=== PATIENT | male | born 1940 ===

== ENCOUNTER 2020-04-08 06:29 | Outpatient (REF) | payer MEDICARE, MEDICAID, SELFPAY | END 2020-04-08 06:30 | disposition home or self-care (01) | LOC: HO.LAB 06:29 | PROVIDERS: PCP Internal Medicine Geriatric Medicine; Visit Provider Internal Medicine | DX: Z20.822 Contact with and (suspected) exposure to COVID-19 (principal) | CPT/HCPCS: 36415; C9803; U0003 ==

== ENCOUNTER 2020-12-04 14:06 | Outpatient (REF) | payer MEDICARE, MEDICAID, SELFPAY ==
--- NOTE | 2020-12-04 | PFT_ITS ---
FLOWS: FEV1 of 81% of predicted at 2.19 L. FVC 77% of predicted at 2.77 L. FEV1 to FVC ratio of 0.79. No bronchodilator response. LUNG VOLUMES: Total lung capacity 72% of predicted at 4.67 L. Residual volume 81% of predicted at 2.00 L. Slow vital capacity 66% of predicted at 2.66 L. Expiratory reserve volume 39% of predicted at 0.39 L. Diffusion capacity is moderately decreased, diffusion capacity adjust to being mildly decreased after correction for alveolar ventilation. IMPRESSION: Mild restrictive ventilatory defect with no bronchodilator response. Mildly decreased diffusion capacity, particularly of the restrictive ventilatory defect to suggest underlying pulmonary parenchymal disease. Clinical correlation is advised. MD DEVI Roman/MODL / [id number]
== END 2020-12-04 14:07 | disposition home or self-care (01) ==
LOC: HO.RESP 14:06
PROVIDERS: PCP Internal Medicine Geriatric Medicine; Visit Provider Internal Medicine Geriatric Medicine
DX: R05 Cough (principal)
CPT/HCPCS: 94060; 94727; 94729

== ENCOUNTER → 2021-02-26 09:36 | Outpatient (BNVA) | payer MEDICARE, MEDICAID, SELFPAY | PROVIDERS: PCP Internal Medicine Geriatric Medicine; Visit Provider Hospitalist | DX: K21.00 Gastro-esophageal reflux disease with esophagitis, without bleeding (principal); J98.4 Other disorders of lung; R05.3 Chronic cough | CPT/HCPCS: 99202 ==

== ENCOUNTER 2021-04-09 09:24 | Outpatient (REF) | payer MEDICARE, MEDICAID, SELFPAY ==
--- NOTE | ~2021-04-09 | FL_ITS ---
EXAMINATION: FL BARIUM SWALLOW CLINICAL INFORMATION: Gastroesophageal reflux disease COMPARISON: None TECHNIQUE: Barium swallow examination is performed using fluoroscopic evaluation in addition to multiple fluoroscopic spot views. The patient is imaged both upright and prone and using both thick and thin sulfate along with effervescent granules. Barium tablet was also started. Fluoroscopy time: 0.9 minutes DAP: 7 Gycm2 Images: 45 FINDINGS: The swallowing mechanism is normal. Esophageal motility is normal. No aspiration or penetration is seen. There is a small sliding-type hiatal hernia. There is gastroesophageal reflux. No mass or stricture is seen. FL/FL barium swallow IMPRESSION: Small sliding-type hiatal hernia and gastroesophageal reflux.
== END 2021-04-09 09:25 | disposition home or self-care (01) ==
LOC: HO.XRAY 09:24
PROVIDERS: PCP Internal Medicine Geriatric Medicine; Visit Provider Hospitalist
DX: K21.00 Gastro-esophageal reflux disease with esophagitis, without bleeding (principal)
CPT/HCPCS: 74220

== ENCOUNTER → 2021-04-28 09:12 | Outpatient (BNVA) | payer MEDICARE, MEDICAID, SELFPAY | PROVIDERS: PCP Internal Medicine Geriatric Medicine; Visit Provider Hospitalist | DX: K21.00 Gastro-esophageal reflux disease with esophagitis, without bleeding (principal); K44.9 Diaphragmatic hernia without obstruction or gangrene; J98.4 Other disorders of lung; R05.3 Chronic cough | CPT/HCPCS: 99212 ==

== ENCOUNTER 2021-05-12 10:14 | Emergency (ER) | payer MEDICARE, MEDICAID, SELFPAY ==
--- NOTE | ~2021-05-12 | XR_ITS ---
EXAMINATION: XR CHEST CLINICAL INFORMATION: Generalized weakness COMPARISON: Previous chest x-ray July 2018 TECHNIQUE: Frontal view of the chest was obtained. FINDINGS: The cardiac silhouette is enlarged. The hilar and mediastinal contours are unremarkable. The lungs are clear. There is no pleural effusion or pneumothorax. There are degenerative changes of the spine. XR/XR chest 1V IMPRESSION: Enlarged cardiac silhouette.
[2021-05-12 10:18] VITALS: BP 173/73; BP 177/73; PULSE 76; PULSE 79; RESP 18; TEMP 37.1; O2SAT 96; O2SAT 98; BMI 25.8
--- NOTE | 2021-05-12 10:25 | ECG_ITS ---
Test Reason : nausea Blood Pressure : / mmHG Vent. Rate : 070 BPM Atrial Rate : 070 BPM P-R Int : 232 ms QRS Dur : 094 ms QT Int : 410 ms P-R-T Axes : 023 004 070 degrees QTc Int : 442 ms Sinus rhythm with 1st degree A-V block Voltage criteria for left ventricular hypertrophy ( R in aVL , Sokolow-Trujillo , Ariel product ) Anterior infarct , age undetermined Abnormal ECG No previous ECGs available Referred By: Jose Zapata Electronically Signed By:DAGOBERTO ROLAND
[2021-05-12 10:26] VITALS: BP 172/65; PULSE 74
[2021-05-12 10:28] VITALS: BP 160/66; PULSE 71
--- NOTE | 2021-05-12 10:28 | ED.GENADULT ---
HPI - General Adult General Chief complaint: Nausea/Vomiting/Diarrhea Stated complaint: VOMITING AND DIARRHEA X'S 1 DAY FROM MD OFFICE Time Seen by Provider: 05/12/21 10:25 Source: patient, EMS and old records reviewed Mode of arrival: EMS Limitations: no limitations History of Present Illness HPI narrative: A 81-year-old male brought in by ambulance from the doctor office for further evaluation for generalized weakness, vomiting and diarrhea. This is a 81-year-old male end-stage renal disease on dialysis last dialysis was yesterday lasted for 4 hours, patient went to see his primary doctor today for generalized weakness, generalized joint pain, feeling nauseous but no vomiting, had 2 diarrhea since yesterday described as black stool (patient described his stool as always is black because the medicine that he takes. Patient had history of upper endoscopy require some procedure likely esophageal dilation periodically. Patient declined any sick contact, patient received 3 COVID vaccination, do not feel flu-like sickness. PCP sent him into the hospital for further evaluation for his orthostatic vital signs at the office. Related Data Home Medications Medication Instructions Recorded Confirmed acetaminophen 325 mg tablet 325 mg PO QID PRN 02/26/21 (Tylenol) albuterol sulfate 90 mcg/actuation 0 mcg INHALATION 02/26/21 aerosol inhaler aspirin 81 mg tablet,delayed 81 mg PO DAILY 02/26/21 release atorvastatin 20 mg tablet 20 mg PO DAILY 02/26/21 carvedilol 25 mg tablet 25 mg PO BID 02/26/21 insulin aspart U-100 100 unit/mL SUBCUT 02/26/21 (3 mL) subcutaneous pen (Novolog Flexpen U-100 Insulin aspart) ketotifen fumarate 0.025 % (0.035 0 drp OPHTHALMIC (EYE) 02/26/21 %) eye drops (Alaway) omega-3 fatty acids 1,000 mg 0 mg PO BEDTIME 02/26/21 capsule tamsulosin 0.4 mg capsule 0.4 mg PO DAILY 02/26/21 mirtazapine 15 mg tablet 15 mg PO BEDTIME 04/28/21 Previous Rx's Medication Instructions Recorded omeprazole 40 mg capsule,delayed 40 mg PO DAILY #30 cap 02/26/21 release benzonatate 200 mg capsule 200 mg PO BID PRN 30 Days #60 cap 04/28/21 fluticasone furoate 100 1 inh INHALATION DAILY 30 Days #60 04/28/21 mcg-vilanterol 25 mcg/dose ea inhalation powder (Breo Ellipta) Allergies Allergy/AdvReac Type Severity Reaction Status Date / Time No Known Allergies Allergy Verified 04/28/21 09:21 Review of Systems Review of Systems: All other systems are reviewed and are negative Constitutional: Reports as per HPI and Reports no additional constitutional complaints Eyes: Reports as per HPI and Reports no additional eye complaints Reports system reviewed and no additional complaints, except as documented Cardiovascular: Reports as per HPI and Reports no additional cardiovascular complaints Respiratory: Reports as per HPI and Reports no additional respiratory complaints Gastrointestinal: Reports as per HPI and Reports no additional gastrointestinal complaints Genitourinary: Reports no additional female genitourinary complaints Musculoskeletal: Reports no additional musculoskeletal complaints Skin/Breast: Reports system reviewed and no additional complaints, except as docu Psychiatric: Reports no additional psychiatric complaints Endocrine: Reports no additional endocrine complaints Hematologic/Lymphatic: Reports no additional hematologic/lymphatic complaints Allergic/Immunologic: Reports no additional allergic/immunologic complaints Reports system reviewed and no additional complaints, except as documented and Reports Abnormal speech present. [facility] Past Medical History Medical History Chronic cough Chronic restrictive lung disease Diabetes ESRD (end stage renal disease) GERD (gastroesophageal reflux disease) Hiatal hernia Social History Social History Patient Tobacco Use Status: Never used Tobacco Use of substances other than those prescribed or required for medical reasons: No Advance Directives: No Advance Directives Information Provided: No Physical Exam ED Vital Signs: Vital Signs - 24 hr 05/12/21 10:18 05/12/21 10:26 05/12/21 10:28 Temperature 98.8 F Pulse Rate 79 74 71 Respiratory Rate 18 Blood Pressure 173/73 H 172/65 H 160/66 H Pulse Oximetry 96 05/12/21 10:31 05/12/21 14:36 Temperature 98.7 F Pulse Rate 73 73 Respiratory Rate 14 Blood Pressure 140/63 H 168/86 H Pulse Oximetry 95 BMI result Body Mass Index 25.8 Vital signs have been reviewed as appeared to be correct. Blood pressure normal. Heart rate normal. Respiration rate normal. Temperature normal. Oxygen saturation normal. Mild orthostatic hypotensive Appearance: Alert. Oriented X3. No acute distress. Head: Normal external exam. Normocephalic. Atraumatic. No Hughes signs noted. No raccoon eyes noted Eyes: PERRLA. EOMI. Conjunctiva and sclera normal. Eyelids normal. ENT: TM's Normal. Pharynx normal. Uvula midline. Moist mucous membranes. No trismus noted. No drooling noted. No muffled voice noted. Neck: Normal inspection. Neck supple. FROM. No adenopathy. Thyroid Normal. No meningeal signs. No neck mass noted. CVS: Normal heart rate and rhythm. Heart sound normal. No murmurs noted. Pulses normal throughout. Respiratory: No respiratory distress. Painless inspiration. Breath sounds normal. No wheezes/rales/rhonchi noted. Chest nontender. No accessory muscle usage noted or decreased air movement noted. Abdomen: Soft and nontender. Bowel sounds normal in all 4 quadrants. No distention noted. No organomegaly noted. No visible injury noted. Back: No CVA tenderness. Full range of motion noted. Skin: Skin warm and dry. Normal skin color. Normal skin turgor. No rashes/lesions/lacerations noted. Extremities: Left AV fistula. Neuro: Oriented X 3. Cranial nerve exam: II-XII are grossly intact No motor deficit. No sensory deficit. Reflexes normal. Course Course Course Narrative: Assessment and plan. 81-year-old male came in from PCP office for evaluation of vomiting yesterday, patient has no abdominal pain, patient received renal dialysis yesterday for hours, found to be orthostatic at the PCP office, patient received gentle hydration of 500 cc of normal saline, otherwise no leukocytosis, chronic anemia, no urine sample is available patient is aneuric, had 2 elevated troponin with no delta changes, patient has no chest pain, no shortness of breath, no dyspnea, no increase swelling or edema. Patient is able to tolerate p.o. intake in the emergency department without nausea or vomiting. Medical Decision Making Medical Records Medical records reviewed: Yes I reviewed the patient's medical records. Lab Data Lab results reviewed: Yes I reviewed the patient's lab results. Result diagrams: 05/12/21 10:40 05/12/21 10:40 Labs: Lab Results 05/12/21 05/12/21 05/12/21 Range/Units 10:37 10:40 10:40 WBC 8.3 (4.8-10.8) X10*3/uL RBC 3.50 L (4.60-5.80) X10*6/uL Hgb 11.3 L (14.0-18.0) g/dl Hct 34.6 L (42.0-52.0) % MCV 98.9 H (80.0-98.0) fL MCH 32.3 (27.0-33.0) pg MCHC 32.7 (31.0-36.0) g/dl RDW 13.8 (11.0-16.0) % Plt Count 194 (160-400) X10*3/uL MPV 9.2 L (9.4-12.4) fL Immature Gran % (Auto) 0.4 (0.0-0.4) % Neut % (Auto) 87.6 H (45-73) % Lymph % (Auto) 4.7 L (20-40) % Chaves % (Auto) 6.3 (2-11) % Eos % (Auto) 0.6 (0-4) % Baso % (Auto) 0.4 (0-2) % Lymph # (Auto) 0.4 L (1.2-4.9) X10*3/uL Chaves # (Auto) 0.5 (0.1-1.2) X10*3/uL Eos # (Auto) 0.1 (0.0-0.4) X10*3/uL Baso # (Auto) 0.0 (0.0-0.2) X10*3/uL Abs Immat Gran (auto) 0.03 (0.00-0.03) X10*3/uL Absolute Neuts (auto) 7.3 (2.0-8.3) x10*3/uL Absolute Nucleated RBC 0.000 (0.0-0.012) X10*3/uL Nucleated RBC % (auto) 0.0 (0.0-0.2) /100WBC Sodium 137 (135-145) mmol/L Potassium 4.8 (3.3-5.1) mmol/L Chloride 97 (96-108) mmol/L Carbon Dioxide 29 (22-29) mmol/L Anion Gap 16 (12-20) BUN 36 H (9-16) mg/dL Creatinine 8.64 H* (0.5-1.4) mg/dL Estim Creat Clear Calc 6.4 Estimated GFR 6 Random Glucose 187 H (60-115) mg/dL Calcium 9.7 (8.4-10.2) mg/dL Total Bilirubin 1.1 H (0.0-1.0) mg/dL Direct Bilirubin 0.3 (0.0-0.5) mg/dL AST 12 (5-37) U/L ALT 7 (0-40) U/L Alkaline Phosphatase 94 (39-117) U/L Troponin I High Sens (<3.5-35.0) ng/L B-Natriuretic Peptide (<100) pg/mL Total Protein 6.8 (6.5-8.0) g/dL Albumin 4.1 (3.5-5.0) g/dL Lipase 37 (8-78) U/L Stool Occult Blood (NEGATIVE) COVID-19 (JOSLYN) Negative (Negative) COVID-19 Clin Com See Note 05/12/21 05/12/21 05/12/21 Range/Units 10:40 10:40 13:52 WBC (4.8-10.8) X10*3/uL RBC (4.60-5.80) X10*6/uL Hgb (14.0-18.0) g/dl Hct (42.0-52.0) % MCV (80.0-98.0) fL MCH (27.0-33.0) pg MCHC (31.0-36.0) g/dl RDW (11.0-16.0) % Plt Count (160-400) X10*3/uL MPV (9.4-12.4) fL Immature Gran % (Auto) (0.0-0.4) % Neut % (Auto) (45-73) % Lymph % (Auto) (20-40) % Chaves % (Auto) (2-11) % Eos % (Auto) (0-4) % Baso % (Auto) (0-2) % Lymph # (Auto) (1.2-4.9) X10*3/uL Chaves # (Auto) (0.1-1.2) X10*3/uL Eos # (Auto) (0.0-0.4) X10*3/uL Baso # (Auto) (0.0-0.2) X10*3/uL Abs Immat Gran (auto) (0.00-0.03) X10*3/uL Absolute Neuts (auto) (2.0-8.3) x10*3/uL Absolute Nucleated RBC (0.0-0.012) X10*3/uL Nucleated RBC % (auto) (0.0-0.2) /100WBC Sodium (135-145) mmol/L Potassium (3.3-5.1) mmol/L Chloride (96-108) mmol/L Carbon Dioxide (22-29) mmol/L Anion Gap (12-20) BUN (9-16) mg/dL Creatinine (0.5-1.4) mg/dL Estim Creat Clear Calc Estimated GFR Random Glucose (60-115) mg/dL Calcium (8.4-10.2) mg/dL Total Bilirubin (0.0-1.0) mg/dL Direct Bilirubin (0.0-0.5) mg/dL AST (5-37) U/L ALT (0-40) U/L Alkaline Phosphatase (39-117) U/L Troponin I High Sens 47.2 H 48.3 H (<3.5-35.0) ng/L B-Natriuretic Peptide 3291 H (<100) pg/mL Total Protein (6.5-8.0) g/dL Albumin (3.5-5.0) g/dL Lipase (8-78) U/L Stool Occult Blood NEGATIVE (NEGATIVE) COVID-19 (JOSLYN) (Negative) COVID-19 Clin Com Imaging Data Chest x-ray: Attestation: I personally reviewed and interpreted this imaging study as follows: Radiologist's impression: Enlarged cardiac silhouette. ECG Data Attestation: I personally reviewed and interpreted this ECG as follows: Interpretation: Sinus rhythm with first-degree AV block, left axis deviation, LVH. Discharge Plan Discharge Clinical Impression: Dehydration, Chronic kidney failure, Vomiting Patient Disposition: Home, Self-Care Instructions: Dehydration (ED) Prescriptions: No Action mirtazapine 15 mg tablet 15 mg PO BEDTIME 0RF benzonatate 200 mg capsule 200 mg PO BID PRN (Reason: cough) 30 Days Qty: 60 0RF Breo Ellipta 100-25 mcg/dose blister with device 1 inh inhalation DAILY 30 Days Qty: 60 11RF insulin aspart U-100 [Novolog Flexpen U-100 Insulin] 100 unit/mL (3 mL) insulin pen subcut 0RF tamsulosin 0.4 mg capsule 0.4 mg PO DAILY 0RF aspirin 81 mg tablet,delayed release (DR/EC) 81 mg PO DAILY 0RF atorvastatin 20 mg tablet 20 mg PO DAILY 0RF carvedilol 25 mg tablet 25 mg PO BID 0RF ketotifen fumarate [Alaway] 0.025 % (0.035 %) drops 0 drp ophthalmic (eye) 0RF albuterol sulfate 90 mcg/actuation HFA aerosol inhaler 0 mcg inhalation 0RF omega-3 fatty acids 1,000 mg capsule 0 mg PO BEDTIME 0RF acetaminophen [Tylenol] 325 mg tablet 325 mg PO QID PRN0RF omeprazole 40 mg capsule,delayed release(DR/EC) 40 mg PO DAILY Qty: 30 6RF Referrals: Name,MD Abdiel [Primary Care Provider] - 2 days
[2021-05-12 10:31] VITALS: BP 140/63; PULSE 73
[2021-05-12] MEDS: 0.9 % Sodium Chloride 1,000 ML 500 ML IV (10:44)
[2021-05-12 10:47] LABS: MANUAL DIFF FLAG NO
[2021-05-12 10:48] LABS: Basophils Percent Auto 0.4 % (0-2); Eosinophils Absolute Auto 0.1 X10*3/uL (0.0-0.4); Eosinophils Percent Auto 0.6 % (0-4); Hematocrit 34.6 % (42.0-52.0); Hemoglobin 11.3 g/dl (14.0-18.0); Imm Gran Abs Auto 0.03 X10*3/uL (0.00-0.03); Imm Gran Pct Auto 0.4 % (0.0-0.4); Lymphocytes Absolute Auto 0.4 X10*3/uL (1.2-4.9); Lymphocytes Percent Auto 4.7 % (20-40); Mean Corpuscular HGB Conc 32.7 g/dl (31.0-36.0); Mean Corpuscular Hemoglobin 32.3 pg (27.0-33.0); Mean Corpuscular Volume 98.9 fL (80.0-98.0); Mean Platelet Volume 9.2 fL (9.4-12.4); Monocytes Absolute Auto 0.5 X10*3/uL (0.1-1.2); Monocytes Percent Auto 6.3 % (2-11); Neutrophils Absolute Auto 7.3 x10*3/uL (2.0-8.3); Neutrophils Percent Auto 87.6 % (45-73); Platelet Count 194 X10*3/uL (160-400); Red Cell Distribution Width 13.8 % (11.0-16.0); White Blood Count 8.3 X10*3/uL (4.8-10.8)
[2021-05-12 10:49] LABS: OBS Int Ctl Valid YES; OBS1 NEGATIVE (NEGATIVE)
[2021-05-12 11:12] LABS: Alanine Aminotransferase 7 U/L (0-40); Albumin Level 4.1 g/dL (3.5-5.0); Alkaline Phosphatase 94 U/L (39-117); Anion Gap 16 (12-20); Aspartate Amino Transferase 12 U/L (5-37); Bilirubin Direct 0.3 mg/dL (0.0-0.5); Bilirubin Total 1.1 mg/dL (0.0-1.0); Blood Urea Nitrogen 36 mg/dL (9-16); Calcium 9.7 mg/dL (8.4-10.2); Carbon Dioxide 29 mmol/L (22-29); Chloride 97 mmol/L (96-108); Creatinine Clr Calc Pharmacy 6.4; Estimated Glomerular Filt Rate 6; Glucose Random 187 mg/dL (60-115); Lipase 37 U/L (8-78); Potassium 4.8 mmol/L (3.3-5.1); Sodium 137 mmol/L (135-145); Total Protein 6.8 g/dL (6.5-8.0)
[2021-05-12 11:14] LABS: COVID-19 Test Negative (Negative)
[2021-05-12 11:15] LABS: B Type Natriuretic Peptide 3291 pg/mL (<100); Troponin-I High Sensitivity 47.2 ng/L (<3.5-35.0)
[2021-05-12 14:17] LABS: Troponin-I High Sensitivity 48.3 ng/L (<3.5-35.0)
[2021-05-12 14:36] VITALS: BP 168/86; PULSE 73; RESP 14; TEMP 37.1; O2SAT 95
== END 2021-05-12 15:48 | disposition home or self-care (01) ==
PROVIDERS: Emergency Provider Emergency Medicine; PCP Internal Medicine Geriatric Medicine
DX: E86.0 Dehydration (principal); R11.2 Nausea with vomiting, unspecified; E11.22 Type 2 diabetes mellitus with diabetic chronic kidney disease; I12.0 Hypertensive chronic kidney disease with stage 5 chronic kidney disease or end stage renal disease; N18.6 End stage renal disease; Z99.2 Dependence on renal dialysis; R53.1 Weakness; Z20.822 Contact with and (suspected) exposure to COVID-19; Z79.82 Long term (current) use of aspirin; Z79.02 Long term (current) use of antithrombotics/antiplatelets; Z79.4 Long term (current) use of insulin
CPT/HCPCS: 36415; 71045; 80048; 80076; 82272; 83690; 83880; 84484; 85025; 87635; 93005; 96360; 96361; 99284; 99285

== ENCOUNTER → 2021-11-19 10:31 | Outpatient (BNVA) | payer MEDICARE, MEDICAID, SELFPAY | PROVIDERS: PCP Internal Medicine Geriatric Medicine; Visit Provider Hospitalist | DX: R05.3 Chronic cough (principal); K21.00 Gastro-esophageal reflux disease with esophagitis, without bleeding; J98.4 Other disorders of lung; K44.9 Diaphragmatic hernia without obstruction or gangrene; Z79.899 Other long term (current) drug therapy | CPT/HCPCS: 99212 ==

== ENCOUNTER → 2022-06-24 12:40 | Outpatient (BNVA) | payer MEDICARE, MEDICAID, SELFPAY | PROVIDERS: PCP Internal Medicine Geriatric Medicine; Visit Provider Hospitalist | DX: R05.3 Chronic cough (principal); K21.00 Gastro-esophageal reflux disease with esophagitis, without bleeding; J98.4 Other disorders of lung; K44.9 Diaphragmatic hernia without obstruction or gangrene; Z79.899 Other long term (current) drug therapy | CPT/HCPCS: 99212 ==

== ENCOUNTER 2023-03-17 14:04 | Outpatient (AMB) | payer MEDICARE, MEDICAID, SELFPAY ==
--- NOTE | 2023-03-17 14:15 | A.OFFVIS_ITS ---
Intake Vital Signs 03/17/23 14:17 Height 5 ft 7 in Weight 170 lb BMI 26.6 Pulse 73 Pulse Source Pulse Oximeter Pulse Oximetry (%) 97 Oxygen Delivery Method Room Air Intake Visit Reasons: COPD [employer] Tech Required: No Allergies No Known Allergies Allergy (Verified 03/17/23 14:18) HPI HPI Comments History of Present Illness0 Details The patient is a 83-year-old gentleman with a known history of diabetes and end-stage renal disease on dialysis for the last few years who apparently has been complaining of worsening cough usually at nighttime. The cough is moderately is moderate severity. Usually is nonproductive although sometimes it can be productive. Usually worse at nighttime when he is lying flat. Patient does have some reflux symptoms. On further questioning while he lived in [place] the patient did undergo endoscopies and he did require some type of procedure likely in as esophageal dilation. The patient was told that he may need this every few years. However, he forgot about it. He has been using home remedies for his cough with partial resolution of the symptoms. We talked about the importance of her reflux diet. The patient will look to see about raising the head of the bed to minimize potential pharyngeal laryngeal penetration of reflux. The patient had been taking a PPI in the past but subsequently stopped. He also complains of shortness of breath. We did go for brief walking oximetry in the patient did extremely well although his legs got tired. From an oxygen standpoint his pulse ox stayed in the high 90s and his heart rate actually stated in the low 90s which is excellent. The only reason we stop this because his legs were getting tired. The patient does have a short-acting beta agonist that he uses as needed. He did undergo pulmonary function studies prior to this visit and we did personally reviewed. The patient does have a mild restrictive ventilatory defect of unclear etiology. He also has a moderate diffusion impairment. He also had a chest x-ray at [facility] which we personally reviewed demonstrating some slight haziness over the right mid lung area. This brings up the concern of the possibility of underlying reflux related or micro aspirations into the lungs. Will treat the patient medically and also plan to do a barium swallow. However, if he continues with a cough and shortness of breath will plan to do a CT scan in view of the abnormal pulmonary function studies and also the abnormal chest x-ray. 04/28/2021 the patient is here for pulmona ry follow-up visit. Continues with cough. The Tessalon Perles have been helpful. He also has been using the PPI once a day also with some partial relief. The cough is [id number] severity. We did review his barium swallow demonstrating a small hiatal hernia. Therefore, we talked strictly about the reflux diet, having small meals and also sleeping elevated. In addition to that the patient does describe that he does cough after he eats or while he is eating. He may have a component of dysphagia. Therefore, we talked about different techniques such as chin tuck, alternating liquids and solids and also making sure that he has more meals. Therefore, will continue with reflux diet and continue with the benzo night's. If the patient's symptoms persist then additional imaging studies will be warranted. 11/19/2021 the patient is here for pulmonary follow-up visit. He continues to do well. He is tolerating the Breo. He feels that the therapy has been effective. He also continues with PPI in the reflux diet. We did review his chest x-ray that he had back in April of this year which demonstrated increased cardiac size. Patient is aware of this. In the meantime he continues with dialysis without any issues. Will continue with current respiratory regimen. 03/17/23 the patient is here for a pulmo nary follow-up visit. The patient overall is doing well. He cough is much better. The cough is nonproductive in nature. We did talk about his reflux disease and making sure that he is needs elevated because of his hiatal hernia. The patient also has been using his inhalers. He also has responded well to the benzonatate although the not covered by insurance. I did give him a prescription that he can still with his good Rx card. Has no longer required his rescue inhaler or maintenance inhalers. Otherwise patient is doing well. He continues with his renal replacement therapy. No additoinal testing needed. [facility] Medical History Chronic cough Chronic restrictive lung disease Diabetes ESRD (end stage renal disease) GERD (gastroesophageal reflux disease) Hiatal hernia Social History Patient Tobacco Use Status: Never used Tobacco Review of Systems Const Denies night sweats ENT Denies change in voice, Reports dysphagia, Denies lip swelling, Denies mouth pain, Reports nasal congestion, Reports nasal discharge and Denies tongue swelling Card Denies chest pain and Denies dyspnea on exertion Resp Reports cough and Denies dyspnea on exertion GI Denies abdominal pain and Reports dysphagia Musc Denies no additional complaints Neuro Denies Neuro-related abnormal movements Psych Denies no additional complaints Daniel/Lymph Denies easy bleeding and Denies lymphadenopathy Aller/Immun Denies lip swelling and Denies tongue swelling Physical Exam Vital Signs: Last Vital Signs Pulse 73 03/17/23 14:17 Pulse Ox 97 03/17/23 14:17 Oxygen Delivery Method Room Air 03/17/23 14:17 BMI result Body Mass Index 26.6 Const General: alert Neck Neck: Yes normal visual inspection, Yes full ROM and Yes no lymphadenopathy Chest Chest palpation & inspection: normal inspection of the chest Resp Auscultation: no rhonchi and diminished lung sounds Cardio Rate: regular rate Rhythm: regular rhythm Heart sounds: S1 normal heart sound present and S2 normal heart sound present GI Palpation (GI): Soft to palpation and nontender Auscultation: normal bowel sounds Skin General skin exam: rashes and/or lesions noted Assessment & Plan Assessment & Plan (1) Chronic cough: Code(s): R05.3 - Chronic cough (2) GERD (gastroesophageal reflux disease): Code(s): K21.9 - Gastro-esophageal reflux disease without esophagitis Qualifiers: Esophagitis bleeding: without hemorrhage Esophagitis presence: with esophagitis Qualified Code(s): K21.00 - Gastro-esophageal reflux disease with esophagitis, without bleeding (3) Chronic restrictive lung disease: Code(s): J98.4 - Other disorders of lung (4) Hiatal hernia: Code(s): K44.9 - Diaphragmatic hernia without obstruction or gangrene Plan continue reflux diet Small meals and sleep with the head of bed elevated continue PPI continue Tessalon pearls as needed for cough stopped Breo daily follow-up as needed Coding Level of Care Code Est Pt Level 4 (59444) Diagnoses Chronic cough R05.3 Gastroesophageal reflux disease with esophagitis without hemorrhage K21.00 Esophagitis bleeding: without hemorrhage Esophagitis presence: with esophagitis Chronic restrictive lung disease J98.4 Hiatal hernia K44.9 Time Spent (min) 15
[2023-03-17 14:17] VITALS: PULSE 73; O2SAT 97; BMI 26.6
== END 2023-03-17 14:39 | disposition home or self-care (01) ==
PROVIDERS: PCP Internal Medicine Geriatric Medicine; Visit Provider Hospitalist
DX: R05.3 Chronic cough (principal); K21.00 Gastro-esophageal reflux disease with esophagitis, without bleeding; J98.4 Other disorders of lung; K44.9 Diaphragmatic hernia without obstruction or gangrene
CPT/HCPCS: 99214

== ENCOUNTER → 2023-03-17 14:04 | Outpatient (BNVA) | payer MEDICARE, MEDICAID, SELFPAY | PROVIDERS: PCP Internal Medicine Geriatric Medicine; Visit Provider Hospitalist | DX: R05.3 Chronic cough (principal); J98.4 Other disorders of lung; K21.00 Gastro-esophageal reflux disease with esophagitis, without bleeding; K44.9 Diaphragmatic hernia without obstruction or gangrene | CPT/HCPCS: 99212 ==

== ENCOUNTER 2023-05-22 09:25 | Outpatient (AMB) | payer MEDICARE, MEDICAID, SELFPAY ==
--- NOTE | 2023-05-22 10:19 | A.OFFVIS_ITS ---
Intake Vital Signs 05/22/23 10:20 Height 5 ft 7 in Weight 160 lb BMI 25.1 Pulse 65 Pulse Source Pulse Oximeter Pulse Oximetry (%) 98 Oxygen Delivery Method Room Air Intake Visit Reasons: shortness of breath, wheezing Department Supervisor Required: No Allergies No Known Allergies Allergy (Verified 05/22/23 10:21) HPI HPI Comments History of Present Illness Details The patient is a 83-year-old gentleman with a known history of diabetes and end-stage renal disease on dialysis for the last few years who apparently has been complaining of worsening cough usually at nighttime. The cough is moderately is moderate severity. Usually is nonproductive although sometimes it can be productive. Usually worse at nighttime when he is lying flat. Patient does have some reflux symptoms. On further questioning while he lived in [place] the patient did undergo endoscopies and he did require some type of procedure likely in as esophageal dilation. The patient was told that he may need this every few years. However, he forgot about it. He has been using home remedies for his cough with partial resolution of the symptoms. We talked about the importance of her reflux diet. The patient will look to see about raising the head of the bed to minimize potential pharyngeal laryngeal penetration of reflux. The patient had been taking a PPI in the past but subsequently stopped. He also complains of shortness of breath. We did go for brief walking oximetry in the patient did extremely well although his legs got tired. From an oxygen standpoint his pulse ox stayed in the high 90s and his heart rate actually stated in the low 90s which is excellent. The only reason we stop this because his legs were getting tired. The patient does have a short-acting beta agonist that he uses as needed. He did undergo pulmonary function studies prior to this visit and we did personally reviewed. The patient does have a mild restrictive ventilatory defect of unclear etiology. He also has a moderate diffusion impairment. He also had a chest x-[facility] at [facility] which we perso kathryn reviewed demonstrating some slight haziness over the right mid lung area. This brings up the concern of the possibility of underlying reflux related or micro aspirations into the lungs. Will treat the patient medically and also plan to do a barium swallow. However, if he continues with a cough and shortness of breath will plan to do a CT scan in view of the abnormal pulmonary function studies and also the abnormal chest x-ray. 04/28/2021 the patient is here for pulmona ry follow-up visit. Continues with cough. The Tessalon Perles have been helpful. He also has been using the PPI once a day also with some partial relief. The cough is kyxm-dv-mabirhes severity. We did review his barium swallow demonstrating a small hiatal hernia. Therefore, we talked strictly about the reflux diet, having small meals and also sleeping elevated. In addition to that the patient does describe that he does cough after he eats or while he is eating. He may have a component of dysphagia. Therefore, we talked about different techniques such as chin tuck, alternating liquids and solids and also making sure that he has more meals. Therefore, will continue with reflux diet and continue with the benzo night's. If the patient's symptoms persist then additional imaging studies will be warranted. 11/19/2021 the patient is here for pulmonary follow-up visit. He continues to do well. He is tolerating the Breo. He feels that the therapy has been effective. He also continues with PPI in the reflux diet. We did review his chest x-ray that he had back in April of this year which demonstrated increased cardiac size. Patient is aware of this. In the meantime he continues with dialysis without any issues. Will continue with current respiratory regimen. 03/17/23 the patient is here for a pulmo nary follow-up visit. The patient overall is doing well. He cough is much better. The cough is nonproductive in nature. We did talk about his reflux disease and making sure that he is needs elevated because of his hiatal hernia. The patient also has been using his inhalers. He also has responded well to the benzonatate although the not covered by insurance. I did give him a prescription that he can still with his good Rx card. Has no longer required his rescue inhaler or maintenance inhalers. Otherwise patient is doing well. He continues with his renal replacement therapy. No additoinal testing needed. 05/22/2023 the patient is here for a pulmonary follow-up visit. The patient had called several days ago with worsening respiratory symptoms chest tightness and wheezing. he had been off the Breo. He does have seasonal allergies. May be transitioning over to the spring weather. The patient did restart the Breo. Has responded well to the prednisone and had been taking a course of azithromycin. Symptoms are better although he still complains of a cough. Denies any significant chest congestion at this time. He continues with dialysis as tolerated. He has been complaining of increasing dyspnea symptoms. Moderate to severe. He does use a cane. While in the office we did go for brief walking oximetry. The patient did not desaturate any point but was visibly dyspneic with a dyspnea score of 7/10. Also to note the patient had a heart rate of 60s to 70s while ambulating. could be related to his underlying beta blockers. In view of his ongoing dyspnea symptoms though, I do believe that a cardiology evaluation will be helpful. Will also request an echocardiogram. The patient should have an x-ray as well specially with his ongoing symptoms. The patient did not qualify for oxygen with activity. Will request an overnight oximetry to address any nocturnal hypoxia. [facility] Medical History (Updated 05/22/23 @ 10:38 by Trent Osorio MD) Dyspnea Asthma-COPD overlap syndrome Hiatal hernia Diabetes ESRD (end stage renal disease) Chronic restrictive lung disease GERD (gastroesophageal reflux disease) Chronic cough Social History Patient Tobacco Use Status: Never used Tobacco Review of Systems Const Denies night sweats ENT Denies change in voice, Reports dysphagia, Denies lip swelling, Denies mouth pain, Reports nasal congestion, Reports nasal discharge and Denies tongue swelling Card Denies chest pain, Reports dyspnea and Reports dyspnea on exertion Resp Reports cough, Reports dyspnea, Reports dyspnea on exertion and Reports wheezing GI Denies abdominal pain and Reports dysphagia Musc Denies no additional complaints Neuro Denies Neuro-related abnormal movements Psych Denies no additional complaints Daniel/Lymph Denies easy bleeding and Denies lymphadenopathy Aller/Immun Denies lip swelling, Denies tongue swelling and Reports wheezing Physical Exam Vital Signs: Last Vital Signs Pulse 65 05/22/23 10:20 Pulse Ox 98 05/22/23 10:20 Oxygen Delivery Method Room Air 05/22/23 10:20 BMI result Body Mass Index 25.1 Const General: alert Neck Neck: Yes normal visual inspection, Yes full ROM and Yes no lymphadenopathy Chest Chest palpation & inspection: normal inspection of the chest Resp Auscultation: no rhonchi and diminished lung sounds Cardio Rate: regular rate Rhythm: regular rhythm Heart sounds: S1 normal heart sound present and S2 normal heart sound present GI Palpation (GI): Soft to palpation and nontender Auscultation: normal bowel sounds Skin General skin exam: rashes and/or lesions noted Assessment & Plan Assessment & Plan (1) Chronic cough: Code(s): R05.3 - Chronic cough (2) GERD (gastroesophageal reflux disease): Code(s): K21.9 - Gastro-esophageal reflux disease without esophagitis Qualifiers: Esophagitis bleeding: without hemorrhage Esophagitis presence: with esophagitis Qualified Code(s): K21.00 - Gastro-esophageal reflux disease with esophagitis, without bleeding (3) Chronic restrictive lung disease: Code(s): J98.4 - Other disorders of lung (4) Hiatal hernia: Code(s): K44.9 - Diaphragmatic hernia without obstruction or gangrene (5) Asthma-COPD overlap syndrome: Code(s): J44.89 - Other specified chronic obstructive pulmonary disease (6) Dyspnea: Code(s): R06.00 - Dyspnea, unspecified Plan continue reflux diet Small meals and sleep with the head of bed elevated continue PPI continue Tessalon pearls as needed for cough restart Breo daily SADIE as needed CXR ECHO Cardiology evaluation follow-up 3-4 months Orders: Orders XR chest 2V Today J98.4 - Other disorders of lung Overnight Pulse Oximetry Today J44.89 - Other specified chronic obstructive pulmonary disease CA echo transthoracic complete Today I27.20 - Pulmonary hypertension, unspecified, R06.00 - Dyspnea, unspecified Referrals 2 Cardiology Referral R06.00 - Dyspnea, unspecified Coding Level of Care Code Est Pt Level 4 (82792) Diagnoses Chronic cough R05.3 Gastroesophageal reflux disease with esophagitis without hemorrhage K21.00 Esophagitis bleeding: without hemorrhage Esophagitis presence: with esophagitis Chronic restrictive lung disease J98.4 Hiatal hernia K44.9 Asthma-COPD overlap syndrome J44.89 Dyspnea R06.00 Time Spent (min) 18
[2023-05-22 10:20] VITALS: PULSE 65; O2SAT 98; BMI 25.1
== END 2023-05-22 10:45 | disposition home or self-care (01) ==
PROVIDERS: PCP Internal Medicine Geriatric Medicine; Visit Provider Hospitalist
DX: R05.3 Chronic cough (principal); K21.00 Gastro-esophageal reflux disease with esophagitis, without bleeding; J98.4 Other disorders of lung; K44.9 Diaphragmatic hernia without obstruction or gangrene; J44.89 Other specified chronic obstructive pulmonary disease; R06.00 Dyspnea, unspecified
CPT/HCPCS: 99214

== ENCOUNTER → 2023-05-22 09:25 | Outpatient (BNVA) | payer MEDICARE, MEDICAID, SELFPAY | PROVIDERS: PCP Internal Medicine Geriatric Medicine; Visit Provider Hospitalist | DX: R05.3 Chronic cough (principal); J98.4 Other disorders of lung; J44.89 Other specified chronic obstructive pulmonary disease; R06.00 Dyspnea, unspecified; K21.00 Gastro-esophageal reflux disease with esophagitis, without bleeding; K44.9 Diaphragmatic hernia without obstruction or gangrene | CPT/HCPCS: 99212 ==

== ENCOUNTER → 2023-06-23 08:01 | Outpatient (REF) | payer MEDICARE, MEDICAID, SELFPAY ==
--- NOTE | 2023-06-23 08:05 | CA_ITS ---
Transthoracic Echocardiogram Patient (Last, First, Middle): David Chavez, Gender: Male Date of : 1940 Age: 83 Procedure Date: 06/23/2023 Procedure Type: Transthoracic Echocardiogram Location: OP Height: 170.18 cm Weight: 77.11 kg BSA: 1.89 m2 Heart Rate: bpm BP: 124 / 80 mmHg Blanket Weaver: Referring MD: Trent Osorio MD Lan Administrator: Erickson Muir MD Symptoms: I27.20 - Pulmonary hypertension, unspecified Study Quality: Good ECG Rhythm: Sinus Conclusions: - 1. Severely reduced LV ejection fraction of 25-30% with moderate left ventricular hypertrophy with elevated filling pressures 2. Moderately dilated left atrium 3. Early mild aortic stenosis 4. Mitral calcification with mild mitral regurgitation 5. Normal RV systolic pressure 6. Mildly dilated ascending aorta at 3.9 cm 7. No pericardial effusion Findings Left Ventricle Normal left ventricular cavity size. There is moderately increased left ventricular wall thickness. The left ventricular systolic function is severely decreased. The visually estimated ejection fraction is between 25 30%. Spectral Doppler is indicative of an impaired relaxation filling pattern. Elevated filling pressures. E/E prime ratio is >15, consistent with elevated filling pressures. Right Ventricle Moderately increased right ventricular cavity size. There is normal right ventricular systolic function. Atria The left atrium is moderately dilated. There is no evidence of interatrial shunt. The right atrium is mildly dilated. Aortic Valve There is mild calcification of the aortic valve. There is mild thickening of the aortic valve. The peak aortic gradient is 14 mmHg.The mean gradient is 7 mmHg. There is trace (trivial) aortic valve regurgitation. Mitral Valve There is mild anterior and moderate posterior mitral leaflet thickening. There is mild mitral annular calcification. There is mild mitral valve regurgitation. There is no mitral valve stenosis. Pulmonic Valve The pulmonic valve is likely normal. There is trace to mild pulmonic valve regurgitation. Tricuspid Valve Normal tricuspid valve structure. There is mild tricuspid valve regurgitation. The right ventricular systolic pressure is normal. The right ventricular systolic pressure is 22 mmHg. Normal right atrial pressure. There is no evidence of pulmonary hypertension. Great Vessels The pulmonary artery was not well visualized. There is mild dilatation of the ascending aorta measuring 3.90 cm. Venous The inferior vena cava is normal in size and collapses greater than 50% with inspiration. Pericardium/Pleural There is no evidence of pericardial effusion. Prior Study Comparison No prior study available for comparison. Measurements 2D Linear Measurements IVSd: 1.44 0.6-0.9/0.6-1.0 cm LVIDd: 5.58 3.9-5.3/4.2-5.9 cm LVIDd Index: 2.95 2.4-3.2/2.2-3.1 cm/m2 LVIDs: 4.03 2.0-3.6 cm LVPWd: 1.41 0.7-1.1 cm Ao Root: 3.70 2.1-3.5 cm LA Diam: 5.50 2.7-3.8/3.0-4.0 cm LAIDs Index: 2.91 1.5-2.3 cm/m2 LV Mass: 442.35 67-162/88-224 g LV Mass Index: 234.05 43-95/49-115 g/m2 LVOT Diam: 2.50 3.0+(-)1.3 cm 2D Systolic Function EF 4C: 40.40 >55% EF 2C: 24.80 >55% EF BiP: 29.70 >55% Mitral Valve MV Pk E: 0.80 MV PK A: 0.97 MV Decel Time: 210.00 E/A: 0.80 E'Lateral: 3.70 E'Medial: 3.15 E/E' Med: 25.40 E/E' Lat: 21.60 PHT: 62.00 MVA PHT: 3.55 Decel [place]: 3.82 Aortic Valve AoV Pk Manuel: 1.86 AoV Mn Manuel: 1.17 AoV VTI: 0.45 AoV Pk Grad: 14.00 Aov Mn Grad: 7.00 ZHANG Cont.VTI: 2.21 LVOT LVOT Pk Manuel: 0.89 LVOT Mn Manuel: 0.54 LVOT VTI: 0.20 LVOT Pk Grad: 3.00 LVOT Mn Grad: 1.00 LVOT Diam: 2.50 LVOT Area: 4.91 Diastolic Function MV Pk E: 0.80 MV Pk A: 0.97 E/A: 0.80 E'Medial: 3.15 E/E' Med: 25.40 E' Laterial: 3.70 E/E' Lat: 21.60 Right Ventricle TAPSE (mm): 27.00 TVS' Manuel: 12.00 Tricuspid Valve TR Pk Manuel: 2.16 TR Pk Grad: 19.00 RA Press: 3.00 RVSP: 22.00 Great Vessels Aorta Ao Root-2D: 3.70 2.0-3.7 cm Ao Asc: 3.90 2.1-3.4 cm Pulmonary Valve PV Pk Manuel: 1.15 Peak PV Grad: 5.00 Updated in Other Vendor System with Status of Final Erickson Muir MD electronically signed on 06/24/2023 11:10:37 AM with status of Final
== END ==
LOC: HO.CARD 08:01
PROVIDERS: PCP Internal Medicine Geriatric Medicine; Visit Provider Hospitalist
DX: I27.20 Pulmonary hypertension, unspecified (principal); R06.00 Dyspnea, unspecified
CPT/HCPCS: 93306

== ENCOUNTER → 2023-06-23 08:05 | Outpatient (BNV) | payer MEDICARE, MEDICAID, SELFPAY | PROVIDERS: PCP Internal Medicine Geriatric Medicine; Visit Provider Internal Medicine Cardiovascular Disease | DX: I35.0 Nonrheumatic aortic (valve) stenosis (principal); I34.0 Nonrheumatic mitral (valve) insufficiency; I34.81 Nonrheumatic mitral (valve) annulus calcification | CPT/HCPCS: 93306 ==

== ENCOUNTER 2023-07-26 11:06 | Outpatient (AMB) | payer MEDICARE, MEDICAID, SELFPAY ==
--- NOTE | 2023-07-26 11:08 | MHC.OFFVIS ---
Vital Signs 07/26/23 11:09 Height 5 ft 7 in Weight 163 lb 2.273 oz BMI 25.5 BP 130/68 Blood Pressure Location Rt brachial Position Sitting Pulse 62 Intake Visit Reasons: NPV/Devon/Dyspnea Intake Note: New patient dx dyspnea c/o sob E Marketing Specialist: E Marketing Specialist Present Accompanied by: Daughter Allergies No Known Allergies Allergy (Verified 05/22/23 10:21) Medication List - Last Reconciled 07/26/23 by Erickson Muir MD acetaminophen (Tylenol) 325 mg PO QID PRN albuterol sulfate 90 mcg/actuation 0 mcg inhalation aspirin 81 mg PO DAILY atorvastatin 20 mg PO DAILY calcitriol 1.5 mcg PO BID carvedilol 25 mg PO BID ferric citrate (Auryxia) 3 tabs PO TID fluticasone furoate-vilanterol 100-25 mcg/dose (Breo Ellipta) 1 ea inhalation DAILY ketotifen fumarate 0.025%(0.035%) ([place]) 0 drps ophthalmic (eye) mirtazapine 15 mg PO BEDTIME omeprazole 40 mg PO DAILY HPI Comments Details: Thank you for referring David in cardiology consultation today for worsening shortness of breath. Patient is 83-year-old pleasant male, presents with his daughter. Patient with prior history of diabetes, now end-stage renal disease on hemodialysis related to diabetic nephropathy as per him. Since then he has currently not taking any diabetic medications. Longstanding hypertension, hyperlipidemia he has never had any prior cardiac diagnosis. He has never had any coronary artery disease or congestive heart failure. He does carry diagnose of asthma/COPD overlap syndrome. He has been having progressively exertional shortness of breath over the last several months as per the daughter. He also gets short of breath when he is sleeping at nighttime and has to open the window. As per the daughter he does like a fan to get better air at nighttime. He has sometimes been given oxygen also during dialysis sessions because he has been short of breath. He has not had any significant chest discomfort. Does complain of exertional shortness of breath per as per the daughter he is minimize of his symptoms. He has not noticed any leg swelling. He does not monitor his blood pressure at home is not aware of blood pressure echocardiogram during dialysis sessions. He has been taking all his medications regularly. Denies any lightheadedness, syncope. Recent echocardiogram was done because of his symptoms which showed severe LV systolic dysfunction with LVEF of 25-30% with moderate LVH with moderately dilated left atrium and early mild aortic stenosis with mildly dilated ascending aorta. [facility] Medical History Cardiomyopathy Dyspnea Asthma-COPD overlap syndrome Hiatal hernia Diabetes ESRD (end stage renal disease) Chronic restrictive lung disease GERD (gastroesophageal reflux disease) Chronic cough Social History Patient Tobacco Use Status: Never used Tobacco Review of Systems Const Denies chills, Denies daytime sleepiness, Denies fatigue, Denies fever(s), Denies frequent falls, Denies poor appetite, Denies snoring, Denies stops breathing during sleep, Denies weakness, Denies weight gain and Denies weight loss Eyes Denies loss of vision ENT Denies dizziness and Denies hearing loss Card Denies chest pain, Denies claudication, Denies leg edema, Denies lightheadedness, Denies palpitations, Denies dyspnea, Denies dyspnea on exertion and Denies orthopnea Resp Denies cough, Denies excessive phlegm production, Denies dyspnea, Denies dyspnea on exertion, Denies snoring and Denies wheezing GI Denies abdominal pain, Denies hematochezia, Denies change in bowel habits, Denies nausea and Denies vomiting Denies dysuria and Denies urinary frequency Musc Denies arthralgias, Denies muscle weakness, Denies numbness and Denies other (frequent falls) Skin/Breast Denies nail changes and Denies rash Neuro Denies Abnormal speech present, Denies dizziness, Denies frequent falls, Denies loss of vision, Denies memory loss, Denies numbness and Denies weakness Psych Denies depression and Denies memory loss Endo Denies fatigue and Denies palpitations Daniel/Lymph Reports easy bruising and Reports other (anemia) Aller/Immun Denies wheezing Physical Exam Vital Signs: Last Vital Signs Pulse 62 07/26/23 11:09 BP 130/68 07/26/23 11:09 BMI result Body Mass Index 25.5 Const General: cooperative, comfortable, no acute distress, alert and awake Nutritional Appearance: average body habitus Orientation/consciousness: patient oriented x3 Limitations: no limitations HEENT Head: Yes normocephalic and Yes atraumatic Neck Neck: Yes trachea midline, Yes supple and Yes no JVD Resp Effort & Inspection: normal respiratory effort Auscultation: clear to auscultation bilaterally Cardio Jugular venous distension: no JVD Palpation: abnormal PMI displaced PMI Rate: regular rate Rhythm: regular rhythm Heart sounds: S1 normal heart sound present, S2 normal heart sound present, no click, no gallops and Murmur heart sound present systolic early, decrescendo and crescendo GI Auscultation: normal bowel sounds Skin General skin exam: no rashes or lesions noted Neuro General: patient oriented x3 and no focal motor deficits Speech: No Abnormal speech present Extrem General: Yes no clubbing, cyanosis or edema Psych Appearance: grossly normal Office Procedures EKG Details: EKG shows normal sinus rhythm with first-degree AV block with LVH with repolarization abnormality [id number], Complete Assessment & Plan Assessment & Plan (1) Cardiomyopathy: Code(s): I42.9 - Cardiomyopathy, unspecified Category: Medical Plan: Patient with severe cardiomyopathy with severe LV systolic dysfunction with symptoms suggestive of congestive heart failure although clinically does appear to be significantly fluid overloaded at this point in time. Possibility of underlying significant ischemic coronary artery disease given longstanding diabetes as well as end-stage renal disease is high. This was discussed with him. I think he will benefit from invasive cardiac catheterization to evaluate for coronary anatomy as well as evaluate for hemodynamics. This will be scheduled in very near future. Further treatment based on the findings. Possible outcomes were discussed. Discussed with him about risks, benefits, alternatives to the procedure. He understands and agrees. Will schedule him on his dialysis day followed by dialysis in the hospital post cardiac catheterization. Will discuss this with his crocheter. Also given his symptoms of heart failure and symptoms suggestive of orthopnea/PND I would suggest to proceed with more fluid removal by at least half a kg to aid in improvement in his symptoms. He is currently on carvedilol therapy which will be continued for neurohormonal modulation. I have advised him to monitor blood pressure more closely at home on non dialysis days and then follow-up pressures that are measured in the dialysis center and maintain a log. Will further target therapy with afterload reduction with hydralazine and Isordil combination based on his blood pressure readings. Will follow up in the clinic after cardiac catheterization. Thank you for allowing me to partake in his care Orders: Orders Cardiac Cath RAYMOND Diagnostic 1 Week I42.9 - Cardiomyopathy, unspecified Complete Blood Count no Diff Today I42.9 - Cardiomyopathy, unspecified Basic Metabolic Panel Today I42.9 - Cardiomyopathy, unspecified B Type Natriuretic Peptide Today R06.00 - Dyspnea, unspecified Prothrombin Time INR Today I42.9 - Cardiomyopathy, unspecified Coding Level of Care Code New Pt Level 4 (90548) Diagnoses Cardiomyopathy I42.9 CPT Codes EKG - CPT: 18338-[id number], Complete ([id number])
[2023-07-26 11:09] VITALS: BP 130/68; PULSE 62; BMI 25.5
== END 2023-07-26 11:39 | disposition home or self-care (01) ==
PROVIDERS: PCP Internal Medicine Geriatric Medicine; Visit Provider Internal Medicine Cardiovascular Disease
DX: I42.9 Cardiomyopathy, unspecified (principal); I44.0 Atrioventricular block, first degree
CPT/HCPCS: 93010; 99214

== ENCOUNTER → 2023-07-26 11:06 | Outpatient (BNVA) | payer MEDICARE, MEDICAID, SELFPAY | PROVIDERS: PCP Internal Medicine Geriatric Medicine; Visit Provider Internal Medicine Cardiovascular Disease | DX: I42.9 Cardiomyopathy, unspecified (principal) | CPT/HCPCS: 93005; 99212 ==

== ENCOUNTER → 2023-08-10 23:59 | Outpatient (BNV) | payer MEDICARE, MEDICAID, SELFPAY | PROVIDERS: PCP Internal Medicine Geriatric Medicine; Visit Provider Internal Medicine Cardiovascular Disease | DX: I50.20 Unspecified systolic (congestive) heart failure (principal); I42.9 Cardiomyopathy, unspecified | CPT/HCPCS: 93460; 99152 ==

== ENCOUNTER 2023-08-28 13:36 | Outpatient (AMB) | payer MEDICARE, MEDICAID, SELFPAY ==
--- NOTE | 2023-08-28 14:01 | MHC.OFFVIS ---
Vital Signs 08/28/23 14:02 Height 5 ft 7 in Weight 164 lb 14.492 oz BMI 25.8 BP 124/72 Blood Pressure Location Rt brachial Position Sitting Pulse 71 Pulse Source Pulse Oximeter Intake Visit Reasons: Follow up post cardiac cath Auto Job Estimator Required: No Oil Recovery Operator: Oil Recovery Operator Present Allergies No Known Allergies Allergy (Verified 08/28/23 14:05) Medication List - Last Reconciled 08/28/[address] [employer] REPA[employer]ER-C acetaminophen (Tylenol) 325 mg PO QID PRN albuterol sulfate 90 mcg/actuation 0 mcg inhalation aspirin 81 mg PO DAILY atorvastatin 20 mg PO DAILY calcitriol 1.5 mcg PO BID carvedilol 25 mg PO BID ferric citrate (Auryxia) 3 tabs PO TID fluticasone furoate-vilanterol 100-25 mcg/dose (Breo Ellipta) 1 ea inhalation DAILY ketotifen fumarate 0.025%(0.035%) ([place]away) 0 drps ophthalmic (eye) mirtazapine 15 mg PO BEDTIME omeprazole 40 mg PO DAILY HPI HPI Follow up post cardiac cath: Details: David is an 83-year-old male with past medical history of hypertension, hyperlipidemia, diabetes, end-stage renal disease, on dialysis, asthma/COPD overlap syndrome who was evaluated for shortness of breath. An echocardiogram confirmed significant cardiomyopathy and he was referred for cardiac catheterization which showed 2 vessel CAD. He was referred to Cardiac surgery and is awaiting a appointment. Today he reports that he continues to have shortness of breath with activity. His breathing is comfortable at rest. He denies PND, orthopnea or edema. No chest discomfort at rest or with activity. No heart palpitations, lightheadedness, presyncope, syncope, falls. Taking all meds as directed. Says he met with the surgeon when he was in the hospital for the catheterization procedure. He has not heard anything from their office yet. His and friend are present. Friend assists with Thai interpretation at their request. Permit signed. [facility] Medical History Cardiomyopathy Dyspnea Asthma-COPD overlap syndrome Hiatal hernia Diabetes ESRD (end stage renal disease) Chronic restrictive lung disease GERD (gastroesophageal reflux disease) Chronic cough Social History Patient Tobacco Use Status: Never used Tobacco Review of Systems Const All systems reviewed & are unremarkable except as noted in HPI and below ENT Denies dizziness Card Denies chest pain, Denies chest pain at rest, Denies chest pain with activity, Denies rapid heart rate, Denies pedal edema, Denies edema, Denies leg edema, Denies lightheadedness, Denies palpitations, Reports dyspnea, Reports dyspnea on exertion and Denies orthopnea Resp Denies cough, Reports dyspnea and Reports dyspnea on exertion GI Denies hematochezia and Denies change in stool character Musc Denies abnormal gait, Denies limited range of motion, Denies muscle cramps, Denies muscle weakness, Denies numbness, Denies radiating pain into limb, Denies stiffness and Denies tingling Neuro Denies abnormal gait, Denies dizziness, Denies numbness and Denies tingling Endo Denies palpitations Physical Exam Vital Signs: Last Vital Signs Pulse 71 08/28/23 14:02 BP 124/72 08/28/23 14:02 BMI result Body Mass Index 25.8 Const General: cooperative, healthy appearing, comfortable and no acute distress Orientation/consciousness: patient oriented x3 Neck Neck: Yes normal visual inspection and Yes no JVD Resp Effort & Inspection: normal respiratory effort Auscultation: clear to auscultation bilaterally, no rales, no rhonchi and no wheezes Cardio Jugular venous distension: no JVD Rate: regular rate Rhythm: regular rhythm Heart sounds: S1 normal heart sound present, S2 normal heart sound present, no murmurs and no rubs Neuro General: patient oriented x3 Extrem Other: right radial cath site well healed, easily palpable radial pulse, right hand assessment normal General: Yes normal to inspection Psych Appearance: grossly normal Mental Status: mental status grossly normal Speech and movement: Normal speech and movement present Assessment & Plan Assessment & Plan (1) Cardiomyopathy: Code(s): I42.9 - Cardiomyopathy, unspecified Category: Medical Plan: Cardiac evaluation for symptom of shortness of breath with activity. He underwent an echocardiogram on 06/23/2023 showing EF 25-30%, moderate LVH, moderately dilated left atrium, early mild , mildly dilated ascending aorta. He has cardiac risk factors of hypertension, hyperlipidemia, diabetes, end-stage renal disease. He then underwent cardiac catheterization on 08/10/2023 showing significant two-vessel CAD. He was referred to Cardiac surgery and states that he did speak with Dr. Ma at [facility] following cardiac catheterization. He has not had an office visit yet and he is still waiting to hear from the office regarding testing. He continues to have the symptom of shortness of breath with activity. He denies any chest discomfort. He does not appear in heart failure on examination. Will have him continue on current med management including aspirin, atorvastatin with ideal LDL goal less than 70, carvedilol. He has not on Beni or Arb due to his end-stage renal disease. Blood pressure today 124/72. At this time will hold off on the addition of hydralazine and Isordil. He hopes to pursue cardiac surgery in the near future. I will reach out to the cardiac surgeon office to ensure that his referral has gone through. Signs and symptoms of angina and heart failure reviewed. Emergency care if needed for symptoms. Cardiology office visit 3 months, sooner if needed. Anticipate that this will be post cardiac surgery. (2) CAD (coronary artery disease): Code(s): I25.10 - Atherosclerotic heart disease of [place] coronary artery without angina pectoris Category: Medical Plan: As above (3) S/P cardiac cath: Comment: Cardiac catheterization 08/10/2023 showing left main normal, lad mid 70% stenosis, 1st diagonal 90% stenosis, left circumflex minimal irregularities, RCA mid 70% stenosis Code(s): Z98.890 - Other specified postprocedural states Category: Surgical Plan: Right radial catheterization site well healed (4) Dyspnea: Code(s): R06.00 - Dyspnea, unspecified Category: Medical Plan: As above (5) Asthma-COPD overlap syndrome: Code(s): J44.89 - Other specified chronic obstructive pulmonary disease Category: Medical Plan: As above Plan Time spent on chart review, documentation, interview and assessment Coding Level of Care Code Est Pt Level 4 (01100) Diagnoses Cardiomyopathy I42.9 CAD (coronary artery disease) I25.10 S/P cardiac cath Z98.890 Dyspnea R06.00 Asthma-COPD overlap syndrome J44.89 Time Spent (min) 36
[2023-08-28 14:02] VITALS: BP 124/72; PULSE 71; BMI 25.8
== END 2023-08-28 14:35 | disposition home or self-care (01) ==
PROVIDERS: PCP Internal Medicine Geriatric Medicine; Visit Provider Nurse Practitioner Family
DX: I42.9 Cardiomyopathy, unspecified (principal); I25.10 Atherosclerotic heart disease of native coronary artery without angina pectoris; Z98.890 Other specified postprocedural states; R06.00 Dyspnea, unspecified; J44.89 Other specified chronic obstructive pulmonary disease
CPT/HCPCS: 99214

== ENCOUNTER → 2023-08-28 13:36 | Outpatient (BNVA) | payer MEDICARE, MEDICAID, SELFPAY | PROVIDERS: PCP Internal Medicine Geriatric Medicine; Visit Provider Nurse Practitioner Family | DX: I42.9 Cardiomyopathy, unspecified (principal); I25.10 Atherosclerotic heart disease of native coronary artery without angina pectoris; R06.00 Dyspnea, unspecified; J44.89 Other specified chronic obstructive pulmonary disease; Z98.890 Other specified postprocedural states | CPT/HCPCS: 99212 ==

== ENCOUNTER 2023-09-06 13:03 | Outpatient (REF) | payer MEDICARE, MEDICAID, SELFPAY ==
--- NOTE | ~2023-09-06 | US_ITS ---
EXAMINATION: US EXTRACRANIAL CAROTID DUPLEX, BILATERAL CLINICAL INFORMATION: Preoperative coronary artery disease COMPARISON: None available. TECHNIQUE: Real-time ultrasound and Doppler techniques (integrating B-mode 2-D vascular images, Doppler spectral analysis and color-flow Doppler imaging) were utilized to interrogate the extracranial carotid arteries, the vertebral arteries and proximal subclavian arteries bilaterally. The degree of stenosis is determined by criteria similar to NASCET. FINDINGS: Right Side: 1. There is mild atherosclerotic plaque seen in the bifurcation/proximal ICA region. 2. The common carotid artery PSV proximally is 77 cm/s and distally 68 cm/s. 3. The proximal internal carotid artery velocities are 86 cm/s systolic and 14 cm/s diastolic. 4. The proximal external carotid artery PSV is 152 cm/s. 5. The vertebral artery shows antegrade flow. 6. The subclavian artery waveforms are normal. Left Side: 1. There is mild atherosclerotic plaque seen in the bifurcation/proximal ICA region. 2. The common carotid artery PSV proximally is 79 cm/s and distally 90 cm/s. 3. The proximal internal carotid artery velocities are 72 cm/s systolic and 13 cm/s diastolic. 4. The proximal external carotid artery PSV is 123 cm/s. 5. The vertebral artery shows antegrade flow. 6. The subclavian artery waveforms are normal. US/US carotid duplex BI IMPRESSION: 1. RIGHT: Minimal, non-hemodynamically significant stenosis of the proximal right internal carotid artery corresponding to a 0-49% stenosis by velocity criteria. 2. LEFT: Minimal, non-hemodynamically significant stenosis of the proximal left internal carotid artery corresponding to a 0-49% stenosis by velocity criteria.
== END 2023-09-06 13:04 | disposition home or self-care (01) ==
LOC: HO.US 13:03
PROVIDERS: PCP Internal Medicine Geriatric Medicine; Visit Provider Thoracic Surgery (Cardiothoracic Vascular Surgery)
DX: Z01.810 Encounter for preprocedural cardiovascular examination (principal)
CPT/HCPCS: 93880

== ENCOUNTER → 2023-11-24 08:10 | Outpatient (REF) | payer MEDICARE, MEDICAID, SELFPAY ==
--- NOTE | 2023-11-24 08:13 | CA_ITS ---
Transthoracic Echocardiogram Patient (Last, First, Middle): David Chavez, Gender: Male Date of : 1940 Age: 83 Procedure Date: 11/24/2023 Procedure Type: Transthoracic Echocardiogram Location: OP Height: 170.18 cm Weight: 68.04 kg BSA: 1.79 m2 Heart Rate: bpm BP: 122 / 80 mmHg Resource Specialist: Referring MD: Erickson Muir MD Symptoms: Z98.890 - Other specified postprocedural states S/P CABG X4 Study Quality: Adequate ECG Rhythm: Sinus Conclusions: - The left ventricular systolic function is moderately decreased. The calculated ejection fraction is 40% by biplane method. - The basal inferior segment is akinetic. - There is moderate calcification of the aortic valve. Findings Left Ventricle Normal left ventricular cavity size. There is mildly increased left ventricular wall thickness. The left ventricular systolic function is moderately decreased. The calculated ejection fraction is 40% by biplane method. There is moderate global hypokinesis. Evidence suggests grade I (mild) diastolic dysfunction. Wall Motion Rest Echo Findings The basal inferior segment is akinetic. Right Ventricle Mildly increased right ventricular cavity size. There is moderately decreased right ventricular systolic function. Atria The left atrium is moderately dilated. The right atrium is mildly dilated. Aortic Valve There is moderate calcification of the aortic valve. There is no aortic valve stenosis. There is trace (trivial) aortic valve regurgitation. Mitral Valve There is mild mitral annular calcification. There is mild mitral valve regurgitation. There is no mitral valve stenosis. Pulmonic Valve The pulmonic valve is likely normal. Tricuspid Valve Normal tricuspid valve structure. There is trace tricuspid valve regurgitation. There is no evidence of pulmonary hypertension. Great Vessels The asc aorta is normal in size. Venous The inferior vena cava is normal in size and collapses greater than 50% with inspiration. Pericardium/Pleural There is no evidence of pericardial effusion. Prior Study Comparison Changes noted compared to prior study dated: 06/23/2023. Improved LVEF. Basal inferior wall previously appears akinetic. Measurements 2D Linear Measurements IVSd: 1.10 0.6-0.9/0.6-1.0 cm LVIDd: 5.11 3.9-5.3/4.2-5.9 cm LVIDd Index: 2.85 2.4-3.2/2.2-3.1 cm/m2 LVIDs: 3.84 2.0-3.6 cm LVPWd: 1.06 0.7-1.1 cm Ao Root: 3.20 2.1-3.5 cm LA Diam: 4.30 2.7-3.8/3.0-4.0 cm LAIDs Index: 2.40 1.5-2.3 cm/m2 LV Mass: 260.84 67-162/88-224 g LV Mass Index: 145.72 43-95/49-115 g/m2 LVOT Diam: 2.10 3.0+(-)1.3 cm 2D Systolic Function EF 4C: 40.50 >55% EF 2C: 42.70 >55% EF BiP: 39.50 >55% Mitral Valve MV VTI: 0.28 MV Pk Manuel: 1.08 MV Mn Manuel: 0.59 MV Pk Grad: 5.00 MV Mn Grad: 2.00 MV Pk E: 0.64 MV PK A: 0.90 MV Decel Time: 160.00 E/A: 0.70 E'Lateral: 5.87 E'Medial: 4.90 E/E' Med: 13.10 E/E' Lat: 11.00 PHT: 47.00 MVA PHT: 4.68 MVA Continuity: 2.06 Decel [place]: 4.01 Aortic Valve AoV Pk Manuel: 1.71 AoV Mn Manuel: 1.09 AoV VTI: 0.40 AoV Pk Grad: 12.00 Aov Mn Grad: 6.00 ZHANG Cont.VTI: 1.46 LVOT LVOT Pk Manuel: 0.77 LVOT Mn Manuel: 0.49 LVOT VTI: 0.17 LVOT Pk Grad: 2.00 LVOT Mn Grad: 1.00 LVOT Diam: 2.10 LVOT Area: 3.46 Diastolic Function MV Pk E: 0.64 MV Pk A: 0.90 E/A: 0.70 E'Medial: 4.90 E/E' Med: 13.10 E' Laterial: 5.87 E/E' Lat: 11.00 Right Ventricle TAPSE (mm): 10.00 TVS' Manuel: 5.00 Tricuspid Valve TR Pk Manuel: 1.90 TR Pk Grad: 14.00 RA Press: 3.00 RVSP: 17.00 Great Vessels Aorta Ao Root-2D: 3.20 2.0-3.7 cm Ao Asc: 3.30 2.1-3.4 cm Pulmonary Valve PV Pk Manuel: 0.95 Peak PV Grad: 4.00 Updated in Other Vendor System with Status of Final Luis Balderas MD electronically signed on 11/25/2023 3:06:58 PM with status of Final
== END ==
LOC: HO.CARD 08:10
PROVIDERS: PCP Internal Medicine Geriatric Medicine; Visit Provider Internal Medicine Cardiovascular Disease
DX: I42.9 Cardiomyopathy, unspecified (principal); I25.10 Atherosclerotic heart disease of native coronary artery without angina pectoris; R06.00 Dyspnea, unspecified; Z98.890 Other specified postprocedural states
CPT/HCPCS: 93306

== ENCOUNTER → 2023-11-24 08:13 | Outpatient (BNV) | payer MEDICARE, MEDICAID, SELFPAY | PROVIDERS: PCP Internal Medicine Geriatric Medicine; Visit Provider Internal Medicine | DX: I34.0 Nonrheumatic mitral (valve) insufficiency (principal); I34.81 Nonrheumatic mitral (valve) annulus calcification; I35.8 Other nonrheumatic aortic valve disorders; I51.89 Other ill-defined heart diseases | CPT/HCPCS: 93306 ==

== ENCOUNTER 2023-11-27 12:00 | Outpatient (AMB) | payer MEDICARE, MEDICAID, SELFPAY ==
--- NOTE | 2023-11-27 12:36 | A.OFFVIS_ITS ---
Vital Signs 11/27/23 12:37 Height 5 ft 7 in Weight 156 lb 8.451 oz BMI 24.5 BP 140/70 H Blood Pressure Location Lt brachial Position Sitting Pulse 63 Intake Visit Reasons: 3 mth f/up Intake Note: 3 month follow-up feeling good Behavioral Health Therapist Required: No Non Profit Job Titles: Non Profit Job Titles Present Accompanied by: Spouse Allergies No Known Allergies Allergy (Verified 08/28/23 14:05) Medication List - Last Reconciled 11/27/23 by Erickson Muir MD acetaminophen (Tylenol) 325 mg PO QID PRN albuterol sulfate 90 mcg/actuation 0 mcg inhalation aspirin 81 mg PO DAILY atorvastatin 20 mg PO DAILY calcitriol 1.5 mcg PO BID carvedilol 25 mg PO BID fluticasone furoate-vilanterol 100-25 mcg/dose (Breo Ellipta) 1 ea inhalation DAILY ketotifen fumarate 0.025%(0.035%) ([place]away) 0 drps ophthalmic (eye) mirtazapine 15 mg PO BEDTIME omeprazole 40 mg PO DAILY HPI Comments Details: David comes for follow-up. He underwent three-vessel coronary artery bypass grafting in September. Currently participate in phase 2 cardiac rehabilitation. He said he has been doing extremely well. His symptoms of exertional shortness of breath has significantly improved. Clinically has no signs of heart failure. Most recent echocardiogram shows improvement in LV ejection fraction to 40%. He said he feels more energy. However while doing cardiac rehab with involving his arms he gets fatigue and tiredness in his left arm where his AV fistula is. Denies any orthopnea, PND, leg edema. Blood pressure is slightly elevated on today's exam. Does not recall blood pressure during dialysis session. No recent lipid panel. No palpitations, lightheadedness, syncope. [facility] Medical History Cardiomyopathy Dyspnea Asthma-COPD overlap syndrome Hiatal hernia Diabetes ESRD (end stage renal disease) Chronic restrictive lung disease GERD (gastroesophageal reflux disease) Chronic cough Social History Patient Tobacco Use Status: Never used Tobacco Review of Systems Const Denies chills, Denies fatigue, Denies fever(s), Denies frequent falls, Denies weakness, Denies weight gain and Denies weight loss ENT Denies dizziness Card Denies chest pain, Denies leg edema, Denies lightheadedness, Denies palpitations, Denies dyspnea, Denies dyspnea on exertion, Denies orthopnea and Denies other (loss of consciousness) Resp Denies cough, Denies dyspnea and Denies dyspnea on exertion GI Denies hematochezia and Denies change in stool character Musc Denies abnormal gait, Denies muscle weakness, Denies numbness, Denies radiating pain into limb and Denies tingling Neuro Denies abnormal gait, Denies dizziness, Denies frequent falls, Denies numbness, Denies tingling and Denies weakness Endo Denies fatigue and Denies palpitations Physical Exam Vital Signs: Last Vital Signs Pulse 63 11/27/23 12:37 BP 140/70 H 11/27/23 12:37 BMI result Body Mass Index 24.5 Const General: cooperative, healthy appearing, comfortable and no acute distress Orientation/consciousness: patient oriented x3 Neck Neck: Yes normal visual inspection and Yes no JVD Resp Effort & Inspection: normal respiratory effort Auscultation: clear to auscultation bilaterally, no rales, no rhonchi and no wheezes Cardio Jugular venous distension: no JVD Rate: regular rate Rhythm: regular rhythm Heart sounds: S1 normal heart sound present, S2 normal heart sound present, Murmur heart sound present continuous (Probably related to AV fistula) at the right sternal border and systolic early and no rubs Neuro General: patient oriented x3 Extrem Other: right radial cath site well healed, easily palpable radial pulse, right hand assessment normal General: Yes normal to inspection Psych Appearance: grossly normal Mental Status: mental status grossly normal Speech and movement: Normal speech and movement present Assessment & Plan Assessment & Plan (1) CAD (coronary artery disease): Code(s): I25.10 - Atherosclerotic heart disease of [place] coronary artery without angina pectoris Category: Medical Plan: CAD with three-vessel coronary artery bypass grafting with significantly improved symptoms since then with most of his symptoms out sounding probably related to coronary disease with symptoms of exertional shortness of breath is anginal equivalent. Clinically doing well. Advised to complete phase 2 cardiac rehabilitation. Continue aspirin for life. Continue statin therapy. Target goal LDL less than 70 mg/dL. Advised lipid panel in near future. (2) Cardiomyopathy: Code(s): I42.9 - Cardiomyopathy, unspecified Category: Medical Plan: Ischemic cardiomyopathy without any overt signs of congestive heart failure. Status post surgical revascularization with improvement in his LV ejection fraction since then. Good prognosis with this was discussed. Continue current neurohormonal modulation with carvedilol. Will add valsartan 20 mg b.i.d. to his regimen. Advised to monitor blood pressure at home and at dialysis sensitive. Advise repeat BNP in 1 weeks time. Will follow up in the clinic in 6 months time, sooner p.r.n.. Thank you for allowing me to partake in his care Orders: Orders Lipid Panel Today I25.10 - Atherosclerotic heart disease of [place] coronary artery without angina pectoris CA Echo Limited 6 Months I42.9 - Cardiomyopathy, unspecified Basic Metabolic Panel Today I25.10 - Atherosclerotic heart disease of [place] coronary artery without angina pectoris Medications: New valsartan 20 mg (1/2 x 40 mg) PO BID 60 tabs 2RF I25.10 - Atherosclerotic heart disease of [place] coronary artery without angina pectoris Coding Level of Care Code Est Pt Level 4 (08209) Diagnoses CAD (coronary artery disease) I25.10 Cardiomyopathy I42.9
[2023-11-27 12:37] VITALS: BP 140/70; PULSE 63; BMI 24.5
== END 2023-11-27 12:55 | disposition home or self-care (01) ==
PROVIDERS: PCP Internal Medicine Geriatric Medicine; Visit Provider Internal Medicine Cardiovascular Disease
DX: I25.10 Atherosclerotic heart disease of native coronary artery without angina pectoris (principal); I42.9 Cardiomyopathy, unspecified
CPT/HCPCS: 99214

== ENCOUNTER → 2023-11-27 12:00 | Outpatient (BNVA) | payer MEDICARE, MEDICAID, SELFPAY | PROVIDERS: PCP Internal Medicine Geriatric Medicine; Visit Provider Internal Medicine Cardiovascular Disease | DX: I25.10 Atherosclerotic heart disease of native coronary artery without angina pectoris (principal); I42.9 Cardiomyopathy, unspecified | CPT/HCPCS: 99212 ==

== ENCOUNTER → 2024-05-22 08:56 | Outpatient (REF) | payer MEDICARE, MEDICAID, SELFPAY ==
--- NOTE | 2024-05-22 08:59 | CA_ITS ---
Transthoracic Echocardiogram Patient (Last, First, Middle): David Chavez, Gender: Male Date of : 1940 Age: 84 Procedure Date: 05/22/2024 Procedure Type: Transthoracic Echocardiogram Location: OP Height: 167.64 cm Weight: 65.77 kg BSA: 1.74 m2 Heart Rate: bpm BP: 180 / 90 mmHg Amortization Schedule Clerk: TO Referring MD: Erickson Muir MD Cullet Washer: Erickson Muir MD Symptoms: I42.9 - Cardiomyopathy, unspecified Study Quality: Adequate w contrast ECG Rhythm: Sinus Conclusions: - [id number] reduction LV ejection fraction at 40-45% with elevated filling pressures Findings Procedure Information Contrast agent, definity, is being given per protocol without apparent complications. Left Ventricle Normal left ventricular cavity size. There is normal left ventricular wall thickness. The left ventricular systolic function is mild to moderately decreased. The visually estimated ejection fraction is between 40-45%. Spectral Doppler is indicative of an impaired relaxation filling pattern. Elevated filling pressures. E/E prime ratio is >15, consistent with elevated filling pressures. Wall Motion Rest Echo Findings The mid inferior segment is hypokinetic. The basal inferior segment is akinetic. Prior Study Comparison No significant change compared to prior study dated: 11/24/2023. Measurements 2D Linear Measurements IVSd: 1.08 0.6-0.9/0.6-1.0 cm LVIDd: 5.55 3.9-5.3/4.2-5.9 cm LVIDd Index: 3.19 2.4-3.2/2.2-3.1 cm/m2 LVIDs: 4.66 2.0-3.6 cm LVPWd: 0.97 0.7-1.1 cm LA Diam: 4.50 2.7-3.8/3.0-4.0 cm LAIDs Index: 2.59 1.5-2.3 cm/m2 LV Mass: 278.92 67-162/88-224 g LV Mass Index: 160.30 43-95/49-115 g/m2 LVOT Diam: 2.20 3.0+(-)1.3 cm 2D Systolic Function EF 4C: 37.00 >55% EF 2C: 48.20 >55% EF BiP: 41.00 >55% Mitral Valve MV Pk E: 0.96 MV PK A: 1.04 MV Decel Time: 135.00 E/A: 0.90 E'Lateral: 6.42 E'Medial: 2.50 E/E' Med: 38.60 E/E' Lat: 15.00 PHT: 39.00 MVA PHT: 5.64 Decel [place]: 7.16 LVOT LVOT Pk Manuel: 0.88 LVOT Mn Manuel: 0.60 LVOT VTI: 0.17 LVOT Pk Grad: 3.00 LVOT Mn Grad: 2.00 LVOT Diam: 2.20 LVOT Area: 3.80 Diastolic Function MV Pk E: 0.96 MV Pk A: 1.04 E/A: 0.90 E'Medial: 2.50 E/E' Med: 38.60 E' Laterial: 6.42 E/E' Lat: 15.00 Tricuspid Valve RA Press: 3.00 Updated in Other Vendor System with Status of Final Erickson Muir MD electronically signed on 05/23/2024 4:25:36 PM with status of Final
--- OUTSIDE RECORDS SUMMARY | 2024-05-22 09:45 | XMS_ITS | Clinical Summary ---
Author Organization [employer] Address [address] [place] [address] [address] [place] [address] Care Team Providers Care Power Marketer Name Role Phone Name, Abdiel COX Primary Care Provider [phone] Allergies No known active allergies Medications Breo Ellipta 100-25 MCG/ACT aerosol powder INHALE 1 PUFF BY MOUTH DAILY 3 Active albuterol 108 (90 Base) MCG/ACT inhaler Inhale 2 puffs. 9 Active Auryxia 1 GM 210 MG(Fe) tablet TAKE 3 TABLETS BY MOUTH THREE TIMES A DAY WITH MEALS. SWALLOW WHOLE, DO NOT CHEW OR CRUSH MEDICATION 3 Active calcitriol (Rocaltrol) 0.5 MCG capsule Take 3 capsules by mouth every 12 (twelve) hours. 0 Active glucose blood (FREESTYLE LITE) test strip USE TO TEST BLOOD SUGAR ONCE A DAY 100 each 11 3 Active acetaminophen (Tylenol) 325 MG tablet Take 3 tablets by mouth every 6 (six) hours if needed. Active lidocaine (Xylocaine) 5 % ointment Apply topically if needed for mild pain or moderate pain. 50 g 11 4 06/23/19 25 Active tamsulosin (Flomax) 0.4 MG 24 hr capsuleIndicatio ns:Benign prostatic hyperplasia, unspecified whether lower urinary tract symptoms present TAKE 1 CAPSULE BY MOUTH EVERY DAY 1/2 HOUR FOLLOWING THE SAME MEAL EACH DAY 90 capsule 1 4 Active atorvastatin (Lipitor) 40 MG tablet Take 1 tablet by mouth Once per day. 4 Active pantoprazole (ProtoNix) 40 MG EC tablet Take 40 mg by mouth Once per day. 4 Active Docusate Sodium (COLACE PO) Take 2 capsules by mouth Once per day. 4 Active carvedilol (Coreg) 6.25 MG tablet Take 1 tablet by mouth with breakfast and with evening meal. 4 Active sennosides (Senokot) 8.6 MG tablet Take 17.2 mg by mouth Once per day. 4 Active Wound Cleansers (Vashe Cleansing) solution Apply topically Use as directed. Active Continuous Glucose Case Therapist (FreeStyle Franklyn 2 Stillmore) deviceIndication s:Type 2 diabetes mellitus with chronic kidney disease on chronic dialysis, with long-term current use of insulin (CMS/HCC) Scan sensor every 8 hours 1 each 4 Active Continuous Glucose Sensor (FreeStyle Franklyn 2 Sensor) miscIndications: Type 2 diabetes mellitus with chronic kidney disease on chronic dialysis, with long-term current use of insulin (CMS/HCC) Apply 1 sensor every 14 days 2 each 3 4 Active glucose blood (FreeStyle Precision Elia Test) test stripIndications :Type 2 diabetes mellitus with chronic kidney disease on chronic dialysis, with long-term current use of insulin (CMS/HCC) Use to test blood sugar 3 times daily 100 each 12 4 11/01/19 25 Active FREESTYLE LITE test stripIndications :Type 2 diabetes mellitus with chronic kidney disease on chronic dialysis, with long-term current use of insulin (CMS/HCC) Use to test blood sugar 3 times daily 100 each 12 4 11/01/19 25 Active Lancets miscIndications: Type 2 diabetes mellitus with chronic kidney disease on chronic dialysis, with long-term current use of insulin (CMS/HCC) Use to test blood sugar 3 times daily 100 each 4 Active Alcohol Swabs 70 % padsIndications: Type 2 diabetes mellitus with chronic kidney disease on chronic dialysis, with long-term current use of insulin (CMS/HCC) Use to test blood sugar 3 times daily 100 each 4 Active Blood Glucose Monitoring Suppl (FreeStyle Isle Lite) w/Device kitIndications:T ype 2 diabetes mellitus with chronic kidney disease on chronic dialysis, with long-term current use of insulin ([facility]) Use to test blood sugar 3 times daily 1 kit 4 Active Glucagon 1 MG/0.2ML solutionIndicati ons:Type 2 diabetes mellitus with chronic kidney disease on chronic dialysis, with long-term current use of insulin (CMS/[facility]) Inject 1 mg under the skin if needed (hypoglycemia). 1 mL 1 4 Active sevelamer carbonate (Renvela) 800 MG tablet 4 Active pen needle 32G x 4 mm miscIndications: Type 2 diabetes mellitus with chronic kidney disease on chronic dialysis, with long-term current use of insulin ([facility]) Use with insulin TID as needed 100 each 12 4 Active Insulin Aspart 100 UNIT/ML solution Inject 10 Units as directed with breakfast, with lunch, and with evening meal. For meals Call if < 100 or >370; 2 units under skin for sugar (BG) 120 - 169; 4 units if BG 170 - 219; 6 units if BG 220 - 269; 8 units if BG 270 - 319; 10 units if BG 320 - 369 10 mL 4 Active valsartan (Diovan) 40 MG tablet TAKE 1/2 TABLET ORALLY 2 TIMES A DAY 4 Active diphenhydrAMINE (BENADryl) 25 MG tablet Take 1 tablet (25 mg) by mouth if needed at bedtime for itching. 30 tablet 2 4 Active aspirin (Aspirin Low Dose) 81 MG EC tablet Take 1 tablet (81 mg) by mouth Once per day. 90 tablet 1 4 Active Active Problems Problem Noted Date Diagnosed Date Ischemic cardiomyopathy 01/10/2024 History of coronary artery bypass graft x 3 10/18 Assessment & Plan (11/01/2023 7:50 PM EDT): -appears to be recovering well. Weakness and decreased appetite most likely r/t chronic disease and recent surgery. Advised continued movement and physical activity as tolerated. 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 may also explain weakness. 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 05/13/2015 Malignant melanoma of skin of lower extremity Overview (11/14/2022): left bottom foot Stage 3 chronic kidney disease 05/13/2015 Benign essential hypertension 04/13/2015 Type 2 diabetes mellitus 04/13/2015 Assessment & Plan (11/01/2023 8:02 PM EDT): -POC glucose 159 mg/dL; POC HgbA1c 6.3% which may be falsely low given low hemoglobin -restart insulin lispro with sliding scale used during hospitalization and rehab -glucose meter order for monitoring while waiting for CGM -signs of hypoglycemia and management reviewed with both patient and -glucagon injection sent to pharmacy -order placed for CGM initiation -follow-up PCP 01/09 as scheduled Hypercholesterolemia 04/13/2015 Osteoarthritis of knee 04/13/2015 Encounters Date Type Department Care Team Description 05/22/2024 Refill [facility] [address] [place] [address] Name, MD Abdiel 05/21/2024 Telephone [facility] [address] [place] [address] Name, MD Abdiel Med Refill 03/21/2024 Telephone [facility] [address] [place], [place] [phone] Oracio Pacheco [place] Jan recalls from Last 3 Months Immunizations Name Administration Dates Next Due Influenza Quadrivalent Adjuvanted 12/14/2020 Influenza injectable quadriv alent IIV4 with preservative 01/01/2018 Influenza injectable quadriv alent preservative free 12/12/2018 Influenza, High Dose Seasona l, Preservative Free 12/21/2021,12/14/2017,11/30/2016,12/03 Influenza, IIV3, injectable 12/21/2021,0 12/14/2020,12/12/2018,01/01,12/14/2017,11/30/2016,12/04/2015 Pfizer Covid-19 Vaccine 12+ 01/10/2024 Pneumococcal Conjugate PCV 13 09/30/2016 Pneumococcal Polysaccharide PPSV23 11/15/2017 Tdap 02/02/2016 Zoster, Recombinant 12/14/2020 Social History Tobacco Use Types Packs/Day Years Used Date Smoking Tobacco: Never Tobacco Cessation:Counseling Given: Not Answered Alcohol Use Standard Drinks/Week Comments Never 0 (1 standard drink = 0.6 oz pur e alcohol) Depression Answer Date Recorded Patient Health Questionnaire-9 Score 0 07/06/2022 Housing Stability Answer Date Recorded What is your housing situation today? I have gilberto arizmendi 01/02/[address] you li ve. Do you have problems with any of the following? None of the above 01/02/2023 Food Insecurity Answer Date Recorded Within the past 12 months, y ou worried that your food would run out before you got money to buy more: Never True 01/02/2023 Within the past 12 months,th e food you bought just didn't last and you didn't have enough money to get more: Never True Transportation Answer Date Recorded In the past 12 months, has l ack of transportation kept you from medical appts, meetings, work or from getting things needed for daily living? No 01/02/2023 Utilities Answer Date Recorded In the past 12 months, has t he electric, gas, oil or water company threatened to shut off services in your home? No 01/02/2023 Depression Answer Date Recorded Patient Health Questionnaire-2 Score 0 07/06/2022 Sex and Gender Information Value Date Recorded Sex Assigned at Male 01/17/2022 10:29 AM EDT Legal Sex Male 10:29 AM EDT Gender Identity Choose not to disclose 10:29 AM EDT Sexual Orientation Choose not to disclose 2021 10:29 AM EDT Last Filed Vital Signs Vital Sign Reading Time Taken Comments Blood Pressure 152/89 01/10/2024 2:29 PM EDT Pulse 70 01/10/2024 2:20 PM EDT Temperature 37 ??C (98.6 ??F) 11/01/2023 9:03 AM EDT Respiratory Rate 14 01/10/2024 2:20 PM EDT Oxygen Saturation 98% 01/10/2024 2:20 PM EDT Inhaled Oxygen Concentration - - Weight 69.4 kg (153 lb) 01/10/2024 2:20 PM EDT Height 170.2 cm (5' 7 ) 01/10/2024 2:20 PM EDT Body Mass Index 23.96 01/10/2024 2:20 PM EDT Plan of Treatment Upcoming Encounters Date Type Department Care Team (Late st Contact Info) Description 05/28/2024 10:45 AM EDT Office Visit [facility] [address] [place] [id number] Name, MD Abdiel [address] [place] [phone] 07/12/2024 3:15 PM EDT Office Visit [facility] [address] [place] [address] Saulo Cerna MD [address] [place], [place] [phone] 07/24/2024 11:00 AM EDT Office Visit [facility] [address] [place], [place] [phone] Jaden, Andra, OD [address] [place], [place] [phone] Health Maintenance Due Date Last Done Comments Derm Melanoma Skin Check 1942 Alcohol/Substance Use Screening 1954 RSV Patients and Patients Aged 60 years or older (1 - 1-dose 75+ series) 2017 Zoster Vaccines (2 of 2) 02/08/2021 12/14/2020 Lipid Panel 03/03/2022 03/03/2021, 06/17/2020 Depression Screening 07/07/2023 07/06/2022, 07/07/19 23 SDOH Screening 07/30/2023 07/29/2022 Influenza Vaccine (#1) 2023 , 12/21/2021, 12/14/2020, Additional history exists Diabetes: Hemoglobin A1C 05/03/2024 024, 06/23/2023, 02/20/2023, Additional history exists Diabetes: Foot Exam 06/22/2024 06/23/2023, 06/23/2023, 06/23/2023, Additional history exists Eye Exam 12/19/2024 12/19/2022, 04/2022, 12/19/2022, Additional history exists Tobacco Screening 01/09/2025 01/10/2024 DTaP/Tdap/Td Vaccines (2 - Td or Tdap) 02/01/2026 02/02/2016 Pneumococcal Vaccine: 50+ Years Completed 11/15/2017, 09/30/2016 COVID-19 Vaccine Completed 01/10/2024, 09/2021, 09/04/2021, Additional history exists HIB Vaccines Aged Out No longer eligi ble based on patient's age to complete this topic HPV Vaccines Aged Out No longer eligi ble based on patient's age to complete this topic Hepatitis A Vaccines Aged Out No long er eligible based on patient's age to complete this topic Hepatitis B Vaccines Aged Out No long er eligible based on patient's age to complete this topic IPV Vaccines Aged Out No longer eligi ble based on patient's age to complete this topic Meningococcal Vaccine Aged Out No charan sosa eligible based on patient's age to complete this topic RSV under 20 months Aged Out No longe r eligible based on patient's age to complete this topic Rotavirus Vaccines Aged Out No longer eligible based on patient's age to complete this topic Procedures Procedure Name Priority Date/Time Associated Diagnosis Comments POCT GLYCATED HEMOGLOBIN, TOTAL Routine 11/01/2023 9:05 AM EDT Type 2 diabetes mellitus with chronic kidney disease on chronic dialysis, with long-term current use of insulin ([facility]) LIPID PANEL, STANDARD Routine 03/03/2021 8:39 AM EST from Last 3 Months or Most Recently Relevant to Health Maintenance Results * (ABNORMAL) POCT HGB A1C (11/01/2023 9:05 AM EDT) Hemoglobin A1C 6.3(A) 4.0 - 6.0 % QC Media Lot # [id number] Lot# Expiration Date [id number] Blood 11/01/2023 9:05 AM EDT Valery Mann BULK FILLER POINT OF CARE TEST ENTER/EDIT O RDERABLES Final Result * (ABNORMAL) LIPID PANEL, STANDARD (03/03/2021 8:39 AM EST) Chol/HDLC Ratio 5.6(H) <5.0 (calc) [facility] Cholesterol, Total 168 <200 mg/dL [facility] HDL Cholesterol 30(L) > OR = 40 mg/dL [facility] LDL Cholesterol 97 mg/dL (calc) [facility] Comment: Reference range: <100 ?? Desirable range <100 mg/dL for primary prevention; ?? <70 mg/dL for patients with CHD or diabetic patients ?? with > or = 2 CHD risk factors. ?? LDL-C is now calculated using the Jose-Corcoran ?? calculation, which is a validated novel method providing ?? better accuracy than the Friedewald equation in the ?? estimation of LDL-C. ?? Jose TREVINO et al. JAZMIN. 2013;310(19): 4089-8222 ?? (http://education.DiViNetworks/faq/KGY227) Non-HDL Cholesterol 138(H) <130 mg/dL (calc) [facility] Comment: For patients with diabetes plus 1 major ASCVD risk ?? factor, treating to a non-HDL-C goal of <100 mg/dL ?? (LDL-C of <70 mg/dL) is considered a therapeutic ?? option. Triglycerides 311(H) <150 mg/dL [facility] Comment: ?? If a non-fasting specimen was collected, consider repeat triglyceride testing on a fasting specimen if clinically indicated. ?? Martina et al. J. of Clin. Lipidol. 2015;9:129-169. ?? 03/03/2021 8:39 AM EST us Abdielnishi August MD LAB BLOOD ORDERABLES Final Resul t [facility] [address] from Last 3 Months or Most Recently Relevant to Health Maintenance Insurance [address] [place] [address] STANDARD MEDICARE Care Teams Power Marketer Relationship Specialty Start Date End Date Name, MD Abdiel [address] [place] [id number] PCP - General Family Medicine 03/20/18
--- OUTSIDE RECORDS SUMMARY | 2024-05-22 09:45 | XMS_ITS | Encounter Summary ---
Author Organization [facility], Address [address] [place] [address] Phone Care Team Providers Care Scanning Coordinator Name Role Phone Name, Abdiel COX Primary Care Provider [phone] Reason for Visit * Reason Comments Med Refill Encounter Details Date Type Department Care Team (Late Contact Info) Description 07/23/2020 Refill [facility] [address] [place] [phone] Vinay Santiago MD [address] [place] [address] [place] [phone] Social History Tobacco Use Types Packs/Day Years Used Date Smoking Tobacco: Never Alcohol Use Standard Drinks/Week Comments No 0 (1 standard drink = 0.6 oz pure alcohol) Alcoholic Drinks/day: Occasional social drink Sex and Gender Information Value Date Recorded Sex Assigned at Not on file Legal Sex Male 4:34 PM EST Gender Identity Not on file Sexual Orientation Not on file COVID-19 Exposure Response Date Recorded In the last month, have you been in contact with someone who was confirmed or suspected to have Coronavirus / COVID-19? No / Unsure 07/24/2020 9:31 AM EDT documented as of this encounter Plan of Treatment Upcoming Encounters Date Type Department Care Team (Late Contact Info) Description 08/09/2024 10:00 AM EDT Procedure visit [facility], - [facility] [address] [place] [address] [place] [phone] documented as of this encounter Visit Diagnoses Not on filedocumented in this encounter Care Teams Scanning Coordinator Relationship Specialty Start Date End Date Name, MD Abdiel [address] [place] [id number] PCP - General 01/22/19 documented as of this encounter
--- OUTSIDE RECORDS SUMMARY | 2024-05-22 09:45 | XMS_ITS | Encounter Summary ---
Author Organization [facility], Address [address] [place] [address] Phone Care Team Providers Care Business Analytics Specialist Name Role Phone Name, Abdiel COX Primary Care Provider [phone] Encounter Details Date Type Department Care Team (Late st Contact Info) Description 05/14/2024 Treatment [facility], [address] [place] [phone] Andrew Rodriguez MD [address] [place] [address] [place] [address] Social History Tobacco Use Types Packs/Day Years Used Date Smoking Tobacco: Never Smokeless Tobacco: Never Alcohol Use Standard Drinks/Week Comments Not Currently 0 (1 standard drink = 0.6 oz pure alcohol) Alcoholic Drinks/day: Occasional social drink Sex and Gender Information Value Date Recorded Sex Assigned at Not on file Legal Sex Male 4:34 PM EST Gender Identity Not on file Sexual Orientation Not on file documented as of this encounter Miscellaneous Notes * Dialysis Note - Andrew Rodriguez MD - 05/14/2024 12:00 AM EST Patient: David De La Rosa : 1940 [facility], [place]: [facility] Note Type: Dialysis Rounds-Basic Service Date: 05/14/2024 This patient was personally seen for a basic visit as part of routine monthly dialysis care for end stage renal disease. Attending Pasteurizing Supervisor: ANDREW RODRIGUEZ Dialysis Location: [facility] DIALYSIS Schedule: Shift: 2 HOME MEDICATIONS Current [facility] Outpatient Medications acetaminophen 325 mg capsule Take 2 capsule by mouth every six hours. [PRN] aspirin 81 mg tablet,delayed release (DR/EC) Take 1 tablet by mouth once a day. [.] atorvastatin 40 mg tablet Take 1 tablet by mouth once a day as directed. Breo Ellipta 100-25 mcg/dose blister with device Inhale 1 puff as directed once a day. carvedilol 6.25 mg tablet Take 1 tablet by mouth twice a day. docusate sodium 100 mg capsule Take 2 capsule by mouth once a day. Ferric Citrate 210 mg tablet Take 3 Tablet By Mouth Every 24 hours With Meals. [Take 2 tab with meals and 1 tab with a snack] Ferric Citrate 210 mg tablet Take 3 Tablet By Mouth Three times a day With Meals. insulin lispro 100 unit/mL solution [sliding scale] lactulose 10 gram/15 mL (15 mL) solution Take 20 gram by mouth as directed. lidocaine-transparent dressing 5 %- 6 cm X 7 cm kit Apply 1 kit to skin once a day. mirtazapine 15 mg tablet Take 1 tablet by mouth at bedtime. omeprazole magnesium 20 mg capsule,delayed release(DR/EC) Take 2 capsule by mouth once a day. polyethylene glycol 3350 17 gram/dose powder Take once a day. [take 1 packet 17 gms] senna 8.6 mg tablet Take 2 tablet by mouth once a day. tamsulosin 0.4 mg capsule Take 1 capsule by mouth once a day. topical emollients Apply twice a day. valsartan 40 mg tablet Take 1/2 tablet by mouth twice a day. Current [facility] Allergies Allergen: No Known Allergies Allergen: No Known Allergies Allergen: No Known Drug Allergies Allergen: No Known Drug Allergies Allergen: No Known Food Allergies Allergen: No Known Food Allergies DIALYSIS PRESCRIPTION Treatment Data Treatment Date: 05/14/2024 started at: 10:27 AM Dialysate / Machine Temp (prescribed): 36.0*C Dialysate / Machine Temp (actual): 35.9*C BFR (prescribed): 450 BFR (average delivered): 450 DFR (prescribed): Manual 500 DFR (average delivered): 500 Prescribed Time: 04:00 Actual Time: 04:04 EDW (kg): 67.2 Dialyzer: 160NRe Optiflux Dialysate: 2.0 K, 2.5 Ca, 1.0 Mg, 100 Dextrose (G2251) Sodium: 138 Bicarb: 33 Pre Dialysis Vitals Pre BP Sit: 191/86 Pre Wt (kg): 70.6 EDW Deviation (kg): 3.4 Temp: 97.7*F Post Dialysis Vitals Post BP Sit: 181/87 Post Wt (kg): 67.9 TREATMENT MEDICATIONS ORDERS Heparin Sodium (Porcine) 1,000 Units/mL Systemic 3000 units IVP Every Treatment 03/14/2024 - 03/13/2025 Mircera 30 mcg IVP Every 2 weeks During Dialysis 05/07/2024 - 05/06/2025 BP AND FLUID ASSESSMENT Post BP Sit 181/87 - 05/14/2024 151/69 - 05/11/2024 143/74 - 05/09/2024 Post Wt (kg) 67.9 - 05/14/2024 67.2 - 05/11/2024 67.5 - 05/09/2024 EDW (kg) 67.2 - 05/14/2024 68.5 - 05/11/2024 68.5 - 05/09/2024 Deviation (kg) 0.7 - 05/14/2024 -1.3 - 05/11/2024 -1.0 - 05/09/2024 ADEQUACY ASSESSMENT Missed Treatments 0 - Last 30 days 0 - Last 60 days spKt/V (Daugirdas II) 1.83 (04/25/24) 1.83 (03/21/24) 2.01 (02/22/24) eKdrt/V 1.62 (04/25/24) 1.61 (03/21/24) 1.79 (02/22/24) % Urea Reduction 78 (04/25/24) 78 (03/21/24) 81 (02/22/24) BUN 68 (04/25/24) 58 (03/21/24) 53 (02/22/24) BUN Post Dialysis 15 (04/25/24) 13 (03/21/24) 10 (02/22/24) Creatinine 8.17 (05/09/24) 10.99 (04/04/24) 10.07 (03/07/24) Bicarbonate (CO2) 25 (05/09/24) 23 (04/04/24) 25 (03/07/24) Sodium 137 (05/09/24) 138 (04/04/24) 137 (03/07/24) ACCESS ASSESSMENT AVFistula Unknown Left Upper Arm Active (In Use) - 03/06/2019 Placed - 01/21/2019 Access Flow 1360 (04/23/24) 1798 (04/06/24) > 2000 (03/26/24) ANEMIA ASSESSMENT Hemoglobin 10.4 (05/09/24) 10.4 (05/02/24) 10.9 (04/25/24) Iron Saturation (TSat) 41 (05/09/24) 45 (04/04/24) 22 (03/07/24) Ferritin 1,178 (05/09/24) 885 (04/04/24) 909 (03/07/24) Iron 73 (05/09/24) 90 (04/04/24) 40 (03/07/24) TIBC 180 (05/09/24) 201 (04/04/24) 183 (03/07/24) Reticulocyte Hemoglobin 33.7 (04/04/24) 32.8 (01/04/24) 31.4 (10/14/23) MCV 97 (05/09/24) 103 (04/04/24) 96 (03/07/24) BMM ASSESSMENT Calcium 9.0 05/09/24 8.7 04/04/24 9.1 03/07/24 Corrected Calcium 9.1 05/09/24 8.5 04/04/24 9.1 03/07/24 Phosphorus 4.2 05/09/24 4.4 04/04/24 5.6 03/11/24 Calcium Phosphorus Product 38 05/09/24 38 04/04/24 67 03/07/24 PTH 885 05/09/24 1,174 04/04/24 794 03/07/24 Vitamin D, 25-OH, Total 22.3 04/16/24 Alkaline Phosphatase 82 04/04/24 74 01/04/24 60 10/14/23 NUTRITION ASSESSMENT Albumin 3.9 05/09/24 4.2 04/04/24 4.0 03/07/24 Potassium 4.8 05/09/24 4.9 04/04/24 4.7 03/07/24 eNPCR 1.22 04/25/24 1.05 03/21/24 1.03 02/22/24 Hemoglobin A1C 6.1 04/04/24 6.3 01/04/24 6.9 10/14/23 ADDITIONAL LABS WBC 5.10 (05/09/24) 5.93 (04/04/24) 6.39 (03/07/24) Hepatitis B Surface Ab 105 (04/04/24) 182 (10/14/23) ADDITIONAL COMMENT COMMENTS: COMMENTS: Monthly Comprehensive Note Patient is stable Medications reviewed Physical Exam Vital signs: reviewed Lungs: clear Edema: none Impression 1. Adequacy: KT/V was assessed and the dialysis prescription was adjusted as needed. 2. Access: Dialysis access function is acceptable. 3. Hypertension: Hypertension seems to improve when patient is at EDW. Continue to encourage fluid restriction. Will consider adjusting BP regimen if continues to be hypertensive. 4. Anemia: Labs reviewed and adjustments to regimen made according to anemia management protocol. 5. Mineral Bone Disease: Labs reviewed. Diet and medication adjustment as per protocol. 6. Nutrition: Labs reviewed. Dietary adjustments made in conjunction with treatment counselor. Signed by: ANDREW RODRIGUEZ MD on 05/14/2024 at 03:01:45 PM Transcribed by: ANDREW RODRIGUEZ MD on 05/14/2024 at 03:01:45 PM documented in this encounter Plan of Treatment Upcoming Encounters Date Type Department Care Team (Late st Contact Info) Description 08/09/2024 10:00 AM EDT Procedure visit [facility] [address] [place] [phone] documented as of this encounter Visit Diagnoses Not on filedocumented in this encounter Care Teams Business Analytics Specialist Relationship Specialty Start Date End Date Name, MD Abdiel [address] [place] [address] PCP - General 01/22/19 documented as of this encounter
--- OUTSIDE RECORDS SUMMARY | 2024-05-22 09:45 | XMS_ITS | Encounter Summary ---
Author Organization [facility], Address [address] [place] [address] Phone Care Team Providers Care Manager Pool Name Role Phone Name, Abdiel COX Primary Care Provider [phone] Reason for Visit * Reason Onset Date Comments post op call 05/13/2024 Encounter Details Date Type Department Care Team (Late st Contact Info) Description 05/13/2024 Telephone [facility], - Vascular Access Center [address] [place] [phone] Ellie Virgen [address] [place] [phone] post op call Social History Tobacco Use Types Packs/Day Years [...] as of this encounter Miscellaneous Notes * Telephone Encounter - Ellie Virgen - 05/13/2024 8:49 AM EST POST PROCEDURE TELEPHONE INTERVIEW RESULTS OF CALL: []Spoke with patient. []Spoke with family member. []Spoke with outside facility: []Spoke with dialysis unit: []No answer. [x]Left message to call back w questions/concerns []Answering machine cannot accept message at this time. []Busy x2 PATIENT STATUS: []No problems or questions. []Bleeding. []Swelling. []Hand numbness/weakness/pain. []Nausea/vomiting. []Fever/chills. []Other procedure related problems: []POST OP INSTRUCTIONS REVIEWED WITH STATED UNDERSTANDING. [x]POST OP INSTRUCTIONS REVIEWED ON ANSWERING MACHINE. []ACTION PLAN IF NEEDED: documented in this encounter Plan of Treatment Upcoming Encounters Date Type Department Care Team (Late st Contact Info) Description 08/09/2024 10:00 AM EDT Procedure visit [facility] [address] [place] [address] documented as of this encounter Visit Diagnoses Not on filedocumented in this encounter Care Teams Manager Pool Relationship Specialty Start Date End Date Name, MD Abdiel [address] [place] [address] PCP - General 01/22/19 documented as of this encounter
--- OUTSIDE RECORDS SUMMARY | 2024-05-22 09:45 | XMS_ITS | Encounter Summary ---
Author Organization [employer] Address [address] [facility] 7 [place] [address] Care Team Providers Care Cloth Winder Machine Operator Name Role Phone Name, Abdiel COX Primary Care Provider [phone] Reason for Visit * Reason Onset Date Comments Appointment Request 05/17/2023 Encounter Details Date Type Department Care Team ([facility] st Contact Info) Description 05/17/2023 Telephone [facility] MEDICINE [address] [place], [place] [phone] Name, MD Abdiel [address] [place], [place] [phone] Appointment Request Social History Tobacco Use Types Packs/Day Years Used Date Smoking Tobacco: Never Alcohol Use Standard Drinks/Week Comments Never 0 [...] not to disclose 2021 10:29 AM EDT documented as of this encounter Miscellaneous Notes * Telephone Encounter - Fortunato Velásquez - 05/17/2023 1:33 PM EST Tc from pt son requesting to r/s follow up appt on 05/24/26 due to pt having dialysis that day. Pt can be on book on only Monday, Monday, and Fridays . documented in this encounter Plan of Treatment Upcoming Encounters Date Type Department Care Team (Late st Contact Info) Description 05/28/2024 10:45 AM EDT Office Visit [facility] MEDICINE [address] [place] [address] Name, MD Abdiel [address] [place] [address] 07/12/2024 3:15 PM EDT Office Visit [facility] MEDICINE [address] [place] [address] Saulo Cerna MD [address] [place] [address] 07/24/2024 11:00 AM EDT Office Visit [facility] OPTOMETRY [address] [place] [address] Andra Stanley, OD [address] [place] [address] documented as of this encounter Visit Diagnoses Not on filedocumented in this encounter Additional Health Concerns Assessment Noted Time PHQ-9 Depression Total Score: 0 07/07/19 23 9:53 AM EDT documented as of this encounter Care Teams Cloth Winder Machine Operator Relationship Specialty Start Date End Date Name, MD Abdiel [address] [place] [address] PCP - General Family Medicine 03/20/18 documented as of this encounter
--- OUTSIDE RECORDS SUMMARY | 2024-05-22 09:45 | XMS_ITS | Encounter Summary ---
Author Organization [employer] Address [address] [facility] 7t [place] [address] Care Team Providers Care Product Safety Professional Name Role Phone Name, Abdiel COX Primary Care Provider [phone] Reason for Visit * Reason Comments Med Refill Encounter Details Date Type Department Care Team ([facility] st Contact Info) Description 05/22/2024 Refill [facility] MEDICINE [address] [place], [place] [phone] Name, MD Abdiel [address] [place] [address] Social History Tobacco Use Types Packs/Day Years [...] Description 05/28/2024 10:45 AM EDT Office Visit [facility] MEDICINE [address] [place] [address] Abdiel August MD [address] [place] [address] 07/12/2024 3:15 PM EDT Office Visit [facility] MEDICINE [address] [place] [address] Saulo Cerna MD [address] [place] [address] 07/24/2024 11:00 AM EDT Office Visit [facility] OPTOMETRY [address] [place] [address] Jaden, Andra, OD [address] [place] [address] documented as of this encounter Visit Diagnoses Not on filedocumented in this encounter Additional Health Concerns Assessment Noted Time PHQ-9 Depression Total Score: 0 07/07/19 23 9:53 AM EDT documented as of this encounter Care Teams Product Safety Professional Relationship Specialty Start Date End Date Abdiel August MD [address] [place] [address] PCP - General Family Medicine 03/20/18 documented as of this encounter
--- OUTSIDE RECORDS SUMMARY | 2024-05-22 09:45 | XMS_ITS | Encounter Summary ---
Author Organization [employer] Address [address] [facility] 7t [place] [address] Care Team Providers Care Feather Curling Machine Operator Name Role Phone Name, Abdiel COX Primary Care Provider [phone] Encounter Details Date Type Department Care Team (Late st Contact Info) Description 06/27/2022 Orders Only [facility] CH[facility] MED & PEDS [address] [place] [address] Lawanda Blanca LPN Social History Tobacco Use Types Packs/Day Years Used Date Smoking Tobacco: Never Sex and Gender Information Value Date Recorded [...] Description 05/28/2024 10:45 AM EDT Office Visit [facility] MEDICINE [address] [place] [address] Name, MD Abdiel [address] [place] [address] 07/12/2024 3:15 PM EDT Office Visit [address] [address] Saulo Cerna MD [address] [place] [address] 07/24/2024 11:00 AM EDT Office Visit [facility] OPTOMETRY [address] [place] [address] Andra Stanley, OD [address] [place] [address] documented as of this encounter Visit Diagnoses Not on filedocumented in this encounter Care Teams Feather Curling Machine Operator Relationship Specialty Start Date End Date Name, MD Abdiel [address] [place] [address] PCP - General Family Medicine 03/20/18 documented as of this encounter
--- OUTSIDE RECORDS SUMMARY | 2024-05-22 09:45 | XMS_ITS | Encounter Summary ---
Author Organization [employer] Address [address] [facility] 7t [place] [address] Care Team Providers Care Feature Writer Name Role Phone Name, Abdiel COX Primary Care Provider [phone] Reason for Visit * Reason Onset Date Comments Call Back Request 11/03/2023 Encounter Details Date Type Department Care Team ([facility] st Contact Info) Description 11/03/2023 Telephone [facility] MEDICINE [address] [place], [place] [phone] Name, MD Abdiel [address] [place], [place] [phone] Call Back Request Social History Tobacco Use Types Packs/Day [...] encounter Miscellaneous Notes * Telephone Encounter - Bobby Almonte RN - 11/03/2023 1:07 PM EDT Son is looking for alternative for Fiasp flex touch. Please review and advise. * Telephone Encounter - Martin Mantilla - 11/03/2023 12:30 PM EDT Tc from patients son calling to request the status of the insulin aspart, with niacinamide, (Fiasp FlexTouch) 100 UNIT/ML injection personal lines underwriter did talk with pharmacy and the medication is in back order and won't be ready until Monday documented in this encounter Plan of Treatment Upcoming Encounters Date Type Department Care Team (Late st Contact Info) Description 05/28/2024 10:45 AM EDT Office Visit [facility] MEDICINE [address] [place] [address] Name, MD Abdiel [address] [place] [address] 07/12/2024 3:15 PM EDT Office Visit [facility] MEDICINE [address] [place] [address] Saulo Cerna MD [address] [place] [address] 07/24/2024 11:00 AM EDT Office Visit [facility] OPTOMETRY [address] [place] [address] Andra Stanley, STACY [address] [place] [address] documented as of this encounter Visit Diagnoses Not on filedocumented in this encounter Additional Health Concerns Assessment Noted Time PHQ-9 Depression Total Score: 0 07/07/19 23 9:53 AM EDT documented as of this encounter Care Teams Feature Writer Relationship Specialty Start Date End Date Name, MD Abdiel [address] [place] [address] PCP - General Family Medicine 03/20/18 documented as of this encounter
--- OUTSIDE RECORDS SUMMARY | 2024-05-22 09:45 | XMS_ITS | Encounter Summary ---
Author Organization [employer] Address [address] [facility] 7t [place] [address] Care Team Providers Care Excelsior Cutter Name Role Phone Name, Abdiel COX Primary Care Provider [phone] Reason for Visit * Reason Onset Date Comments Med Refill 05/21/2024 Encounter Details Date Type Department Care Team ([facility] st Contact Info) Description 05/21/2024 Telephone [facility] MEDICINE [address] [place], [place] [phone] Name, MD Abdiel [address] [place], [place] [phone] Med Refill Social History Tobacco Use Types Packs/Day Years [...] encounter Miscellaneous Notes * Telephone Encounter - Lawanda Blanca LPN - 05/21/2024 10:00 AM EST Medication was discontinued. * Telephone Encounter - Shelley Gamino - 05/21/2024 9:56 AM EST TC from pt requesting medication refill. Medications needing refill : traZODone (Desyrel) 50 MG tablet To be sent to: [facility]/pharmacy #[id number] [place] [address] [facility] [employer] documented in this encounter Plan of Treatment Upcoming Encounters Date Type Department Care Team (Late st Contact Info) Description 05/28/2024 10:45 AM EDT Office Visit [facility] MEDICINE [address] [place] [address] Name, MD Abdiel [address] [place] [address] 07/12/2024 3:15 PM EDT Office Visit [facility] MEDICINE [address] [place] [address] Saulo Cerna MD [address] [place] [address] 07/24/2024 11:00 AM EDT Office Visit [facility] OPTOMETRY [address] [place] [address] Andra Stanley, OD [address] [place] [address] documented as of this encounter Visit Diagnoses Not on filedocumented in this encounter Additional Health Concerns Assessment Noted Time PHQ-9 Depression Total Score: 0 07/07/19 9:53 AM EDT documented as of this encounter Care Teams Excelsior Cutter Relationship Specialty Start Date End Date Name, MD Abdiel [address] [place] [address] PCP - General Family Medicine 03/20/18 documented as of this encounter
--- OUTSIDE RECORDS SUMMARY | 2024-05-22 09:45 | XMS_ITS | Encounter Summary ---
Author Organization [facility], Address [address] [place] [address] Phone Care Team Providers Care Setter Out Name Role Phone Name, Abdiel COX Primary Care Provider Encounter Details Date Type Department Care Team (Late st Contact Info) Description 04/30/2024 Treatment [facility], [address] [place] [address] Andrew Rodriguez MD [address] [place] [address] [place] [address] Social History Tobacco Use Types Packs/Day Years [...] Dialysis Note - Andrew Rodriguez MD - 04/30/2024 12:00 AM EST Patient: David De La Rosa : 1940 [facility]: [facility] Note Type: Dialysis Rounds-Comp Service Date: 04/30/2024 This patient was personally seen for a complete visit as part of routine monthly dialysis care for end stage renal disease. Attending Dairy Processing Equipment Operator: ANDREW RODRIGUEZ Dialysis Location: [facility] DIALYS[facility] Schedule: Shift: 2 HOME MEDICATIONS Current [facility] Outpatient Medications acetaminophen 325 mg capsule Take [...] tablet by mouth twice a day. Current [facility] Allergies Allergen: No Known Allergies Allergen: No Known Allergies Allergen: No Known Drug Allergies Allergen: No Known Drug Allergies Allergen: No Known Food Allergies Allergen: No Known Food Allergies DIALYSIS PRESCRIPTION Treatment Data Treatment Date: 04/30/2024 started at: 9:56 AM Dialysate / Machine Temp (prescribed): 36.0*C Dialysate / Machine Temp (actual): 36.0*C BFR (prescribed): 450 BFR (average delivered): 450 DFR (prescribed): Manual 500 DFR (average delivered): 500 Prescribed Time: 04:00 Actual Time: 04:02 EDW (kg): 69.0 Dialyzer: 160NRe Optiflux Dialysate: 2.0 K, 2.5 Ca, 1.0 Mg, 100 Dextrose (G2251) Sodium: 138 Bicarb: 33 Pre Dialysis Vitals Pre BP Sit: 149/72 Pre Wt (kg): 71.6 EDW Deviation (kg): 2.6 Temp: 98.0*F Post Dialysis Vitals Post BP Sit: 157/71 Post Wt (kg): 69.4 TREATMENT MEDICATIONS ORDERS Heparin Sodium (Porcine) 1,000 Units/mL Systemic 3000 units IVP Every Treatment 03/14/2024 - 03/13/2025 Vitamin D (Calcitriol) Oral 0.50 mcg ORAL Every Treatment 04/11/2024 - 04/10/2025 BP AND FLUID ASSESSMENT Post BP Sit 157/71 - 04/30/2024 162/71 - 04/27/2024 177/70 - 04/25/2024 Post Wt (kg) 69.4 - 04/30/2024 68.9 - 04/27/2024 68.7 - 04/25/2024 EDW (kg) 69.0 - 04/30/2024 68.5 - 04/27/2024 68.5 - 04/25/2024 Deviation (kg) 0.4 - 04/30/2024 0.4 - 04/27/2024 0.2 - 04/25/2024 ADEQUACY ASSESSMENT Missed Treatments 0 - Last 30 days 0 - Last 60 days spKt/V (Daugirdas II) 1.83 (03/21/24) 2.01 (02/22/24) 1.90 (01/25/24) eKdrt/V 1.61 (03/21/24) 1.79 (02/22/24) 1.68 (01/25/24) % Urea Reduction 78 (04/25/24) 78 (03/21/24) 81 (02/22/24) BUN 68 (04/25/24) 58 (03/21/24) 53 (02/22/24) BUN Post Dialysis 15 (04/25/24) 13 (03/21/24) 10 (02/22/24) Creatinine 10.99 (04/04/24) 10.07 (03/07/24) 10.01 (02/08/24) Bicarbonate (CO2) 23 (04/04/24) 25 (03/07/24) 25 (02/08/24) Sodium 138 (04/04/24) 137 (03/07/24) 139 (02/08/24) ACCESS ASSESSMENT AVFistula Unknown Left Upper Arm Active (In Use) - 03/06/2019 Placed - 01/21/2019 Access Flow 1360 (04/23/24) 1798 (04/06/24) > 2000 (03/26/24) ANEMIA ASSESSMENT Hemoglobin 10.9 (04/25/24) 11.4 (04/18/24) 11.4 (04/11/24) Iron Saturation (TSat) 45 (04/04/24) 22 (03/07/24) 60 (02/08/24) Ferritin 885 (04/04/24) 909 (03/07/24) 1,067 (02/08/24) Iron 90 (04/04/24) 40 (03/07/24) 115 (02/08/24) TIBC 201 (04/04/24) 183 (03/07/24) 191 (02/08/24) Reticulocyte Hemoglobin 33.7 (04/04/24) 32.8 (01/04/24) 31.4 (10/14/23) MCV 103 (04/04/24) 96 (03/07/24) 95 (02/08/24) BMM ASSESSMENT Calcium 8.7 04/04/24 9.1 03/07/24 9.4 02/27/24 Corrected Calcium 8.5 04/04/24 9.1 03/07/24 10.0 02/08/24 Phosphorus 4.4 04/04/24 5.6 03/11/24 7.4 03/07/24 Calcium Phosphorus Product 38 04/04/24 67 03/07/24 42 02/08/24 PTH 1,174 04/04/24 794 03/07/24 894 02/08/24 Vitamin D, 25-OH, Total 22.3 04/16/24 Alkaline Phosphatase 82 04/04/24 74 01/04/24 60 10/14/23 NUTRITION ASSESSMENT Albumin 4.2 04/04/24 4.0 03/07/24 4.1 02/08/24 Potassium 4.9 04/04/24 4.7 03/07/24 5.4 02/08/24 eNPCR 1.05 03/21/24 1.03 02/22/24 1.25 01/25/24 Hemoglobin A1C 6.1 04/04/24 6.3 01/04/24 6.9 10/14/23 ADDITIONAL LABS WBC 5.93 (04/04/24) 6.39 (03/07/24) 6.07 (02/08/24) Hepatitis B Surface Ab 105 (04/04/24) 182 [...] reviewed. Dietary adjustments made in conjunction with catcher plug. Signed by: ANDREW RODRIGUEZ MD on 05/01/2024 at 11:17:36 AM Transcribed by: ANDREW RODRIGUEZ MD on 05/01/2024 at 11:17:36 AM documented in this encounter Plan of Treatment Upcoming Encounters Date Type Department Care Team (Late st Contact Info) Description 08/09/2024 10:00 AM EDT Procedure visit [facility] [address] [place] [phone] documented as of this encounter Visit Diagnoses Not on filedocumented in this encounter Care Teams Setter Out Relationship Specialty Start Date End Date Name, MD Abdiel [address] [place] [address] PCP - General 01/22/19 documented as of this encounter
--- OUTSIDE RECORDS SUMMARY | 2024-05-22 09:45 | XMS_ITS | Encounter Summary ---
Author Organization [facility], Address [address] [place] [address] Phone Care Team Providers Care Juice Scaleman Name Role Phone Name, Abdiel COX Primary Care Provider [phone] Encounter Details Date Type Department Care Team (Late Contact Info) Description 05/16/2024 Orders Only [facility] [address] [place] [phone] Kolton Ignacio MD [address] [facility] [place] [phone] Social History Tobacco Use Types Packs/Day Years [...] on file documented as of this encounter Plan of Treatment Upcoming Encounters Date Type Department Care Team (Late st Contact Info) Description 08/09/2024 10:00 AM EDT Procedure visit [facility], - [facility] Access Center [address] [place] [address] [place] [phone] documented as of this encounter Procedures Procedure Name Priority Date/Time Associated Diagnosis Comments HEMATOLOGY Routine 05/16/2024 documented in this encounter Results * (ABNORMAL) HEMATOLOGY (05/16/2024) Hemoglobin 10.0(L) 14.0 - 18.0 g/dL [facility] Hemoglobin x 3 30(L) 42.0 - 54.0 % [facility] 05/16/2024 05/18/2024 11: 48 AM EST Narrative CAIT - 05/18/2024 Unless otherwise specified, test(s) performed at: [facility], [address] [place] [address] JUICE SCALEMAN: Ben Conklin M.D. For any questions, please call customer service at FREQUENCY:OTHER Resulting Agency Comment Specimen source: Blood us Kolton Ignacio MD LAB BLOOD ORDERABLES Final Re sult [facility] See order comments or contact performing lab Unknown, [place] documented in this encounter Visit Diagnoses Not on filedocumented in this encounter Care Teams Juice Scaleman Relationship Specialty Start Date End Date Name, MD Abdiel [address] [place] [address] PCP - General 01/22/19 documented as of this encounter
--- OUTSIDE RECORDS SUMMARY | 2024-05-22 09:45 | XMS_ITS | Encounter Summary ---
Author Organization [employer] Address [address] [facility] 7t [place] [address] Care Team Providers Care Gauge Inspector Name Role Phone Name, Abdiel COX Primary Care Provider [phone] Encounter Details Date Type Department Care Team (Late st Contact Info) Description 05/23/2022 Orders Only [facility] MED & PEDS [address] [place], [place] [phone] Lawanda Blanca LPN Social History Tobacco Use Types Packs/Day Years Used Date Smoking Tobacco: Never Sex and Gender Information Value Date Recorded Sex Assigned at Male 01/17/2022 10:29 AM EDT Legal Sex Male 10:29 AM EDT Gender Identity Choose not to disclose 10:29 AM EDT Sexual Orientation Choose not to disclose 2021 10:29 AM EDT COVID-19 Exposure Response Date Recorded In the last 10 days, have yo u been in contact with someone who was confirmed or suspected to have Coronavirus/COVID-19? No / Unsure 05/02/2022 9:40 AM EST documented as of this encounter Plan of Treatment Upcoming Encounters Date Type Department Care Team (Late st Contact Info) Description 05/28/2024 10:45 AM EDT Office Visit [facility] MEDICINE [address] [place] [phone] Name, MD Abdiel [address] [place] [address] 07/12/2024 3:15 PM EDT Office Visit [address] [address] Saulo Cerna MD [address] [place], [place] [phone] 07/24/2024 11:00 AM EDT Office Visit [facility] OPTOMETRY [address] [place], [place] [phone] Andra Stanley, STACY [address] [place], [place] [phone] documented as of this encounter Visit Diagnoses Not on filedocumented in this encounter Care Teams Gauge Inspector Relationship Specialty Start Date End Date Name, MD Abdiel [address] [place], [place] [phone] PCP - General Family Medicine 03/20/18 documented as of this encounter
--- OUTSIDE RECORDS SUMMARY | 2024-05-22 09:45 | XMS_ITS | Encounter Summary ---
Author Organization [facility], Address [address] [place] [address] Phone Care Team Providers Care Software Trainer Name Role Phone Name, Abdiel COX Primary Care Provider [phone] Encounter Details Date Type Department Care Team (Late st Contact Info) Description 05/21/2024 Treatment [facility], [address] [place] [address] Andrew Rodriguez MD [address] [place] [address] [place] [phone] End stage renal disease; Dependence on renal dialysis Social History Tobacco Use Types Packs/Day Years [...] Dialysis Note - Andrew Rodriguez MD - 05/21/2024 12:00 AM EST Patient: David De La Rosa : 1940 Note Type: Dialysis Rounds-Comp Service Date: 05/21/2024 This patient was personally seen for a complete visit as part of routine monthly dialysis care for end stage renal disease. Attending Cash Processing Specialist: ANDREW RODRIGUEZ MD Dialysis Location: [facility] Schedule: Shift: 2 HOME MEDICATIONS Current [facility] Outpatient Medications acetaminophen 325 mg capsule Take 2 capsule by mouth every six hours. [PRN.] aspirin 81 mg tablet,delayed release (DR/EC) Take [...] tablet by mouth twice a day. Current [facility] Allergies Allergen: No Known Allergies Allergen: No Known Allergies Allergen: No Known Drug Allergies Allergen: No Known Drug Allergies Allergen: No Known Food Allergies Allergen: No Known Food Allergies DIALYSIS PRESCRIPTION Treatment Data Treatment Date: 05/21/2024 started at: 10:18 AM Dialysate / Machine Temp (prescribed): 36.0*C Dialysate / Machine Temp (actual): 35.8*C BFR (prescribed): 450 BFR (average delivered): 430 DFR (prescribed): Manual 500 DFR (average delivered): 500 Prescribed Time: 04:00 Actual Time: 03:57 EDW (kg): 67.5 Dialyzer: 160NRe Optiflux Dialysate: 2.0 K, 2.5 Ca, 1.0 Mg, 100 Dextrose (G2251) Sodium: 138 Bicarb: 33 Pre Dialysis Vitals Pre BP Sit: 162/70 Pre Wt (kg): 70.4 EDW Deviation (kg): 2.9 Temp: 97.0*F Post Dialysis Vitals Post BP Sit: 151/70 Post Wt (kg): 67.6 TREATMENT MEDICATIONS ORDERS Heparin Sodium (Porcine) 1,000 Units/mL Systemic 3000 units IVP Every Treatment 03/14/2024 - 03/13/2025 Iron Sucrose (Venofer) 50 mg IVP 1X Week 05/16/2024 - 05/15/2025 Vitamin D (Calcitriol) Oral 0.75 mcg ORAL Every Treatment 05/14/2024 - 05/13/2025 BP AND FLUID ASSESSMENT Post BP Sit 151/70 - 05/21/2024 135/63 - 05/18/2024 160/74 - 05/16/2024 Post Wt (kg) 67.6 - 05/21/2024 66.9 - 05/18/2024 67.7 - 05/16/2024 EDW (kg) 67.5 - 05/21/2024 67.2 - 05/18/2024 67.2 - 05/16/2024 Deviation (kg) 0.1 - 05/21/2024 -0.3 - 05/18/2024 0.5 - 05/16/2024 ADEQUACY ASSESSMENT Missed Treatments 0 - Last [...] - 03/06/2019 Placed - 01/21/2019 Access Flow > 2000 (05/21/24) 1360 (04/23/24) 1798 (04/06/24) ANEMIA ASSESSMENT Hemoglobin 10.0 (05/16/24) 10.4 (05/09/24) 10.4 (05/02/24) Iron Saturation (TSat) 41 (05/09/24) 45 (04/04/24) [...] reviewed. Dietary adjustments made in conjunction with semiconductor wafer inspector. 3/4: stable, no issues reported same HD Rx Signed by: ANDREW RODRIGUEZ MD on 05/21/2024 at 05:38:31 PM documented in this encounter Plan of Treatment Upcoming Encounters Date Type Department Care Team (Late st Contact Info) Description 08/09/2024 10:00 AM EDT Procedure visit [facility] - [facility] Center [address] [place] [address] documented as of this encounter Visit Diagnoses Diagnosis End stage renal disease Dependence on renal dialysis documented in this encounter Care Teams Software Trainer Relationship Specialty Start Date End Date Name, MD Abdiel [address] [place] [phone] PCP - General 01/22/19 documented as of this encounter
--- OUTSIDE RECORDS SUMMARY | 2024-05-22 09:45 | XMS_ITS | Encounter Summary ---
Author Organization [facility], Address [address] [place] [address] Phone Care Team Providers Care Cut Off Sawyer Name Role Phone Name, Abdiel COX Primary Care Provider [phone] Encounter Details Date Type Department Care Team (Late Contact Info) Description 04/25/2024 Orders Only [facility] [address] [place] [phone] Kolton Ignacio MD [address] [facility] [place] [phone] Social History Tobacco Use Types Packs/Day Years [...] visit [facility], - Vascular Access Center [address] [facility] [place] [phone] documented as of this encounter Procedures Procedure Name Priority Date/Time Associated Diagnosis Comments HD KINETICS Routine 04/25/2024 POST CHEMISTRY Routine 04/25/2024 HEMATOLOGY Routine 04/25/2024 CHEMISTRY Routine 04/25/2024 CIVICO LAB RESULTS Routine 04/25/2024 documented in this encounter Results * [facility] Lab Results (04/25/2024) eKt/V ([place]) 1.60 [facility] nPCR_HD 1.39 [facility] eKdrt/V 1.62 [facility] eKt/V Gotch 1.62 [facility] spKt/V Gotch 1.87 [facility] ge Center eNPCR 1.22 [facility] PCR 75.54 [facility] WSTDKT/V 2.6 [facility] spKt/V (Daugirdas II) 1.83 [facility] 04/25/2024 04/25/2024 [facility] Ordering Provider LAB BLOOD ORDERABLES Final Result [facility] Contact Performing lab Unknown, [place] * HD KINETICS (04/25/2024) Pathologist [facility] % Urea Reduction 78 65 - 80 % [facility] 04/25/2024 04/30/2024 10: 29 AM EST Narrative Resulting Agency Comment Specimen source: Plasma Kolton Ignacio MD LAB BLOOD ORDERABLES Final Re sult [facility] [employer] See order comments or contact performing lab Unknown, [place] * POST CHEMISTRY (04/25/2024) Pathologist [facility] BUN Post Dialysis 15 6 - 19 mg/dL [facility] 04/25/2024 04/30/2024 10: 29 AM EST Narrative [facility] - 04/30/2024 Unless otherwise specified, test(s) performed at: [facility], [address] [place] [address] CLOTH CLASSER: Ben Conklin M.D. For any questions, please call customer service at FREQUENCY:OTHER Resulting Agency Comment Specimen source: Plasma Kolton Ignacio MD LAB BLOOD ORDERABLES Final Re sult Performing Organization Address [facility] de Phone Number [facility] See order comments or contact performing lab Unknown, [place] * (ABNORMAL) [facility] (04/25/2024) BUN 68(H) 6 - 19 mg/dL [facility] 04/25/2024 04/27/2024 11: 28 AM EST Narrative [facility] - 04/27/2024 Unless otherwise specified, test(s) performed at: [facility], [address] [place] [address] CLOTH CLASSER: Ben Conklin M.D. For any questions, please call customer service at FREQUENCY:OTHER Resulting Agency Comment Specimen source: Serum Kolton Ignacio MD LAB BLOOD ORDERABLES Final Re sult Performing Organization Address [facility] de Phone Number [facility] See order comments or contact performing lab Unknown, [place] * (ABNORMAL) HEMATOLOGY (04/25/2024) Hemoglobin 10.9(L) 14.0 - 18.0 g/dL [facility] Hemoglobin x 3 32.7(L) 42.0 - 54.0 % [facility] 04/25/2024 04/27/2024 11: 29 AM EST Narrative [facility] - 04/27/2024 Unless otherwise specified, test(s) performed at: [facility], [address] [place] [address] CLOTH CLASSER: Ben Conklin M.D. For any questions, please call customer service at FREQUENCY:OTHER Resulting Agency Comment Specimen source: Blood Kolton Ignacio MD LAB BLOOD ORDERABLES Final Re sult Performing Organization Address [facility] de Phone Number [facility] See order comments or contact performing lab Unknown, [place] documented in this encounter Visit Diagnoses Not on filedocumented in this encounter Care Teams Cut Off Sawyer Relationship Specialty Start Date End Date Name, MD Abdiel [address] [place] [address] PCP - General 01/22/19 documented as of this encounter
--- OUTSIDE RECORDS SUMMARY | 2024-05-22 09:45 | XMS_ITS | Encounter Summary ---
Author Organization [employer] Address [address] [facility] 7t [place] [address] Care Team Providers Care Medical Delivery Driver Name Role Phone Name, Abdiel COX Primary Care Provider [phone] Encounter Details Date Type Department Care Team (Late st Contact Info) Description 08/03/2023 Telephone [facility] MEDICINE [address] [place], [place] [phone] Name, MD Abdiel [address] [place], [place] [phone] Social History Tobacco Use Types Packs/Day Years [...] Description 05/28/2024 10:45 AM EDT Office Visit [facility] MEDICINE [address] [place] [address] NameAbdiel MD [address] [place] [address] 07/12/2024 3:15 PM EDT Office Visit [facility] MEDICINE [address] [place] [address] Saulo Cerna MD [address] [place] [address] 07/24/2024 11:00 AM EDT Office Visit [facility] OPTOMETRY [address] [place] [address] Jaden, Andra, OD [address] [place] [address] documented as of this encounter Visit Diagnoses Not on filedocumented in this encounter Additional Health Concerns Assessment Noted Time PHQ-9 Depression Total Score: 0 07/07/19 23 9:53 AM EDT documented as of this encounter Care Teams Medical Delivery Driver Relationship Specialty Start Date End Date Abdiel August MD [address] [place] [address] PCP - General Family Medicine 03/20/18 documented as of this encounter
--- OUTSIDE RECORDS SUMMARY | 2024-05-22 09:45 | XMS_ITS | Clinical Summary ---
Author Organization [facility], Address [address] [place] [address] Phone Care Team Providers Care Sand Carrier Name Role Phone Name, Abdiel COX Primary Care Provider [phone] Allergies No known active allergies Medications albuterol HFA (PROVENTIL HFA;VENTOLIN HFA) 108 (90 Base) MCG/ACT inhaler Inhale 2 puffs if needed 9 Active aspirin (ST JACEK) 81 MG EC tablet Take 1 tablet by mouth 1 (one) time each day Active carvedilol (COREG) 12.5 MG tablet Take 6.25 mg by mouth in the morning and 6.25 mg in the evening. Take with meals. Active Alaway 0.025 % ophthalmic solution if needed 1 Active hydrOXYzine (Vistaril) 25 MG capsule Take 1 capsule (25 mg total) by mouth 3 (three) times a day if needed for itching 30 capsule 3 3 Active acetaminophen (TYLENOL) 325 MG tablet Take 650 mg by mouth every 6 (six) hours if needed for mild pain Active atorvastatin (LIPITOR) 40 MG tablet 4 Active Auryxia 1 GM 210 MG(Fe) tablet TAKE 2 TABLETS BY MOUTH THREE TIMES A DAY WITH MEALS. SWALLOW WHOLE, DO NOT CHEW OR CRUSH MEDICATION 4 Active Gvoke Kit 1 MG/0.2ML solution INJECT 1 MG UNDER THE SKIN IF NEEDED (HYPOGLYCEMIA). 4 Active omeprazole (PriLOSEC) [address] capsule Take by mouth 1 (one) time each day 4 Active valsartan (DIOVAN) 40 MG tablet TAKE 1/2 TABLET ORALLY 2 TIMES A DAY 4 Active Fluticasone Furoate-Vilante rol (Breo Ellipta) 50-25 MCG/ACT aerosol powder Inhale Active docusate sodium (COLACE) 100 MG capsule Take 100 mg by mouth in the morning and 100 mg in the evening. Active insulin lispro protamine-insul in lispro (HumaLOG 50-50) (50-50) 100 UNIT/ML inj pen Inject under the skin 2 (two) times a day before meals Active lactulose (CEPHULAC) 10 g packet Take 10 g by mouth in the morning and 10 g in the evening and 10 g before bedtime. Active lidocaine (LIDODERM) 5 % patch Apply 1 patch topically 1 (one) time each day Remove & discard patch within 12 hours or as directed by MD. Active mirtazapine (REMERON) 15 MG tablet Take 15 mg by mouth every night Active sennosides-docu sate sodium (SENOKOT-S) 8.6-50 MG tablet Take 1 tablet by mouth 1 (one) time each day Active tamsulosin (FLOMAX) 0.4 MG 24 hr capsule Take 0.4 mg by mouth 1 (one) time each day Active polyethylene glycol (GLYCOLAX) 17 g packet Take 17 g by mouth 1 (one) time each day Active Active Problems Problem Noted Date Diagnosed Date Bilateral cataracts 12/29/2023 History of coronary artery bypass grafting 10/31 Overview (12/29/2023): Last Assessment & Plan: -appears to be recovering well. Weakness and decreased appetite most likely r/t chronic disease and recent surgery. Advised continued movement and physical activity as tolerated. 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 07/06/2022 Peripheral vascular disease 07/06/2022 Melanoma carcinomatosis 01/05/2022 Back pain 01/05/2022 Anemia in chronic kidney disease 07/24/2020 Chronic kidney disease stage 3 07/24/2020 Dependence on renal dialysis 07/24/2020 End stage renal disease 07/24/2020 Gout 07/24/2020 Hypercholesterolemia 07/24/2020 Hyperparathyroidism 07/24/2020 Hypertensive heart and renal disease with (congestive) heart failure 07/24/2020 Hypertensive heart disease without congestive he art failure 07/24/2020 Proteinuria 07/24/2020 Renal disorder due to type 2 diabetes mellitus 0 07/24/2020 Serum creatinine above reference range Chronic pain 07/23/2018 Epistaxis 07/23/2018 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 Benign essential hypertension 04/13/2015 Osteoarthritis of knee 04/13/2015 Type 2 diabetes mellitus 04/13/2015 Encounters Date Type Department Care Team Description 05/21/2024 Treatment [facility], [address] [place] [address] Andrew Vincent MD End stage renal disease; Dependence on renal dialysis 05/16/2024 Orders Only [facility] [address] [place] [address] Kolton Ignacio MD 05/14/2024 Treatment [facility] [address] [place] [address] Andrew Vincent MD 05/13/2024 Telephone [facility] [address] [place] [address] [place] [address] Ellie Virgen post op call 05/10/2024 10:00 AM EST Procedure visit [facility] [address] [place] [address] [place] [address] Luisito Artis MD End stage renal disease (HCC) (Primary Dx); Stenosis of other vascular prosthetic devices, implants and grafts, initial encounter (HCC) 05/09/2024 Orders Only [facility] [address] [place] [address] Kolton Ignacio MD 05/07/2024 Treatment [facility] [address] [place] [address] Kadie Slater, CLINICAL INFORMATICS MANAGER-C 05/02/2024 Orders Only [facility] [address] [place] [address] Kolton Ignacio MD 04/30/2024 Treatment [facility] [address] [place] [address] Andrew Vincent MD 04/25/2024 Orders Only [facility] [address] [place] [address] Kolton Ignacio MD 04/23/2024 Treatment [facility] [address] [place] [address] Kadie Slater, CLINICAL INFORMATICS MANAGER-C 04/18/2024 Orders Only [facility] [address] [address] Kolton Ignacio MD 04/16/2024 Orders Only [facility] [address] [address] Kolton Ignacio MD 04/16/2024 Treatment [facility] [address] [place] [address] Kadie Slater, CLINICAL INFORMATICS MANAGER-C 04/11/2024 Orders Only [facility] [address] [address] Kolton Ignacio MD 04/04/2024 Orders Only [facility] [address] [address] Kolton Ignacio MD 04/04/2024 Treatment [facility] [address] [place] [address] Andrew Vincent MD 03/28/2024 Orders Only [facility] [address] [address] Kolton Ignacio MD 03/28/2024 Treatment [facility] [address] [place] [address] Sara Morin PA 03/21/2024 Orders Only [facility] [address] [address] Kolton Ignacio MD 03/21/2024 Treatment [facility] [address] [place] [address] Sara Morin PA 03/14/2024 Orders Only [facility] [address] [address] Kolton Ignacio MD 03/11/2024 Orders Only [facility] [address] [address] Kolton Ignacio MD 03/07/2024 Orders Only [facility] [address] [address] Kolton Ignacio MD 03/05/2024 Treatment [facility] [address] [place] [address] Sara Morin PA 02/29/2024 Orders Only [facility] [address] [address] Kolton Ignacio MD 02/27/2024 Orders Only [facility] [address] [address] Kolton Ignacio MD 02/27/2024 Treatment [facility] [address] [place] [address] Sara Morin PA 02/22/2024 Orders Only [facility] [address] [place] [address] Kolton Ignacio MD 02/22/2024 Treatment [facility], [address] [place] [phone] Andrew Vincent MD from Last 3 Months Family History Medical History Relation Comments Diabetes Sibling 1 Kidney disease Sibling 1 Kidney disease Sibling 2 Diabetes Sibling 3 Relation Status Comments Father Mother Sibling 1 Sibling 2 Sibling 3 Social History Tobacco Use Types Packs/Day Years Used Date Smoking Tobacco: Never Smokeless Tobacco: Never Tobacco Cessation:Counseling Given: Not Answered Alcohol Use Standard Drinks/Week Comments Not Currently 0 (1 standard drink = 0.6 oz pure alcohol) Alcoholic Drinks/day: Occasional social drink Sex and Gender Information Value Date Recorded Sex Assigned at Not on file Legal Sex Male 4:34 PM EST Gender Identity Not on file Sexual Orientation Not on file Last Filed Vital Signs Vital Sign Reading Time Taken Comments Blood Pressure 162/72 05/10/2024 9:27 AM EST Pulse 71 05/10/2024 9:27 AM EST Temperature 36.8 ??C (98.3 ??F) 05/10/2024 9:27 AM ES T Respiratory Rate 16 05/10/2024 9:27 AM EST Oxygen Saturation 95% 05/10/2024 9:27 AM EST Inhaled Oxygen Concentration - - Weight 68.9 kg (152 lb) 05/10/2024 9:27 AM EST Height 170.2 cm (5' 7 ) 05/10/2024 9:27 AM EST Body Mass Index 23.81 05/10/2024 9:27 AM EST Plan of Treatment Upcoming Encounters Date Type Department Care Team (Late st Contact Info) Description 08/09/2024 10:00 AM EDT Procedure visit [facility] [address] [place] [phone] Health Maintenance Due Date Last Done Comments Hepatitis B Vaccine (1 of 5 - Risk Dialysis 4-dose series) 1960 Diabetes: Pedal Pulse Checked 06/07/2019 Diabetes: Sensory Foot Exam 06/07/2019 Diabetes: Visual Foot Exam 06/07/2019 Influenza Vaccine (#1) 2023 , 12/14/2020, 12/12/2018, Additional history exists Diabetes: Ophthalmology Exam 05/17/2024 05/17/2023 Diabetes: Hemoglobin A1C 07/03/2024 025, 01/04/2024, 11/01/2023, Additional history exists Pneumococcal Vaccine: 65+ Years Completed 11/15/2017, 11/15/2017, 09/30/2016, Additional history exists Procedures Procedure Name Priority Date/Time Associated Diagnosis Comments HEMATOLOGY Routine 05/16/2024 IMMUNO CHEMISTRY Routine 05/09/2024 CHEMISTRY Routine 05/09/2024 HEMATOLOGY Routine 05/09/2024 CHEMISTRY Routine 05/09/2024 HEMATOLOGY Routine 05/02/2024 [facility] RES[facility] Routine 04/25/2024 HD KINETICS Routine 04/25/2024 POST CHEMISTRY Routine 04/25/2024 CHEMISTRY Routine 04/25/2024 HEMATOLOGY Routine 04/25/2024 HEMATOLOGY Routine 04/18/2024 SPECIAL CHEMISTRY Routine 04/16/2024 HEMATOLOGY Routine 04/11/2024 IMMUNO CHEMISTRY Routine 04/04/2024 CHEMISTRY Routine 04/04/2024 SPECIAL CHEMISTRY Routine 04/04/2024 HEMATOLOGY Routine 04/04/2024 CHEMISTRY Routine 04/04/2024 HEMATOLOGY Routine 03/28/2024 [facility] RESULTS Routine 03/21/2024 HD KINETICS Routine 03/21/2024 POST CHEMISTRY Routine 03/21/2024 CHEMISTRY Routine 03/21/2024 HEMATOLOGY Routine 03/21/2024 HEMATOLOGY Routine 03/14/2024 CHEMISTRY Routine 03/11/2024 IMMUNO CHEMISTRY Routine 03/07/2024 CHEMISTRY Routine 03/07/2024 HEMATOLOGY Routine 03/07/2024 CHEMISTRY Routine 03/07/2024 HEMATOLOGY Routine 02/29/2024 CHEMISTRY Routine 02/27/2024 [facility] RESULTS Routine 02/22/2024 HD KINETICS Routine 02/22/2024 POST CHEMISTRY Routine 02/22/2024 CHEMISTRY Routine 02/22/2024 HEMATOLOGY Routine 02/22/2024 from Last 3 Months Results * (ABNORMAL) HEMATOLOGY (05/16/2024) Only the most recent of13 resultswithin the time period is included. Hemoglobin 10.0(L) 14.0 - 18.0 g/dL [facility] Hemoglobin x 3 30(L) 42.0 - 54.0 % [facility] 05/16/2024 05/18/2024 11: 48 AM EST Narrative [facility] - 05/18/2024 Unless otherwise specified, test(s) performed at: [facility], [address] [place] [id number] RESIDENTIAL INSTRUCTOR: Ben Conklin M.D. For any questions, please call customer service at FREQUENCY:OTHER Resulting Agency Comment Specimen source: Blood Kolton Ignacio MD LAB BLOOD ORDERABLES Final Re sult [facility] See order comments or contact performing lab Unknown, [place] * IMMUNO CHEMISTRY (05/09/2024) Only the most recent of3 resultswithin the time period is included. Pathologist [facility] Hep B Surface Ag Negative Negative [facility] 05/09/2024 05/10/2024 9:0 1 AM EST Narrative Resulting Agency Comment Specimen source: Serum Kolton Ignacio MD LAB BLOOD ORDERABLES Final Re sult Performing Organization Address City/[facility]/ZIP Co de Phone Number [facility] See order comments or contact performing lab Unknown, [place] * (ABNORMAL) [facility] Chemistry (05/09/2024) Only the most recent of11 resultswithin the time period is included. Creatinine 8.17(H) 0.60 - 1.30 mg/dL [facility] Sodium 137 136 - 145 mEq/L [facility] Potassium 4.8 3.5 - 5.1 mEq/L [facility] Bicarbonate (CO2) 25 22 - 29 mEq/L [facility] Calcium 9.0 8.4 - 10.2 mg/dL [facility] Corrected Calcium 9.1 8.4 - 10.2 mg/dL [facility] Comment: Corrected Calcium is not equivalent to measured Ionized Calcium. Phosphorus 4.2 2.6 - 4.5 mg/dL [facility] Calcium Phosphorus Product 38 0 - 54 [facility] Calcium Phosporus Product, Cor 38 0 - 54 [facility] ALT (SGPT) 31 7 - 52 U/L [facility] Albumin 3.9 3.5 - 5.2 g/dL [facility] Glucose 201(H) 70 - 100 mg/dL [facility] Iron 73 45 - 160 mcg/dL [facility] UIBC 107(L) 155 - 355 mcg/dL [facility] TIBC 180(L) 185 - 515 mcg/dL [facility] Iron Saturation (TSat) 41 20 - 55 % [facility] Ferritin 1,178(H) 22 - 322 ng/mL [facility] 05/09/2024 05/10/2024 9:0 1 AM EST Narrative [facility] - 05/10/2024 Unless otherwise specified, test(s) performed at: [facility], [address] [place] [address] RESIDENTIAL INSTRUCTOR: Ben Conklin M.D. For any questions, please call customer service at FREQUENCY:MONTHLY Resulting Agency Comment Specimen source: Serum Kolton Ignacio MD LAB BLOOD ORDERABLES Edited R esult - Final Performing Organization Address [facility] de Phone Number [facility] See order comments or contact performing lab Unknown, [place] * HD KINETICS (04/25/2024) Only the most recent of3 resultswithin the time period is included. % Urea Reduction 78 65 - 80 % [facility] 04/25/2024 04/30/2024 10: 29 AM EST Narrative Resulting Agency Comment Specimen source: Plasma Kolton Ignacio MD LAB BLOOD ORDERABLES Final Re sult Performing Organization Address [facility] de Phone Number [facility] See order comments or contact performing lab Unknown, [place] * POST CHEMISTRY (04/25/2024) Only the most recent of3 resultswithin the time period is included. BUN Post Dialysis 15 6 - 19 mg/dL [facility] 04/25/2024 04/30/2024 10: 29 AM EST Narrative [facility] - 04/30/2024 Unless otherwise specified, test(s) performed at: [facility], [address] [place] [address] RESIDENTIAL INSTRUCTOR: Ben Conklin M.D. For any questions, please call customer service at FREQUENCY:OTHER Resulting Agency Comment Specimen source: Plasma Kolton Ignacio MD LAB BLOOD ORDERABLES Final Re sult [facility] See order comments or contact performing lab Unknown, [place] * [facility] Results (04/25/2024) Only the most recent of3 resultswithin the time period is included. [facility] eKt/V ([place]) 1.60 [facility] nPCR_HD 1.39 [facility] Center eKdrt/V 1.62 [facility] eKt/V [facility] 1.62 [facility] spKt/V Gotch 1.87 [facility] ge Center eNPCR 1.[address] [facility] PCR 75.54 Knowledge Center WSTDKT/V 2.[address] [facility] spKt/V (Daugirdas II) 1.83 [facility] 04/25/2024 04/25/2024 [facility] [place] [place] LAB BLOOD ORDERABLES Final Result Performing Organization Address City/[facility]/ZIP Co de Phone Number [facility] Contact Performing lab Unknown, [place] * (ABNORMAL) SPECIAL CHEMISTRY (04/16/2024) Only the most recent of2 resultswithin the time period is included. [facility] Vitamin D, 25-OH, Total 22.3(L) 30.0 - 100.0 ng/mL [facility] Comment: Please Note:? Effective January 16, 2023, the methodology for this test has changed to the [facility]. 04/16/2024 04/17/2024 8:1 5 AM EST Narrative [facility] - 04/17/2024 Unless otherwise specified, test(s) performed at: [facility], [address] [place] [id number] RESIDENTIAL INSTRUCTOR: Ben Conklin, M.D. For any questions, please call customer service at FREQUENCY:OTHER Resulting Agency Comment Specimen source: Serum us Kolton Ignacio MD LAB BLOOD BANK TEST ORDERABLE S Final Result [facility] See order comments or contact performing lab Unknown, [place] from Last 3 Months Insurance MEDICARE MEDICAID [place] Care Teams Sand Carrier Relationship Specialty Start Date End Date Name, MD Abdiel [address] [place] [id number] [facility] - General 01/22/19
--- OUTSIDE RECORDS SUMMARY | 2024-05-22 09:45 | XMS_ITS | Encounter Summary ---
Author Organization [facility] Address [address] [facility] [address] [place] [address] Care Team Providers Care Salt Manager Name Role Phone Name, Abdiel COX Primary Care Provider [phone] Reason for Visit * Reason Onset Date Comments Med Change Request Med Refill 11/01/2023 Patient son walk ed in stating insulin prescribed yesterday they don't have it in the pharmacy [facility] , Patient son is requesting a different insulin to be sent to [facility] patient needs to insulin today. Any questions call [phone] Christopher Inman Encounter Details Date Type Department Care Team (Late st Contact Info) Description 11/01/2023 Refill [facility] [address] [place], [place] [phone] Name, MD Abdiel [address] [place] [address] Type 2 diabetes mellitus with chronic kidney disease on chronic dialysis, with long-term current use of insulin ([facility]) Social History Tobacco Use Types Packs/Day Years [...] encounter Miscellaneous Notes * Telephone Encounter - Cyndi Osorio - 11/02/2023 12:26 PM EDT Patient son walked in stating insulin prescribed yesterday they don't have it in the pharmacy [facility] , Patient son is requesting a different insulin to be sent to [facility] patient needs to insulin today. Any questions call [phone] Christopher Inman documented in this encounter Plan of Treatment Upcoming Encounters Date Type Department Care Team (Late st Contact Info) Description 05/28/2024 10:45 AM EDT Office Visit [facility] [address] [place] [address] Name, MD Abdiel [address] [place] [address] 07/12/2024 3:15 PM EDT Office Visit [facility] [address] [place] [address] Saulo Cerna MD [address] [place] [address] 07/24/2024 11:00 AM EDT Office Visit [facility] [address] [place] [address] Andra Stanley, OD [address] [place] [address] documented as of this encounter Visit Diagnoses Diagnosis Type 2 diabetes mellitus with chronic kidney disease on chronic dialysis, with long-term current use of insulin ([facility]) documented in this encounter Additional Health Concerns Assessment Noted Time PHQ-9 Depression Total Score: 0 07/07/19 23 9:53 AM EDT documented as of this encounter Care Teams Salt Manager Relationship Specialty Start Date End Date Name, MD Abdiel [address] [place] [address] PCP - General Family Medicine 03/20/18 documented as of this encounter
--- OUTSIDE RECORDS SUMMARY | 2024-05-22 09:46 | XMS_ITS | Encounter Summary ---
Author Organization [facility], Address [address] [place] [address] Phone Care Team Providers Care Atmospheric Technician Name Role Phone Name, Abdiel COX Primary Care Provider [phone] Encounter Details Date Type Department Care Team (Late st Contact Info) Description 04/23/2024 Treatment [facility], [address] [place] [phone] Kadie Norris FNP-C [address] [place] [address] [place] [address] Social History Tobacco Use Types Packs/Day Years [...] encounter Miscellaneous Notes * Dialysis Note - Kadie Norris FNP-C - 04/23/2024 12:00 AM EST Patient: David De La Rosa : 1940 [facility] Note Type: Dialysis Rounds-Basic Service Date: 04/23/2024 This patient was personally seen for a basic visit as part of routine monthly dialysis care for end stage renal disease. Attending Wood And Hardware Outfitter: KRISTY RODRIGUEZ Dialysis Location: [facility] Schedule: Shift: 2 HOME MEDICATIONS Current [facility] Outpatient Medications acetaminophen 325 mg capsule [...] tablet by mouth twice a day. Current [facility] Allergies Allergen: No Known Allergies Allergen: No Known Allergies Allergen: No Known Drug Allergies Allergen: No Known Drug Allergies Allergen: No Known Food Allergies Allergen: No Known Food Allergies DIALYSIS PRESCRIPTION Treatment Data Treatment Date: 04/23/2024 started at: 10:17 AM Dialysate / Machine Temp (prescribed): 36.0*C Dialysate / Machine Temp (actual): 35.8*C BFR (prescribed): 450 BFR (average delivered): 340 DFR (prescribed): Manual 500 DFR (average delivered): 500 Prescribed Time: 04:00 Actual Time: 04:03 EDW (kg): 68.5 Dialyzer: 160NRe Optiflux Dialysate: 2.0 K, 2.5 Ca, 1.0 Mg, 100 Dextrose (G2251) Sodium: 138 Bicarb: 33 Pre Dialysis Vitals Pre BP Sit: 125/86 Pre Wt (kg): 71.9 EDW Deviation (kg): 3.4 Temp: 97.9*F Post Dialysis Vitals Post BP Sit: 192/81 Post Wt (kg): 69.9 TREATMENT MEDICATIONS ORDERS Heparin Sodium (Porcine) 1,000 Units/mL Systemic 3000 units IVP Every Treatment 03/14/2024 - 03/13/2025 Vitamin D (Calcitriol) Oral 0.50 mcg ORAL Every Treatment 04/11/2024 - 04/10/2025 BP AND FLUID ASSESSMENT Post BP Sit 192/81 - 04/23/2024 169/72 - 04/20/2024 142/71 - 04/18/2024 Post Wt (kg) 69.9 - 04/23/2024 68.1 - 04/20/2024 69.0 - 04/18/2024 EDW (kg) 68.5 - 04/23/2024 68.5 - 04/20/2024 68.5 - 04/18/2024 Deviation (kg) 1.4 - 04/23/2024 -0.4 - 04/20/2024 0.5 - 04/18/2024 ADEQUACY ASSESSMENT Missed Treatments 0 - Last 30 days 0 - Last 60 days spKt/V (Daugirdas II) 1.83 (03/21/24) 2.01 (02/22/24) 1.90 (01/25/24) eKdrt/V 1.61 (03/21/24) 1.79 (02/22/24) 1.68 (01/25/24) % Urea Reduction 78 (03/21/24) 81 (02/22/24) 80 (01/25/24) BUN 58 (03/21/24) 53 (02/22/24) 69 (01/25/24) BUN Post Dialysis 13 (03/21/24) 10 (02/22/24) 14 (01/25/24) Creatinine 10.99 (04/04/24) 10.07 (03/07/24) 10.01 (02/08/24) Bicarbonate (CO2) 23 (04/04/24) 25 (03/07/24) 25 (02/08/24) Sodium 138 (04/04/24) 137 (03/07/24) 139 (02/08/24) ACCESS ASSESSMENT AVFistula Unknown Left Upper Arm Active (In Use) - 03/06/2019 Placed - 01/21/2019 Access Flow 1360 (04/23/24) 1798 (04/06/24) > 2000 (03/26/24) ANEMIA ASSESSMENT Hemoglobin 11.4 (04/18/24) 11.4 (04/11/24) 11.2 (04/04/24) Iron Saturation (TSat) 45 (04/04/24) 22 (03/07/24) [...] reviewed. Dietary adjustments made in conjunction with yard hostler. Signed by: KADIE NORRIS FNP-C on 04/24/2024 at 07:23:28 AM Transcribed by: KADIE NORRIS FNP-C on 04/24/2024 at 07:23:28 AM documented in this encounter Plan of Treatment Upcoming Encounters Date Type Department Care Team (Late st Contact Info) Description 08/09/2024 10:00 AM EDT Procedure visit [facility] [address] [place] [address] documented as of this encounter Visit Diagnoses Not on filedocumented in this encounter Care Teams Atmospheric Technician Relationship Specialty Start Date End Date Name, MD Abdiel [address] [place] [id number] PCP - General 01/22/19 documented as of this encounter
--- OUTSIDE RECORDS SUMMARY | 2024-05-22 09:46 | XMS_ITS | Encounter Summary ---
Author Organization [facility], Address [address] [place] [address] Phone Care Team Providers Care Veneer Taping Machine Offbearer Name Role Phone Name, Abdiel COX Primary Care Provider [phone] Encounter Details Date Type Department Care Team (Late st Contact Info) Description 05/07/2024 Treatment [facility], [address] [place] [phone] Kadie Slater FNP-C [address] [place] [address] [place] [address] Social History Tobacco Use Types Packs/Day Years [...] Miscellaneous Notes * Dialysis Note - Kadie Slater FNP-C - 05/07/2024 12:00 AM EST Patient: David Inman Rj, 1940, 84y, M Dialysis Location: [facility] Attending Fiber Analyst: Kolton Ignacio Service Date: 05/07/2024 Service Provider: Kadie Slaetr NP I met face to face with the patient today. 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 Hyperglycemia, unspecified Admission Date 10/04/23 Discharge Date 10/12/23 DIALYSIS PRESCRIPTION IHD 3x Week Start date: 05/04/24 Dialyzer: 160NRe Optiflux BFR: 450 DFR: Manual 500 Potassium: 2.0 Sodium: 138 EDW: 68.5 Duration: 4:00 Calcium: 2.5 Bicarb: 33 Rx updated on: 05/04/2024 TREATMENT ASSESSMENT BP Stand Pre 05/04/2024: 167/76 05/02/2024: 130/65 04/30/2024: 129/63 BP Sit Pre 05/04/2024: 162/68 05/02/2024: 140/70 04/30/2024: 149/72 BP Stand Post 05/04/2024: 146/65 05/02/2024: 160/69 04/30/2024: 147/72 BP Sit Post 05/04/2024: 162/76 05/02/2024: 147/77 04/30/2024: 157/71 Tx Duration 05/04/2024: 4:00 05/02/2024: 4:01 04/30/2024: 4:02 Missed Treatments 0 - last 30 days 0 - last 60 days FLUID ASSESSMENT EDW (kg) 05/04/2024: 69.0 05/02/2024: 69.0 04/30/2024: 69.0 Weight Pre (kg) 05/04/2024: 69.6 05/02/2024: 70.0 04/30/2024: 71.6 Weight Post (kg) 05/04/2024: 67.3 05/02/2024: 68.1 04/30/2024: 69.4 PWV (kg) 05/04/2024: -1.7 05/02/2024: -0.9 04/30/2024: 0.4 UF Rate (mL/kg/hr) 05/04/2024: 8.5 05/02/2024: 6.9 04/30/2024: 7.9 ADEQUACY ASSESSMENT spKt/V, URR 04/25/2024: 1.83, 78.0 03/21/2024: 1.83, 78.0 02/22/2024: 2.01, 81.0 ACCESS ASSESSMENT Access Type: AVFistula Access SubType: Unknown Access Status: Active (In Use) - 03/06/2019 Access Location: Left Upper Arm Created: 01/21/2019 Flow 04/23/2024: 1360 04/06/2024: 1798 03/26/2024: >2000 ANEMIA ASSESSMENT HGB 05/02/2024: 10.4 04/25/2024: 10.9 04/18/2024: 11.4 Ferritin 04/04/2024: 885.0 03/07/2024: 909.0 02/08/2024: 1067.0 Mircera, IVP (mcg) 03/18/2024: 75 03/05/2024: 30 Iron Sucrose (Venofer) (mg) 03/21/2024: 100 03/18/2024: 100 03/16/2024: 100 BMM ASSESSMENT PTH, Intact 04/04/2024: 1174.0 03/07/2024: 794.0 02/08/2024: 894.0 Calcium, Phosphorus 04/04/2024: 8.7, 4.4 03/11/2024: -, 5.6 03/07/2024: 9.1, 7.4 Vitamin D (Calcitriol) Oral (mcg) 05/04/2024: 0.50 05/02/2024: 0.50 04/30/2024: 0.50 Cinacalcet (Sensipar) (mg) 03/11/2024: 30 02/24/2024: 30 02/17/2024: 30 NUTRITION ASSESSMENT Potassium, Albumin 04/04/2024: 4.9, 4.2 03/07/2024: 4.7, 4.0 02/08/2024: 5.4, 4.1 eNPCR 04/25/2024: 1.22 03/21/2024: 1.05 02/22/2024: 1.03 DIAGNOSIS Chief Complaint: N18.6 End stage renal disease Comments: Pt seen and examined. Access patent. VS noted. RRR with S1 and S2. LS CTA Bilaterally. nocomplaints today. Patient is stable. Patient data updated 05/07/2024 at 2:17 PM Signed By: Kadie Slater NP on 05/07/2024 2:17:25 PM documented in this encounter Plan of Treatment Upcoming Encounters Date Type Department Care Team (Late st Contact Info) Description 08/09/2024 10:00 AM EDT Procedure visit [facility] [address] [place] [address] documented as of this encounter Visit Diagnoses Not on filedocumented in this encounter Care Teams Veneer Taping Machine Offbearer Relationship Specialty Start Date End Date Name, MD Abdiel [address] [place] [id number] PCP - General 01/22/19 documented as of this encounter
--- OUTSIDE RECORDS SUMMARY | 2024-05-22 09:46 | XMS_ITS | Encounter Summary ---
Author Organization [facility], Address [address] [place] [address] Phone Care Team Providers Care Workers Compensation Examiner Name Role Phone Name, Abdiel COX Primary Care Provider [phone] Encounter Details Date Type Department Care Team (Late Contact Info) Description 05/02/2024 Orders Only [facility] [address] [place] [phone] Kolton Ignacio MD [address] [facility] [place] [phone] Social History Tobacco Use Types Packs/Day Years [...] visit [facility], - [facility] [address] [place] [address] [place] [phone] documented as of this encounter Procedures Procedure Name Priority Date/Time Associated Diagnosis Comments HEMATOLOGY Routine 05/02/2024 documented in this encounter Results * (ABNORMAL) HEMATOLOGY (05/02/2024) Hemoglobin 10.4(L) 14.0 - 18.0 g/dL [facility] Hemoglobin x 3 31.2(L) 42.0 - 54.0 % [facility] 05/02/2024 05/04/2024 12: 01 PM EST Narrative [facility]IT - 05/04/2024 Unless otherwise specified, test(s) performed at: [facility] [address] [place] [address] HEMSTITCHER: Ben Conklin M.D. For any questions, please call customer service at FREQUENCY:OTHER Resulting Agency Comment Specimen source: Blood us Kolton Ignacio MD LAB BLOOD ORDERABLES Final Re sult [facility] See order comments or contact performing lab Unknown, [place] documented in this encounter Visit Diagnoses Not on filedocumented in this encounter Care Teams Workers Compensation Examiner Relationship Specialty Start Date End Date Name, MD Abdiel [address] [place] [address] PCP - General 01/22/19 documented as of this encounter
--- OUTSIDE RECORDS SUMMARY | 2024-05-22 09:46 | XMS_ITS | Encounter Summary ---
Author Organization [facility] Address [address] [place] [address] [address] [place] [address] Care Team Providers Care Extension Educator Name Role Phone Name, Abdiel COX Primary Care Provider [phone] Encounter Details Date Type Department Care Team (Late st Contact Info) Description 04/18/2022 Orders Only [facility] [address] [place] [phone] Dodie Bacon LPN Social History Tobacco Use Types Packs/Day Years Used Date Smoking Tobacco: Never Assessed Sex and Gender Information Value Date Recorded [...] Description 05/28/2024 10:45 AM EDT Office Visit [facility] [address] [place] [address] Name, MD Abdiel [address] [place] [phone] 07/12/2024 3:15 PM EDT Office Visit [address] [address] Saulo Cerna MD [address] [place] [phone] 07/24/2024 11:00 AM EDT Office Visit [facility] [address] [place] [address] Andra Stanley, OD [address] [place] [address] documented as of this encounter Visit Diagnoses Not on filedocumented in this encounter Care Teams Extension Educator Relationship Specialty Start Date End Date Name, MD Abdiel [address] [place] [address] PCP - General Family Medicine 03/20/18 documented as of this encounter
--- OUTSIDE RECORDS SUMMARY | 2024-05-22 09:46 | XMS_ITS ---
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 CORONARY ARTERY WITHOUT ANGINA PECTORIS (I25.10 - ICD-10-CM) ACTIVE 10/12/2023 ANEMIA IN OTHER CHRONIC DISE ASES CLASSIFIED ELSEWHERE (D63.8 - ICD-10-CM) ACTIVE 10/12/2023 HYPERGLYCEMIA, UNSPECIFIED (R73.9 - ICD-10-CM) ACTIVE 10/12/2023 Encounters Encounter Performer Performer Role Encounter Diagnoses Location Date Discharge - Discharged to home or self care - Home - Private home/apt. with no home health services [facility] 4 06:25 pm EDT - 4 02:57 pm EDT Immunizations Vaccine Date Influenza Social History
--- OUTSIDE RECORDS SUMMARY | 2024-05-22 09:46 | XMS_ITS | Encounter Summary ---
Author Organization [facility], Address [address] [place] [address] Phone Care Team Providers Care Rubber Stamps And Dies Supervisor Name Role Phone Name, Abdiel COX Primary Care Provider [phone] Encounter Details Date Type Department Care Team (Latest Contact Info) Description 05/10/2024 10:00 AM EST Procedure visit [facility], - [facility] Access Center [address] [place] [phone] Luisito Artis MD [address] [place] [address] [place] [phone] End stage renal disease (HCC) (Primary Dx); Stenosis of other vascular prosthetic devices, implants and grafts, initial encounter (HCC) Social History Tobacco Use Types Packs/Day Years [...] on file documented as of this encounter Last Filed Vital Signs Vital Sign Reading [...] Mass Index 23.81 05/10/2024 9:27 AM EST documented in this encounter Progress Notes * Ellie Virgen - 05/10/2024 10:00 AM EST VAC Nurse Pre-Op Form Arrival time: 914 Vitals: 05/10/24 09 BP: 162/72 BP Location: Right upper arm Patient Position: Sitting Pulse: 71 Resp: 16 Temp: 98.3 ??F SpO2: 95% Weight: 152 lb (68.9 kg) Height: 5' 7 (1.702 m) Pre-Procedure Checklist: Patient ID Confirmed: [x] Yes [] No Questionnaire Reviewed: [x] Yes [] No Jewelry Removed: [] Yes [] No [x] N/A Dentures Removed: [] Yes [x] No [] N/A Food, alcohol, pain meds, sedatives in last 8 hours: [] Yes [x] No Procedure Verified by Patient: [x] Yes [] No [x] Fistulagram [] Angioplasty [] Thrombectomy [] BAM [] Stent Placement [] Ligation [] Catheter Placement [] Catheter Replacement [] Portacath Placement [] Portacath Removal [] Venogram [] Peritoneal dialysis catheter insertion. [] Peritoneal dialysis catheter removal. Acknowledgements and Consent for Care/Treatment/Procedure/Anesthesia Signed: [x] Yes [] No Problem and medication list updated: [x] Labs Reviewed: Glucose Results (Point of Care) if applicable: Time: 919 Result: 120 Platelets Date Value Ref Range Status 02/18/2019 322 130 - 400 x10-3/uL Final Potassium Date Value Ref Range Status 04/04/2024 4.9 3.5 - 5.1 mEq/L Final INR Date Value Ref Range Status 01/14/2019 1.05 Final Patient arrived: [] Ambulatory [x] Ambulatory/cane [] Ambulatory/walker [] Via wheelchair [] Via stretcher Mental Status: [x] A&O x3 [] Lethargic [] Dementia [] Confused Lungs: [x] Lungs clear bilaterally [] Right []Clear []Absent [] Diminished []Rales []Rhonchi []Wheezing []Rub [] Left []Clear []Absent [] Diminished []Rales []Rhonchi []Wheezing []Rub Heart: [x] Regular rate [] Regular rate with murmur [] Irregular rate [] Irregular rate with murmur Access Type: [x] AV Access [] Central Venous Catheter [] Port [] Peritoneal Catheter [] None Location: [x] Left [] Right [x] Arm [] Thigh [] Chest [] Groin [] Abdomen [] Left [] Right [] Arm [] Thigh [] Chest [] Groin [] Abdomen Access Assessment: [] Thrill present [x] Pulsatile thrill present [] Thrombosed [x] Aneurysmal [x] No signs of infection Distal pulse to surgical site: [] Right. [x] Left. [] Brachial. [x] Radial. [] DP. [] PT. [] Popliteal. [x] Present. [] Weak. [] Absent. [] Doppler. Peritoneal Catheter insertion: [] Fleets enema 2-3 hrs prior to arrival [] Voided prior to entering OR [] Grounding pad placed on thigh IV Site: []Left []Right []Dorsum of hand []Forearm []Wrist []Antecubital Angio size: []22G []18G Medications Administered: [x] Cephalexin 500 mg po @ 0855 ([facility]#[id number]) [] Clindamycin 300 mg po @ ([facility]#[id number]) [] Cefazolin slow IVP 1 gm (wgt<60 kg) @ ([facility]#[id number]) [] Cefazolin slow IVP 2 gm (wgt 60-120 kg) @ ([facility]#[id number]) [] Cefazolin slow IVP 3 gm (wgt > or = 120 kg) @ ([facility]#[id number]) [] Clindamycin 600 mg in 50 ml NS IV over 20 minutes @ ([facility]#[id number]) [] Vancomycin 1 GM IV over 1 hour @ ([facility]#[id number]) Site marked: [x] L hand Marked by: [x]Juan F Virgen RN []Gissel Arias RN [] Ani Bashir RN Notes: Immediately upon arrival to waiting room, pt was screened for COVID. All responses to COVID screening questions were answered negative. Patient temperature was checked and was noted to be WNL (see vital sign section in EHR for details). Pt then brought to pre-op room. Pt presents for 13 week access eval with possible fistulagram. Procedure explained, consents signedand witnessed. Denies problems at HD. Recent hosp at [facility] 04/30-05/01 influenza, states feeling much better now. Report given to: []Juan F Virgen RN []Gissel Arias RN [] Ani Virgen * Ellie Virgen - 05/10/2024 10:00 AM EST VAC NURSING INTRA-OP FORM Events Record: TIME Time in OR 0957 Time out called 1016 Anesthesia start 1020 Procedure start 1017 Procedure end 1029 Time out of OR 1031 Anesthesia end 1031 Surgeon: [x] Steff. [] Ta. [] [facility]. Circulating RN: [x] Promise [] Hugo [] Mckay Stevedoring Supervisor: [x] Kylee. [] Mckay [] Haider. chemistry research assistant: [] Milton. [] Haider. [x] Long. [] Alatorre. Anesthesia: [x] Kurbanov. [] Chappell. [] [facility]. Safety Checks: Pre-procedure counts of sponges, sharps and instruments: [x] Yes [] N/A PPE verified: [x] Yes [] N/A Supine position: [x] Yes [] N/A Pillow under knees and safety strap on: [x] Yes [] N/A Grounding pad: ESU setting 30/30 Blend 2: [] Yes [x] N/A Grounding pad location: [] left flank. [] right flank. [] left thigh. [] right thigh. Site marking verified/ correct site during time-out [x] Xray in Use light turned on: [x] Yes [] N/A Fire Risk Assessment: Alcohol-based skin antiseptic: [x] Yes [] No Surgical site above xiphoid: [] Yes [x] No Oxygen being administered: [] Yes [x] No Electrosurgical unit being used: [] Yes [x] No Skin Prep: Duraprep: [x] Yes Chloraprep: [] Yes 70% Isopropyl Alcohol: [] Yes Final Count Correct: [x] Yes [] N/A Implant: [] Yes [x] No [] CVC [] stent Indigo Mixer: Lot#1: Ref#: Date: Local type: [] Mix 1% xylocaine (5cc), 0.5% marcaine with epinephrine (5cc), and normal saline 0.9% (10cc) Total 1% xylocaine and 0.5% marcaine with epinephrine ml given: Total 1% xylocaine and 0.5% marcaine with epinephrine ml wasted: [] Mix 1% xylocaine with epinephrine (5cc), 0.25% marcaine (5cc), and normal saline 0.9% (10cc) Total 1% xylocaine with epinephrine and 0.25% marcaine ml given: Total 1% xylocaine with epinephrine and 0.25% marcaine ml wasted: [x] Mix lidocaine 1% plain (1cc), and normal saline 0.9% (1 cc) Total xylocaine 1% ml given: 0.5 Total xylocaine 1% ml wasted:0.5 Dye: [x] Optiray 320 [] Optiray 350 [] Omnipaque 350 Total ml given: 30 Total ml wasted:20 Radiation usage: 3.14 mGy Anesthesia used: [] None. [x] Local. [x] IV sedation. Procedure: [x] Fistulagram. [x] Angioplasty. [] Thrombectomy. [] BAM. [] Stent placement. [] Ligation. [] Catheter placement. [] Catheter replacement. [] Portacath placement [] Portacath removal. [] Venogram. [] Peritoneal dialysis catheter insertion. [] Peritoneal dialysis catheter removal. Patient transferred OR table: [x] Ambulatory. [] Wheelchair. [] Stretcher. Intra-operative Flow Sheet: Time 0957 1002 1007 1012 1017 1022 1027 BP 171/80 189/83 194/74 194/71 202/87 212/74 182/66 Heart rate 71 68 67 71 66 64 62 Rhythm Sr 1st degree hb inverted t wave pvcs Sr 1st degree hb inverted t wave pvcs Sr 1st degree hbinverted t wave pvcs Sr 1st degree hb inverted t wave pvcs Sr 1st degree hb inverted t wave pvcs Sr1st degree hb inverted t wave pvcs Sr 1st degree hb inverted t wave pvcs Resp rate 12 14 12 11 16 14 12 O2 sat 97 97 97 98 97 98 95 LOC a a a a a a b Pain scale 0 0 0 0 0 0 0 Time 1020 Total Given Total Wasted Given By Versed mg 1 1 1 Kurbanov Response 2 Fentanyl mcg 50 50 50 Kurbanov Response 2 Time BP Heart rate Rhythm Resp rate O2 sat LOC Pain scale Time Total Given Total Wasted Given By Versed mg Response Fentanyl mcg Response Legend: LOC: A = Awake B = Drowsy but awake and responds appropriately to voice C = Slow to arouse and responds appropriately to touch D = Difficult to arouse and responds inappropriately to stimulation Pain scale: 0 (no pain) ... 5 (moderate pain) ... 10 (severe pain) Response to medication: 1 = no effect 2 = moderate effect 3 = effective Nurses Notes: Time Note 0857 Pt assisted on OR table and prepped in usual manner. [address] Artis aware. No interventions. 1031 Pt tolerated procedure well, transferred to recovery via cardiac chair Ellie Virgen * Ellie Virgen - 05/10/2024 10:00 AM EST VAC NURSING RECOVERY FORM Arrival time: 1030 Transferred to recovery room via: [x] cardiac chair. [] stretcher. [] wheelchair. [] ambulatory Report given by: [] Promise [] Hugo. [] Mckay. Anesthesia: [x] local. [x] IV conscious sedation. [] none. Position of patient: [] Supine. [x] Fowlers. [] T-Soriano Skin: [x] Warm. [] Cool. [x] Dry. [] Diaphoretic. Breath sounds equal & clear: [x] Yes. [] No. (see comment in nursing note below). IV site: [x] N/A [] Patent. [] Clean& dry. [] Erythema. Surgical dressing site: [x] Left. [] Right. [x] Arm. [] Leg. [] Neck. [] Chest. [] Abdomen. [] Left. [] Right. [] Arm. [] Leg. [] Neck. [] Chest. [] Abdomen. Surgical dressing dry and intact: [x] Yes. [] No. (see comment in nursing note below). AV access: [] Thrill present. [x] Pulsatile thrill. [] Thrombosed. [] N/A Distal pulse to surgical site: [] Right. [x] Left. [] Brachial. [x] Radial. [] DP. [] PT. [] Popliteal. [x] Present. [] Weak. [] Absent. [] Doppler. Nausea on arrival: [] Yes. [x] No. IV Fluid given: 0.9% NaCl [x] N/A [] ml 0.9% NaCl with 1 gram Vancomycin [x] N/A [] ml Medications: Time Drug/Dose Route Response []Effective []Mod effective []No effect []Effective []Mod effective []No effect Time 1031 1046 1101 BP 174/81 171/89 174/75 Heart rate 67 71 62 Heart Rhythm Sr 1st degree hb inverted t wave pvcs Sr 1st degree hb inverted t wave pvcs Sr 1st degree hb inverted t wave pvcs Resp rate 14 12 12 O2 sat 94 96 95 LOC a a a Pain scale 0 0 0 Legend: LOC: A = Awake; B = Drowsy but awake and responds appropriately to voice; C = Slow to arouse and responds appropriately to touch; D = Difficult to arouse and responds inappropriately to stimulation Pain scale: 0 (no pain) ... 5 (moderate pain) ... 10 (severe pain) Functional Status Score Admit Discharge Activity 2 2 2=Moves all extremities voluntarily or on command, 1=Moves two extremities, 0=Unable to move extremities Respirations 2 2 2=Breathes deeply and coughs freely, 1=Dyspneic, shallow, or limited breathing, 0=Apnea Circulation 2 2 2=BP + 20mm of preanesthetic level, 1=BP + 20-50mm of preanesthetic level, 0=BP + 50mm preanesthetic level Consciousness 2 2 2=Fully awake, 1= Arousable on calling, 0=Not responding O2 Saturation 2 2 2=SpO2 >92% on room air, 1=Supplemental O2 required to maintain SpO2 >90%, 0=SpO2 <92% with O2 supplementation TOTAL 10 10 SCORE >9 REQUIRED FOR DISCHARGE Discharge Checklist YES NO N/A COMMENTS Nausea/vomiting [] [x] [] Taking nourishment without problem [x] [] [] Pain Controlled [x] [] [] IV removed [] [] [x] Prescriptions given & reviewed [] [] [x] Reconciled medication/ allergy list given to patient. [] [] [] [x] Pt declined list due to already having a current list. Discharge instructions reviewed with stated understanding. [x] [] [] Discharge criteria met [x] [] [] Nurses Notes: Time Note 1031 Pt arrived to recovery A&O X 3. 1105 Dr Chappell present in recovery and cleared pt for discharge. Pt assisted with dress and discharged home. Discharged to: [x]Home. []Halfway. []Hospital. []Dialysis. Accompanied by: [] Spouse. [x] Family. [] Friend. [] Van service. [] Ambulance. [] Staff. Discharge time: 1105 Discharged via: [x] Wheelchair. [] Stretcher. [] Ambulatory. [] Ambulance. documented in this encounter H&P Notes * Luisito Artis MD - 05/10/2024 10:00 AM EST Images from the original note were not included. HISTORY AND PHYSICAL DATE: 05/10/24 HPI: This patient returns today for evaluation of their hemodialysis access. On examination, the access is malfunctioning: pulsatile. Because of the documented findings on physical exam of the access today, I recommend a fistulagram of the access (and treatment based upon the findings from the fistulagram).. Patient Questionnaire Reviewed. Vitals: 05/10/24 0927 BP: 162/72 BP Location: Right upper arm Patient Position: Sitting Pulse: 71 Resp: 16 Temp: 98.3 ??F SpO2: 95% Weight: 152 lb (68.9 kg) Height: 5' 7 (1.702 m) Physical Exam: General: (alert, distress, habitus) within normal limits Neck: (tone, JVD) within normal limits Resp: (effort, auscultation) within normal limits CV: (S1/S2/murmur) within normal limits Pulses: left radial palpable Dialysis Access: left arm pulsatile access Problem List: Patient Active Problem List Diagnosis Anemia in chronic kidney disease Chronic kidney disease stage 3 (HCC) Dependence on renal dialysis (HCC) End stage renal disease (HCC) Gout Hypercholesterolemia Hyperparathyroidism (HCC) 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) Hypertensive heart disease without congestive heart failure Proteinuria 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) Serum creatinine above reference range Melanoma carcinomatosis (HCC) Back pain Benign essential hypertension Chronic cough Chronic kidney disease stage 5 due to type 2 diabetes mellitus (HCC) Chronic pain Epistaxis Malignant melanoma of foot (HCC) Osteoarthritis of knee Peripheral vascular disease (HCC) Type 2 diabetes mellitus (HCC) Atherosclerotic heart disease of [place] coronary artery without angina pectoris Chronic obstructive pulmonary disease (HCC) Heart failure (HCC) History of coronary artery bypass grafting Ischemic cardiomyopathy Metabolic encephalopathy Presence of aortocoronary bypass graft Bilateral cataracts Procedure Assessment/Plan: Diagnosis: Malfunctioning dialysis access. Procedure/Plan: Fistulagram with possible angioplasty Anesthesia Assessment: ASA Status: Class 3 Airway: Class 3 Plan: local and IV conscious sedation documented in this encounter Miscellaneous Notes * Op Note - Luisito Artis MD - 05/10/2024 10:00 AM EST Images from the original note were not included. VAC Angiogram of Dialysis Access Procedure Date: 05/10/24 Preoperative Diagnosis: Malfunctioning dialysis access Postoperative Diagnosis: Malfunctioning dialysis access Procedure: Needle cannulation of dialysis access. Angiogram dialysis access: left arm Percutaneous balloon angioplasty of: Intra-access and subclavian/inominate vein . Anesthesia: local and sedation Procedure Description: After obtaining informed consent, the patient was placed on the operating table in supine position.EKG, BP and continuous oxygen saturation monitoring were performed. The operative site was prepped and draped in the usual sterile fashion. The access was cannulated on the arterial side. An angiogram was performed to visualize the inflow artery, the access, the outflow draining veins (peripheral and central) and the vena cava. A guide wire was inserted followed by a percutaneous angioplasty balloon catheter. Angioplasty was performed as needed using a pressure syringe. A final angiogram was performed. The catheter(s) and sheath(s) were removed and hemostasis was achieved. Findings: Stenotic lesion(s) identified and balloon angioplasty(ies) were as follows: Site 1: Intra-access Percent stenosis: 50 Angioplasty balloon size: 10 mm Angioplasty result, percent residual stenosis: 20 Site 2: subclavian/inominate vein Percent stenosis: 70 Angioplasty balloon size: 10 mm Angioplasty result, percent residual stenosis: 10 EKG: sinus rhythm The flow in the access was assessed as good. Distal Pulse: palpable. Notes: Plan: Schedule for physical exam of the access and a possible fistulagram in 3 months. documented in this encounter Plan of Treatment Upcoming Encounters Date Type Department Care Team (Late st Contact Info) Description 08/09/2024 10:00 AM EDT Procedure visit [facility], - Vascular Access Center [address] [place] [phone] documented as of this encounter Visit Diagnoses Diagnosis End stage renal disease (HCC)- Primary End stage renal disease Stenosis of other vascular prosthetic devices, implants and grafts, initial encounter (HCC) documented in this encounter Care Teams Rubber Stamps And Dies Supervisor Relationship Specialty Start Date End Date Name, MD Abdiel [address] [place] [id number] PCP - General 01/22/19 documented as of this encounter
--- OUTSIDE RECORDS SUMMARY | 2024-05-22 09:46 | XMS_ITS | Encounter Summary ---
Author Organization [facility], Address [address] [place] [address] Phone Care Team Providers Care Records Management Assistant Name Role Phone Name, Abdiel COX Primary Care Provider [phone] Reason for Visit * Reason Comments Med Refill Encounter Details Date Type Department Care Team (Late st Contact Info) Description 04/09/2020 Refill [facility] [address] [place] [phone] Vinay Santiago MD [address] [facility] [place] [phone] Social History Tobacco Use Types Packs/Day Years Used Date Smoking Tobacco: Never Alcohol Use Standard Drinks/Week Comments No 0 (1 standard drink = 0.6 oz pur e alcohol) Sex and Gender Information Value Date Recorded Sex Assigned at Not on file Legal Sex Male 4:34 PM EST Gender Identity Not on file Sexual Orientation Not on file documented as of this encounter Plan of Treatment Upcoming Encounters Date Type Department Care Team (Late st Contact Info) Description 08/09/2024 10:00 AM EDT Procedure visit [facility] [address] [place] [phone] documented as of this encounter Visit Diagnoses Not on filedocumented in this encounter Care Teams Records Management Assistant Relationship Specialty Start Date End Date Name, MD Abdiel [address] [place] [address] PCP - General 01/22/19 documented as of this encounter
--- OUTSIDE RECORDS SUMMARY | 2024-05-22 09:46 | XMS_ITS | Encounter Summary ---
Author Organization [facility], Address [address] [place] [address] Phone Care Team Providers Care Director Insurance Name Role Phone Name, Abdiel COX Primary Care Provider [phone] Encounter Details Date Type Department Care Team (Late Contact Info) Description 05/09/2024 Orders Only [facility] [address] [place] [phone] Kolton Ignacio MD [address] [facility] [address] [place] [phone] Social History Tobacco Use Types Packs/Day Years [...] visit [facility], - Vascular Access Center [address] [place] [phone] documented as of this encounter Procedures Procedure Name Priority Date/Time Associated Diagnosis Comments IMMUNO CHEMISTRY Routine 05/09/2024 HEMATOLOGY Routine 05/09/2024 CHEMISTRY Routine 05/09/2024 CHEMISTRY Routine 05/09/2024 documented in this encounter Results * IMMUNO CHEMISTRY (05/09/2024) Hep B Surface Ag Negative Negative [facility] 05/09/2024 05/10/2024 9:0 1 AM EST Narrative Resulting Agency Comment Specimen source: Serum us Kolton Ignacio MD LAB BLOOD ORDERABLES Final Re sult [facility] See order comments or contact performing lab Unknown, [place] * (ABNORMAL) [facility] (05/09/2024) Creatinine 8.17(H) 0.60 - 1.30 mg/dL [facility] [...] 05/10/2024 Unless otherwise specified, test(s) performed at: [facility], [address] [place] [id number] LINEN FOLDER: Ben Conklin M.D. For any questions, please call customer service at FREQUENCY:MONTHLY Resulting Agency Comment Specimen source: Serum Kolton Ignacio MD LAB BLOOD ORDERABLES Edited R esult - Final [facility] See order comments or contact performing lab Unknown, [place] * (ABNORMAL) HEMATOLOGY (05/09/2024) WBC 5.10 4.80 - 10.80 1000/mcL [facility] RBC 3.11(L) 4.70 - 6.10 mill/mcL [facility] Hematocrit 30.3(L) 42.0 - 52.0 % [facility] MCV 97 80 - 100 fl [facility] MCH 33.3(H) 27.0 - 31.0 pg [facility] MCHC 34.2 30.0 - 36.0 g/dL [facility] RDW 13.2 11.5 - 14.5 % [facility] Hemoglobin 10.4(L) 14.0 - 18.0 g/dL [facility] Hemoglobin x 3 31.2(L) 42.0 - 54.0 % [facility] 05/09/2024 05/10/2024 9:0 9 AM EST Narrative [facility] - 05/10/2024 Unless otherwise specified, test(s) performed at: [facility], [address] [place] [id number] LINEN FOLDER: Ben Conklin M.D. For any questions, please call customer service at FREQUENCY:MONTHLY Resulting Agency Comment Specimen source: Blood Kolton Ignacio MD LAB BLOOD ORDERABLES Final Re sult [facility] See order comments or contact performing lab Unknown, [place] * (ABNORMAL) [facility] (05/09/2024) PTH 885(H) 16 - 80 pg/mL [facility] 05/09/2024 05/10/2024 8:5 8 AM EST Narrative [facility] - 05/10/2024 Unless otherwise specified, test(s) performed at: [facility], [address] [place] [id number] LINEN FOLDER: Ben Conklin M.D. For any questions, please call customer service at FREQUENCY:MONTHLY Resulting Agency Comment Specimen source: Plasma us Kolton Ignacio MD LAB BLOOD ORDERABLES Final Re sult [email or web address] See order comments or contact performing lab Unknown, [place] documented in this encounter Visit Diagnoses Not on filedocumented in this encounter Care Teams Director Insurance Relationship Specialty Start Date End Date Name, MD Abdiel [address] [place] [id number] PCP - General 01/22/19 documented as of this encounter
--- OUTSIDE RECORDS SUMMARY | 2024-05-22 09:46 | XMS_ITS | Encounter Summary ---
Author Organization [facility], Address [address] [place] [address] Phone Care Team Providers Care Trestle Mechanic Name Role Phone Name, Abdiel COX Primary Care Provider [phone] Reason for Visit * Reason Comments Med Refill Encounter Details Date Type Department Care Team (Late st Contact Info) Description 05/03/2019 Refill [facility] [address] [place] [phone] Vinay Santiago MD [address] [place] [phone] Social History Tobacco Use Types Packs/Day Years [...] visit [facility] [address] [place] [phone] documented as of this encounter Visit Diagnoses Not on filedocumented in this encounter Care Teams Trestle Mechanic Relationship Specialty Start Date End Date Name, MD Abdiel [address] [place] [address] PCP - General 01/22/19 documented as of this encounter
== END ==
LOC: HO.CARD 08:56
PROVIDERS: PCP Internal Medicine Geriatric Medicine; Visit Provider Internal Medicine Cardiovascular Disease
DX: I42.9 Cardiomyopathy, unspecified (principal)
CPT/HCPCS: 93308; Q9957

== ENCOUNTER → 2024-05-22 08:59 | Outpatient (BNV) | payer MEDICARE, MEDICAID, SELFPAY | PROVIDERS: PCP Internal Medicine Geriatric Medicine; Visit Provider Internal Medicine Cardiovascular Disease | DX: I42.8 Other cardiomyopathies (principal) | CPT/HCPCS: 93308; 93321 ==

== ENCOUNTER 2024-05-29 11:14 | Outpatient (AMB) | payer MEDICARE, MEDICAID, SELFPAY ==
--- NOTE | 2024-05-29 11:16 | MHC.OFFVIS ---
Vital Signs 05/29/24 11:17 Height 5 ft 7 in Weight 154 lb 5.177 oz BMI 24.2 BP 148/68 H Blood Pressure Location Lt brachial Position Sitting Pulse 78 Pulse Source Pulse Oximeter Intake Visit Reasons: 6 mth f/up Allergies No Known Allergies Allergy (Verified 08/28/23 14:05) Medication List - Last Reconciled 05/29/24 by Erickson Muir MD acetaminophen (Tylenol) 325 mg PO QID PRN albuterol sulfate 90 mcg/actuation 0 mcg inhalation aspirin 81 mg PO DAILY atorvastatin 20 mg PO DAILY carvedilol 25 mg PO BID fluticasone furoate-vilanterol 100-25 mcg/dose (Breo Ellipta) 1 ea inhalation DAILY ketotifen fumarate 0.025%(0.035%) (Alaway) 0 drps ophthalmic (eye) HPI Comments Details: David comes for follow-up of his coronary artery disease and ischemic cardiomyopathy. Recent echocardiogram shows xqvy-xw-[id number] LV systolic dysfunction with LVEF of 40-45%. He said his blood pressures been significantly elevated at home and sometimes blood pressure as high as 200. Blood pressure is also elevated during dialysis session like your both before and after dialysis. He said yesterday he was given her medication for treatment of high blood pressure but no chronic prescription was provided. He was no cardiac symptoms at current time. Denies any anginal symptoms. Denies any orthopnea, PND, leg edema. Denies any symptoms of claudications. No prolonged palpitation irregular heartbeat. He is currently concerned about his high blood pressure. [facility] Medical History Cardiomyopathy Dyspnea Asthma-COPD overlap syndrome Hiatal hernia Diabetes ESRD (end stage renal disease) Chronic restrictive lung disease GERD (gastroesophageal reflux disease) Chronic cough Social History Patient Tobacco Use Status: Never used Tobacco Review of Systems Const Denies weakness ENT Denies dizziness Card Denies chest pain, Denies chest pain with activity, Denies syncope, Denies rapid heart rate, Denies pedal edema, Denies edema, Denies leg edema, Denies lightheadedness, Denies palpitations, Denies dyspnea, Denies dyspnea on exertion and Denies orthopnea Resp Denies cough, Denies dyspnea and Denies dyspnea on exertion GI Denies hematochezia and Denies change in stool character Musc Denies abnormal gait, Denies muscle cramps, Denies muscle weakness, Denies numbness, Denies radiating pain into limb and Denies tingling Neuro Denies abnormal gait, Denies dizziness, Denies syncope, Denies numbness, Denies tingling and Denies weakness Endo Denies palpitations Physical Exam Vital Signs: Last Vital Signs Pulse 78 05/29/24 11:17 BP 148/68 H 05/29/24 11:17 BMI result Body Mass Index 24.2 Const General: cooperative, healthy appearing, comfortable and no acute distress Orientation/consciousness: patient oriented x3 Neck Neck: Yes normal visual inspection and Yes no JVD Resp Effort & Inspection: normal respiratory effort Auscultation: clear to auscultation bilaterally, no rales, no rhonchi and no wheezes Cardio Jugular venous distension: no JVD Rate: regular rate Rhythm: regular rhythm Heart sounds: S1 normal heart sound present, S2 normal heart sound present, Murmur heart sound present continuous (Probably related to AV fistula) at the right sternal border and systolic early and no rubs Neuro General: patient oriented x3 Extrem Other: right radial cath site well healed, easily palpable radial pulse, right hand assessment normal General: Yes normal to inspection Psych Appearance: grossly normal Mental Status: mental status grossly normal Speech and movement: Normal speech and movement present Assessment & Plan Assessment & Plan (1) Uncontrolled hypertension: Code(s): I10 - Essential (primary) hypertension Category: Medical Plan: Uncontrolled hypertension in this elderly gentleman with recent coronary artery disease status post coronary artery bypass grafting. He was significantly elevated blood pressure which loading will increase his risk of both cardiovascular as a different well as neurological complications. This requires aggressive treatment. He is currently on carvedilol 25 mg b.i.d.. Would add Norvasc 5 mg to his regimen given his renal insufficiency. Advised to monitor blood pressure at home maintain a log. Start with a keel follow up in 2 weeks with blood pressure check in the office along with his machine to correlate obtain blood pressures at home. Low-salt diet was discussed. Stress mitigation strategies were discussed (2) CAD (coronary artery disease): Code(s): I25.10 - Atherosclerotic heart disease of [place] coronary artery without angina pectoris Category: Medical Plan: CAD status post coronary artery bypass grafting. Currently not having any symptoms angina. Continue aggressive blood pressure control as above. Continue low-dose aspirin therapy for life. Continue statin therapy target goal LDL less than 70 mg/dL. Advised lipid panel in near future. (3) Cardiomyopathy: Code(s): I42.9 - Cardiomyopathy, unspecified Category: Medical Plan: Uprt-gz-idlslkfw LV systolic dysfunction secondary to ischemic cardiomyopathy. No signs or symptoms of heart failure most likely due to volume management by dialysis. Continue aggressive blood pressure control as above. Neurohormonal modulation with carvedilol. Mineral corticoid inhibitor therapy not indicated due to end-stage renal disease. Will follow up in the clinic in 6 months time, sooner p.r.n.. Thank you for allowing me to partake in his care Medications: New amlodipine 5 mg PO DAILY 30 tabs 5RF Coding Level of Care Code Est Pt Level 4 (53636) Complex EM visit Add On G2211 Diagnoses Uncontrolled hypertension I10 CAD (coronary artery disease) I25.10 Cardiomyopathy I42.9
[2024-05-29 11:17] VITALS: BP 148/68; PULSE 78; BMI 24.2
--- OUTSIDE RECORDS SUMMARY | 2024-05-29 13:15 | XMS_ITS | Encounter Summary ---
Author Organization [facility], Address [address] [place] [address] Phone Care Team Providers Care Flag Car Driver Name Role Phone Name, Abdiel COX Primary Care Provider Reason for Visit * Reason Comments Med Refill Encounter Details Date Type Department Care Team (Late Contact Info) Description 07/23/2020 Refill [facility] [address] [place] [address] Vinay Santiago MD [address] [place] [address] [place] [phone] Social History Tobacco Use Types Packs/Day Years [...] visit [facility], - [facility] [address] [place] [address] [place] [phone] documented as of this encounter Visit Diagnoses Not on filedocumented in this encounter Care Teams Flag Car Driver Relationship Specialty Start Date End Date Name, MD Abdiel [address] [place] [address] PCP - General 01/22/19 documented as of this encounter
--- OUTSIDE RECORDS SUMMARY | 2024-05-29 13:15 | XMS_ITS | Encounter Summary ---
Author Organization [employer] Address [address] [facility] 7t [place] [address] Care Team Providers Care Senior Major Gifts Officer Name Role Phone Name, Abdiel COX Primary Care Provider [phone] Encounter Details Date Type Department Care Team (Late st Contact Info) Description 06/27/2022 Orders Only [facility] PEDS [address] [place], [place] [phone] Lawanda Blanca LPN Social History Tobacco Use [...] Care Team (Late st Contact Info) Description 06/12/2024 10:30 AM EDT Office Visit [facility] MEDICINE [address] [place] [address] Name, MD Abdiel [address] [place] [address] 07/12/2024 3:15 PM EDT Office Visit [address] [address] Saulo Cerna MD [address] [place] [address] 07/24/2024 11:00 AM EDT Office Visit [facility] OPTOMETRY [address] [place] [address] Andra Stanley, OD [address] [place] [address] documented as of this encounter Visit Diagnoses Not on filedocumented in this encounter Care Teams Senior Major Gifts Officer Relationship Specialty Start Date End Date Name, MD Abdiel [address] [place] [address] PCP - General Family Medicine 03/20/18 documented as of this encounter
--- OUTSIDE RECORDS SUMMARY | 2024-05-29 13:16 | XMS_ITS | Encounter Summary ---
Author Organization [facility] Address [address] [place] [address] 7t [place] [address] Care Team Providers Care White Washer Piler Name Role Phone Name, Abdiel COX Primary Care Provider [phone] Encounter Details Date Type Department Care Team (Late st Contact Info) Description 04/18/2022 Orders Only [facility] MEDICINE [address] [place] [address] Dodie Bacon LPN Social History Tobacco Use [...] Description 06/12/2024 10:30 AM EDT Office Visit [facility] [address] [place] [address] Name, MD Abdiel [address] [place] [address] 07/12/2024 3:15 PM EDT Office Visit [address] [address] Saulo Cerna MD [address] [place] [address] 07/24/2024 11:00 AM EDT Office Visit [facility] OPTOMETRY [address] [place] [address] Andra Stanley, OD [address] [place] [address] documented as of this encounter Visit Diagnoses Not on filedocumented in this encounter Care Teams White Washer Piler Relationship Specialty Start Date End Date Name, MD Abdiel [address] [place] [address] PCP - General Family Medicine 03/20/18 documented as of this encounter
--- OUTSIDE RECORDS SUMMARY | 2024-05-29 13:16 | XMS_ITS | Encounter Summary ---
Author Organization [facility], Address [address] [place] [address] Phone Care Team Providers Care Retail Property Manager Name Role Phone Name, Abdiel COX Primary Care Provider [phone] Encounter Details Date Type Department Care Team (Late Contact Info) Description 05/23/2024 Orders Only [facility] [address] [place] [phone] Kolton Ignacio MD [address] [facility] [address] [place] [phone] Social History Tobacco Use Types Packs/Day Years [...] visit [facility] - [facility] Center [address] [place] [phone] documented as of this encounter Procedures Procedure Name Priority Date/Time Associated Diagnosis Comments HD KINETICS Routine 05/23/2024 POST CHEMISTRY Routine 05/23/2024 HEMATOLOGY Routine 05/23/2024 CHEMISTRY Routine 05/23/2024 Analyze Re LAB RESULTS Routine 05/23/2024 documented in this encounter Results * [facility] Lab Results (05/23/2024) Pathologist [facility] eNPCR 1.11 [facility] nPCR_HD 1.17 [facility] eKt/V Gotch 1.71 [facility] e Center spKt/V Gotch 1.97 [facility] PCR 63.99 [facility] eKdrt/V 1.71 [facility] spKt/V (Daugirdas II) 1.92 [facility] WSTDKT/V 2.7 [facility] eKt/V (Tattersall) 1.68 [facility] 05/23/2024 05/23/2024 [facility] Ordering Provider LAB BLOOD ORDERABLES Final Result [facility] Contact Performing lab Unknown, [place] * HD KINETICS (05/23/2024) Pathologist [facility] % Urea Reduction 80 65 - 80 % [facility] 05/23/2024 05/27/2024 11: 36 AM EDT Narrative Resulting Agency Comment Specimen source: Plasma Kolton Ignacio MD LAB BLOOD ORDERABLES Final Re sult [facility] See order comments or contact performing lab Unknown, [place] * POST CHEMISTRY (05/23/2024) Pathologist [facility] BUN Post Dialysis 12 6 - 19 mg/dL [facility] 05/23/2024 05/27/2024 11: 36 AM EDT Narrative [facility] - 05/27/2024 Unless otherwise specified, test(s) performed at: [facility], [address] [place] [address] PACKING HOUSE SUPERVISOR: Ben Conklin M.D. For any questions, please call customer service at FREQUENCY:OTHER Resulting Agency Comment Specimen source: Plasma Kolton Ignacio MD LAB BLOOD ORDERABLES Final Re sult Performing Organization Address [facility] de Phone Number [facility] See order comments or contact performing lab Unknown, [place] * (ABNORMAL) [facility] Chemistry (05/23/2024) BUN 59(H) 6 - 19 mg/dL [facility] 05/23/2024 05/24/2024 10: 21 AM EST Narrative [facility] - 05/24/2024 Unless otherwise specified, test(s) performed at: [facility], [address] [place] [address] PACKING HOUSE SUPERVISOR: Ben Conklin M.D. For any questions, please call customer service at FREQUENCY:OTHER Resulting Agency Comment Specimen source: Serum Kolton Ignacio MD LAB BLOOD ORDERABLES Final Re sult Performing Organization Address [facility] de Phone Number [facility] See order comments or contact performing lab Unknown, [place] * (ABNORMAL) HEMATOLOGY (05/23/2024) Hemoglobin 10.3(L) 14.0 - 18.0 g/dL [facility] Hemoglobin x 3 30.9(L) 42.0 - 54.0 % [facility] 05/23/2024 05/24/2024 10: 15 AM EST Narrative [facility] - 05/24/2024 Unless otherwise specified, test(s) performed at: [facility], [address] [place] [address] PACKING HOUSE SUPERVISOR: Ben Conklin M.D. For any questions, please call customer service at FREQUENCY:OTHER Resulting Agency Comment Specimen source: Blood Kolton Ignacio MD LAB BLOOD ORDERABLES Final Re sult Performing Organization Address [facility] de Phone Number [facility] See order comments or contact performing lab Unknown, [place] documented in this encounter Visit Diagnoses Not on filedocumented in this encounter Care Teams Retail Property Manager Relationship Specialty Start Date End Date Name, MD Abdiel [address] [place] [address] PCP - General 01/22/19 documented as of this encounter
--- OUTSIDE RECORDS SUMMARY | 2024-05-29 13:16 | XMS_ITS | Encounter Summary ---
Author Organization [facility], Address [address] [place] [address] Phone Care Team Providers Care Reclamation Worker Name Role Phone Name, Abdiel COX Primary Care Provider [phone] Encounter Details Date Type Department Care Team (Latest Contact Info) Description 05/10/2024 10:00 AM EST Procedure visit [facility], - [facility] Access Center [address] [place] [phone] Luisito Artis MD [address] [place] [address] [place] [phone] End stage renal disease (HCC) (Primary Dx); [...] Nurse Pre-Op Form Arrival time: 914 Vitals: 05/10/24926 BP: 162/72 BP Location: Right upper arm [...] [x] Cephalexin 500 mg po @ 0855 ([facility]#[id number]) [] Clindamycin 300 mg po @ ([facility]#[id number]) [] Cefazolin slow IVP 1 gm (wgt<60 kg) @ ([facility]#[id number]) [] Cefazolin slow IVP 2 gm (wgt 60-120 kg) @ ([facility]#[id number]) [] Cefazolin slow IVP 3 gm (wgt > or = 120 kg) @ ([facility]#[id number]) [] Clindamycin 600 mg in 50 ml NS IV over 20 minutes @ ([facility]#[id number]) [] Vancomycin 1 GM IV over 1 hour @ ([facility]#[id number]) Site marked: [x] L hand Marked by: [...] Denies problems at HD. Recent hosp at [facility] 04/30-05/01 influenza, states feeling much better now. [...] Anesthesia end 1031 Surgeon: [x] Steff. [] Chappell. [] [facility]. Circulating RN: [x] Promise [] Hugo [] Mckay Stacking Machine Operator: [x] Kylee. [] Mckay [] Haider. topographical field assistant: [] Milton. [] Haider. [x] Long. [] Alatorre. Anesthesia: [x] Kurbanov. [] Chappell. [] [facility]. Safety Checks: Pre-procedure counts of sponges, sharps [...] Yes [x] No [] CVC [] stent Mechanical Adjuster: Lot#1: Ref#: Date: Local type: [] Mix [...] dress and discharged home. Discharged to: [x]Home. []Long Term. []Hospital. []Dialysis. Accompanied by: [] Spouse. [x] [...] diabetes mellitus (HCC) Atherosclerotic heart disease of [place] coronary artery without angina pectoris Chronic obstructive [...] visit [facility] - [facility] [address] [place] [phone] documented as of this encounter Visit Diagnoses Diagnosis End stage renal disease (HCC)- Primary End stage renal disease Stenosis of other vascular prosthetic devices, implants and grafts, initial encounter (HCC) documented in this encounter Care Teams Reclamation Worker Relationship Specialty Start Date End Date Name, MD Abdiel [address] [place] [address] PCP - General 01/22/19 documented as of this encounter
--- OUTSIDE RECORDS SUMMARY | 2024-05-29 13:16 | XMS_ITS | Encounter Summary ---
Author Organization [employer] Address [address] [facility] 7t [place] [address] Care Team Providers Care Pastry Cook Apprentice Name Role Phone Name, Abdiel COX Primary Care Provider [phone] Reason for Visit * Reason Onset Date Comments Appointment Request 05/22/2024 Encounter Details Date Type Department Care Team ([facility] st Contact Info) Description 05/22/2024 Telephone [facility] MEDICINE [address] [place], [place] [phone] Name, MD Abdiel [address] [place], [place] [phone] Appointment Request Social History Tobacco Use Types [...] encounter Miscellaneous Notes * Telephone Encounter - Lawrence Mclaughlin - 05/22/2024 10:08 AM EST Tc from pt requesting to R/s Apt from 05/28/24. Son states that they Can't Make Apts on Tuesdays or . Contact pt Son at [phone] documented in this encounter Plan of Treatment Upcoming Encounters Date Type Department Care Team (Late st Contact Info) Description 06/12/2024 10:30 AM EDT Office Visit [facility] MED[facility] [address] [place] [address] Name, MD Abdiel [address] [place] [address] 07/12/2024 3:15 PM EDT Office Visit [facility] MED[facility]INE [address] [place] [address] Saulo Cerna MD [address] [place] [address] 07/24/2024 11:00 AM EDT Office Visit [facility] OPTOMETRY [address] [place] [address] Andra Stanley, OD [address] [place] [address] documented as of this encounter Visit Diagnoses Not on filedocumented in this encounter Additional Health Concerns Assessment Noted Time PHQ-9 Depression Total Score: 0 07/07/19 23 9:53 AM EDT documented as of this encounter Care Teams Pastry Cook Apprentice Relationship Specialty Start Date End Date Name, MD Abdiel [address] [place] [address] PCP - General Family Medicine 03/20/18 documented as of this encounter
--- OUTSIDE RECORDS SUMMARY | 2024-05-29 13:16 | XMS_ITS | Encounter Summary ---
Author Organization [employer] Address [address] [facility] 7t [place] [address] Care Team Providers Care Highwall Drill Operator Name Role Phone Name, Abdiel COX Primary Care Provider Reason for Visit * Reason Onset Date Comments Med Refill 05/21/2024 Encounter Details Date Type Department Care Team ([facility] st Contact Info) Description 05/21/2024 Telephone [facility] MEDICINE [address] [place], [place] [phone] Name, MD Abdiel [address] [place], [place] [phone] Med Refill Social History Tobacco Use Types [...] encounter Miscellaneous Notes * Telephone Encounter - Miryam Minaya RN - 05/22/2024 3:42 PM EST TC placed to pharmacy regarding when traZODone (Desyrel) 50 MG tablet was last picked up and to determine if there are refills. Pt picked up a 90 day supply on 02/20/24 and there are no refills. TC placed to pt via [facility] tie tamper (Tru ID#[id number]) regarding medication. Train Conductor was disconnected. TC connected with another [facility] tie tamper (ID#[id number]). Pt son answered (on HIPAA) and spoke Uzbek. Pt's son states the pt has been taking as prescribed since PCP prescribed it before. Pt's son states the pt takes at bedtime to relax/sleep. Message forwarded to PCP to review and advise. * Telephone Encounter - Ihsan De La Rosa - 05/22/2024 2:40 PM EST Tc from pt son requesting status on medication for pt. Son Contact: (Latvian) * Telephone Encounter - Lawanda Blanca LPN - 05/21/2024 10:00 AM EST Medication was discontinued. * Telephone Encounter - Shelley Gamino - 05/21/2024 9:56 AM EST TC from pt requesting medication refill. Medications needing refill : traZODone (Desyrel) 50 MG tablet To be sent to: [facility]/pharmacy #[id number] - [place], [place] - [address] [place] [address] documented in this encounter Plan of Treatment Upcoming Encounters Date Type Department Care Team (Late st Contact Info) Description 06/12/2024 10:30 AM EDT Office Visit [facility] MED[facility]INE [address] [place] [address] Name, MD Abdiel [address] [place] [address] 07/12/2024 3:15 PM EDT Office Visit [facility] MEDICINE [address] [place] [address] Saulo Cerna MD [address] [place] [address] 07/24/2024 11:00 AM EDT Office Visit [facility] OPTOMETRY [address] [place] [address] Jaden, Andra, OD [address] [place] [address] documented as of this encounter Visit Diagnoses Not on filedocumented in this encounter Additional Health Concerns Assessment Noted Time PHQ-9 Depression Total Score: 0 07/07/19 23 9:53 AM EDT documented as of this encounter Care Teams Highwall Drill Operator Relationship Specialty Start Date End Date NameAbdiel MD [address] [place] [address] PCP - General Family Medicine 03/20/18 documented as of this encounter
--- OUTSIDE RECORDS SUMMARY | 2024-05-29 13:16 | XMS_ITS | Encounter Summary ---
Author Organization [employer] Address [address] [facility] 7t [place] [address] Care Team Providers Care Dado Operator Name Role Phone Name, Abdiel COX Primary Care Provider [phone] Reason for Visit * Reason Onset Date Comments Call Back Request 11/03/2023 Encounter Details Date Type Department Care Team ([facility] st Contact Info) Description 11/03/2023 Telephone [facility] MEDICINE [address] [place], [place] [phone] Name, MD Abdiel [address] [place], [place] [phone] Call Back Request Social History Tobacco Use [...] with niacinamide, (Fiasp FlexTouch) 100 UNIT/ML injection mortgage or loan underwriter did talk with pharmacy and the medication is in back order and won't be ready until Monday documented in this encounter Plan of Treatment Upcoming Encounters Date Type Department Care Team (Late st Contact Info) Description 06/12/2024 10:30 AM EDT Office Visit [facility] MEDICINE [address] [place] [address] Name, MD Abdiel [address] [place] [address] 07/12/2024 3:15 PM EDT Office Visit [facility] MEDICINE [address] [place] [address] Saulo Cerna MD [address] [place] [address] 07/24/2024 11:00 AM EDT Office Visit [facility] OPTOMETRY [address] [place] [address] Andra Stanley, STACY [address] [place] [address] documented as of this encounter Visit Diagnoses Not on filedocumented in this encounter Additional Health Concerns Assessment Noted Time PHQ-9 Depression Total Score: 0 07/07/19 23 9:53 AM EDT documented as of this encounter Care Teams Dado Operator Relationship Specialty Start Date End Date Name, MD Abdiel [address] [place] [address] PCP - General Family Medicine 03/20/18 documented as of this encounter
--- OUTSIDE RECORDS SUMMARY | 2024-05-29 13:16 | XMS_ITS | Encounter Summary ---
Author Organization [facility], Address [address] [place] [address] Phone Care Team Providers Care Metallurgy Teacher Name Role Phone Name, Abdiel COX Primary Care Provider [phone] Encounter Details Date Type Department Care Team (Late st Contact Info) Description 04/30/2024 Treatment [facility], [address] [place] [phone] Andrew Rodriguez MD [address] [place] [address] [place] [address] Social History Tobacco Use Types Packs/Day Years [...] Miscellaneous Notes * Dialysis Note - Andrew Rodriugez MD - 04/30/2024 12:00 AM EST Patient: David De La Rosa : 1940 [facility] Note Type: Dialysis Rounds-Comp Service Date: 04/30/2024 This patient was personally seen for a complete visit as part of routine monthly dialysis care for end stage renal disease. Attending Advanced Manufacturing Vice President: ANDREW RODRIGUEZ Dialysis Location: [facility] DIALYSIS Schedule: Shift: 2 HOME MEDICATIONS Current [facility] Outpatient Medications acetaminophen 325 mg capsule [...] tablet by mouth twice a day. Current [facility] Allergies Allergen: No Known Allergies Allergen: [...] reviewed. Dietary adjustments made in conjunction with laundry aid. Signed by: ANDREW RODRIGUEZ MD on 05/01/2024 at 11:17:36 AM Transcribed by: ANDREW RODRIGUEZ MD on 05/01/2024 at 11:17:36 AM documented in this encounter Plan of Treatment Upcoming Encounters Date Type Department Care Team (Late st Contact Info) Description 08/09/2024 10:00 AM EDT Procedure visit [facility] [address] [place] [phone] documented as of this encounter Visit Diagnoses Not on filedocumented in this encounter Care Teams Metallurgy Teacher Relationship Specialty Start Date End Date Name, MD Abdiel [address] [place] [id number] PCP - General 01/22/19 documented as of this encounter
--- OUTSIDE RECORDS SUMMARY | 2024-05-29 13:16 | XMS_ITS | Encounter Summary ---
Author Organization [facility], Address [address] [place] [address] Phone Care Team Providers Care Md Senior Research Scientist Name Role Phone Name, Abdiel COX Primary Care Provider [phone] Encounter Details Date Type Department Care Team (Late st Contact Info) Description 05/14/2024 Treatment [facility], [address] [place] [phone] Andrew Rodriguez MD [address] [place] [address] [place] [address] Social History Tobacco Use Types Packs/Day Years [...] encounter Miscellaneous Notes * Dialysis Note - Anrdew Rodriguez MD - 05/14/2024 12:00 AM EST Patient: David De La Rosa : 1940 [facility]: [facility] Note Type: Dialysis Rounds-Basic Service Date: 05/14/2024 This patient was personally seen for a basic visit as part of routine monthly dialysis care for end stage renal disease. Attending Holiday Detector Operator: ANDREW RODRIGUEZ Dialysis Location: [facility] DIAL[facility] Schedule: Shift: 2 HOME MEDICATIONS Current [facility] Outpatient Medications acetaminophen 325 mg capsule Take [...] tablet by mouth twice a day. Current [facility] Allergies Allergen: No Known Allergies Allergen: No [...] reviewed. Dietary adjustments made in conjunction with environmental manager. Signed by: ANDREW RODRIGUEZ MD on 05/14/2024 at 03:01:45 PM Transcribed by: ANDREW RODRIGUEZ MD on 05/14/2024 at 03:01:45 PM documented in this encounter Plan of Treatment Upcoming Encounters Date Type Department Care Team (Late st Contact Info) Description 08/09/2024 10:00 AM EDT Procedure visit [facility] [address] [place] [place] [phone] documented as of this encounter Visit Diagnoses Not on filedocumented in this encounter Care Teams Md Senior Research Scientist Relationship Specialty Start Date End Date Name, MD Abdiel [address] [place] [address] PCP - General 01/22/19 documented as of this encounter
--- OUTSIDE RECORDS SUMMARY | 2024-05-29 13:16 | XMS_ITS | Encounter Summary ---
Author Organization [facility], Address [address] [place] [address] Phone Care Team Providers Care Auto Slip Cover Installer Name Role Phone Name, Abdiel COX Primary Care Provider [phone] Encounter Details Date Type Department Care Team (Late st Contact Info) Description 05/28/2024 Treatment [facility], [address] [place] [phone] Kadie Slater FNP-C [address] [place] [address] [place] [address] End stage renal disease; Dependence on renal [...] Dialysis Note - Kadie Slater FNP-C - 05/28/2024 12:00 AM EDT Patient: David De La Rosa, 1940, 84y, M Dialysis Location: [facility] Attending Director Nicu: Kolton Ignacio Service Date: 05/28/2024 Service Provider: Kadie Slater NP I met face to face with the patient today. 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 Hyperglycemia, unspecified Admission Date 10/04/23 Discharge Date 10/12/23 DIALYSIS PRESCRIPTION IHD 3x Week Start date: 05/18/24 Dialyzer: 160NRe Optiflux BFR: 450 DFR: Manual 500 Potassium: 2.0 Sodium: 138 EDW: 67.5 Duration: 4:00 Calcium: 2.5 Bicarb: 33 Rx updated on: 05/18/2024 TREATMENT ASSESSMENT BP Stand Pre 05/25/2024: 124/79 05/23/2024: 161/78 05/21/2024: 175/82 BP Sit Pre 05/25/2024: 173/74 05/23/2024: 164/72 05/21/2024: 162/70 BP Stand Post 05/25/2024: 173/64 05/23/2024: 161/70 05/21/2024: 156/69 BP Sit Post 05/25/2024: 177/83 05/23/2024: 176/85 05/21/2024: 151/70 Tx Duration 05/25/2024: 4:01 05/23/2024: 4:03 05/21/2024: 3:57 Missed Treatments 0 - last 30 days 0 - last 60 days FLUID ASSESSMENT EDW (kg) 05/25/2024: 67.5 05/23/2024: 67.5 05/21/2024: 67.5 Weight Pre (kg) 05/25/2024: 69.5 05/23/2024: 69.3 05/21/2024: 70.4 Weight Post (kg) 05/25/2024: 67.1 05/23/2024: 66.7 05/21/2024: 67.6 PWV (kg) 05/25/2024: -0.4 05/23/2024: -0.8 05/21/2024: 0.1 UF Rate (mL/kg/hr) 05/25/2024: 8.9 05/23/2024: 9.6 05/21/2024: 10.5 ADEQUACY ASSESSMENT spKt/V, URR 05/23/2024: 1.92, 80.0 04/25/2024: 1.83, 78.0 03/21/2024: 1.83, 78.0 ACCESS ASSESSMENT Access Type: AVFistula Access SubType: Unknown Access Status: Active (In Use) - 03/06/2019 Access Location: Left Upper Arm Created: 01/21/2019 Flow 05/21/2024: >2000 04/23/2024: 1360 04/06/2024: 1798 ANEMIA ASSESSMENT HGB, TSAT 05/23/2024: 10.3, - 05/16/2024: 10.0, - 05/09/2024: 10.4, 41.0 Ferritin 05/09/2024: 1178.0 04/04/2024: 885.0 03/07/2024: 909.0 Mircera, IVP (mcg) 05/21/2024: 75 05/07/2024: 30 03/18/2024: 75 Iron Sucrose (Venofer) (mg) 05/23/2024: 50 05/16/2024: 50 03/21/2024: 100 BMM ASSESSMENT PTH, Intact 05/09/2024: 885.0 04/04/2024: 1174.0 03/07/2024: 794.0 Calcium, Phosphorus 05/09/2024: 9.0, 4.2 04/04/2024: 8.7, 4.4 03/11/2024: -, 5.6 Vitamin D (Calcitriol) Oral (mcg) 05/25/2024: 0.75 05/23/2024: 0.75 05/21/2024: 0.75 Cinacalcet (Sensipar) (mg) 03/11/2024: 30 NUTRITION ASSESSMENT Potassium, Albumin 05/09/2024: 4.8, 3.9 04/04/2024: 4.9, 4.2 03/07/2024: 4.7, 4.0 eNPCR 05/23/2024: 1.11 04/25/2024: 1.22 03/21/2024: 1.05 DIAGNOSIS Chief Complaint: N18.6 End stage renal disease Comments: Pt seen and examined. Access patent. VS noted. RRR with S1 and S2. LS CTA Bilaterally. nocomplaints today. Patient data updated 05/28/2024 at 2:41 PM Signed By: Kadie Slater NP on 05/28/2024 2:41:23 PM documented in this encounter Plan of Treatment Upcoming Encounters Date Type Department Care Team (Late st Contact Info) Description 08/09/2024 10:00 AM EDT Procedure visit [facility] [address] [place] [address] documented as of this encounter Visit Diagnoses Diagnosis End stage renal disease Dependence on renal dialysis documented in this encounter Care Teams Auto Slip Cover Installer Relationship Specialty Start Date End Date Name, MD Abdiel [address] [place] [id number] PCP - General 01/22/19 documented as of this encounter
--- OUTSIDE RECORDS SUMMARY | 2024-05-29 13:16 | XMS_ITS | Encounter Summary ---
Author Organization [facility], Address [address] [place] [address] Phone Care Team Providers Care Tile Molder Name Role Phone Name, Abdiel COX Primary Care Provider [phone] Encounter Details Date Type Department Care Team (Late Contact Info) Description 05/09/2024 Orders Only [facility] [address] [place] [phone] Kolton Ignacio MD [address] [facility] [place] [phone] Social History Tobacco Use Types Packs/Day Years [...] [facility] [address] [facility] [address] [place] [phone] documented as of this encounter Procedures Procedure [...] LAB BLOOD ORDERABLES Final Re sult [facility] See order comments or contact performing [...] 05/10/2024 Unless otherwise specified, test(s) performed at: [facility], [address] [place] [address] BLOCKING MACHINE TENDER: Ben Conklin M.D. For any questions, please call customer service at FREQUENCY:MONTHLY Resulting Agency Comment Specimen source: Serum Kolton Ignacio MD LAB BLOOD ORDERABLES Edited R esult - Final [facility] See order comments or contact performing [...] 05/10/2024 Unless otherwise specified, test(s) performed at: [facility], [address] [place] [address] BLOCKING MACHINE TENDER: Ben Conklin M.D. For any questions, please call customer service at FREQUENCY:MONTHLY Resulting Agency Comment Specimen source: Blood Kolton Ignacio MD LAB BLOOD ORDERABLES Final Re sult [facility] See order comments or contact performing lab Unknown, [place] * (ABNORMAL) [facility] (05/09/2024) PTH 885(H) 16 - 80 pg/mL [facility] 05/09/2024 05/10/2024 8:5 8 AM EST Narrative [facility] - 05/10/2024 Unless otherwise specified, test(s) performed at: [facility], [address] [place] [address] BLOCKING MACHINE TENDER: Ben Conklin M.D. For any questions, please call customer service at FREQUENCY:MONTHLY Resulting Agency Comment Specimen source: Plasma us Kolton Ignacio MD LAB BLOOD ORDERABLES Final Re sult [facility] See order comments or contact performing lab Unknown, [place] documented in this encounter Visit Diagnoses Not on filedocumented in this encounter Care Teams Tile Molder Relationship Specialty Start Date End Date Name, MD Abdiel [address] [place] [address] PCP - General 01/22/19 documented as of this encounter
--- OUTSIDE RECORDS SUMMARY | 2024-05-29 13:16 | XMS_ITS | Encounter Summary ---
Author Organization [facility], Address [address] [place] [address] Phone Care Team Providers Care Technical Project Manager Name Role Phone Name, Abdiel COX Primary Care Provider [phone] Encounter Details Date Type Department Care Team (Late st Contact Info) Description 05/21/2024 Treatment [facility], [address] [place] [address] Andrew Rodriguez MD [address] [place] [address] [place] [address] End stage renal disease; Dependence on renal [...] care for end stage renal disease. Attending Horticultural Specialty Grower Inside: ANDREW RODRIGUEZ MD Dialysis Location: [facility] DIALYSIS Schedule: Shift: 2 HOME MEDICATIONS Current [facility] Outpatient Medications acetaminophen 325 mg capsule [...] tablet by mouth twice a day. Current [facility] Allergies Allergen: No Known Allergies Allergen: [...] reviewed. Dietary adjustments made in conjunction with manager acquisition. 3/4: stable, no issues reported same HD Rx Signed by: ANDREW RODRIGUEZ MD on 05/21/2024 at 05:38:31 PM documented in this encounter Plan of Treatment Upcoming Encounters Date Type Department Care Team (Late st Contact Info) Description 08/09/2024 10:00 AM EDT Procedure [facility] - [facility] Access Center [address] [place] [address] documented as of this encounter Visit Diagnoses Diagnosis End stage renal disease Dependence on renal dialysis documented in this encounter Care Teams Technical Project Manager Relationship Specialty Start Date End Date Name, MD Abdiel [address] [place] [address] PCP - General 01/22/19 documented as of this encounter
--- OUTSIDE RECORDS SUMMARY | 2024-05-29 13:16 | XMS_ITS | Encounter Summary ---
Author Organization [employer] Address [address] [facility] 7t [place] [address] Care Team Providers Care Production Technician Name Role Phone Name, Abdiel COX Primary Care Provider [phone] Reason for Visit * Reason Onset Date Comments Appointment Request 05/17/2023 Encounter Details Date Type Department Care Team ([facility] st Contact Info) Description 05/17/2023 Telephone [facility] MEDICINE [address] [place], [place] [phone] Name, MD Abdiel [address] [place], [place] [phone] Appointment Request Social History Tobacco Use Types [...] Office Visit [facility] MEDICINE [address] [place] [address] Name, MD Abdiel [address] [place] [address] 07/12/2024 3:15 PM EDT Office Visit [facility] MEDICINE [address] [place] [address] Saulo Cerna MD [address] [place] [address] 07/24/2024 11:00 AM EDT Office Visit [facility] OPTOMETRY [address] [place] [address] Andra Stanley, OD [address] [place] [address] documented as of this encounter Visit Diagnoses Not on filedocumented in this encounter Additional Health Concerns Assessment Noted Time PHQ-9 Depression Total Score: 0 07/07/19 23 9:53 AM EDT documented as of this encounter Care Teams Production Technician Relationship Specialty Start Date End Date Name, MD Abdiel [address] [place] [address] PCP - General Family Medicine 03/20/18 documented as of this encounter
--- OUTSIDE RECORDS SUMMARY | 2024-05-29 13:16 | XMS_ITS | Encounter Summary ---
Author Organization [facility], Address [address] [place] [address] Phone Care Team Providers Care Cocoa Room Operator Name Role Phone Name, Abdiel COX Primary Care Provider [phone] Reason for Visit * Reason Comments Med Refill Encounter Details Date Type Department Care Team (Late st Contact Info) Description 04/09/2020 Refill [facility] [address] [place] [phone] Vinay Santiago MD [address] [facility] [place] [phone] Social History Tobacco Use Types Packs/Day Years [...] [place] - [facility] [address] [facility] [place] [phone] documented as of this encounter Visit Diagnoses Not on filedocumented in this encounter Care Teams Cocoa Room Operator Relationship Specialty Start Date End Date Name, MD Abdiel [address] [place] [address] PCP - General 01/22/19 documented as of this encounter
--- OUTSIDE RECORDS SUMMARY | 2024-05-29 13:16 | XMS_ITS | Encounter Summary ---
Author Organization [employer] Address [address] [facility] 7t [place] [address] Care Team Providers Care Manager Salt Name Role Phone Name, Abdiel COX Primary Care Provider [phone] Reason for Visit * Reason Onset Date Comments Appointment Request 05/23/2024 Encounter Details Date Type Department Care Team ([facility] st Contact Info) Description 05/23/2024 Telephone [facility] MEDICINE [address] [place], [place] [phone] [place] Appointment Request Social History Tobacco Use Types [...] encounter Miscellaneous Notes * Telephone Encounter - Oracio Pacheco [place] - 05/23/2024 1:55 PM EST T/c placed to pt requesting to R/s Apt from 05/28/24. Son states that they Can't Make Apts on Tuesdays or . Son agrees with plans to come on 06/12/24. documented in this encounter Plan of Treatment Upcoming Encounters Date Type Department Care Team (Late st Contact Info) Description 06/12/2024 10:30 AM EDT Office Visit [facility] [address] [place] [address] Name, MD Abdiel [address] [place] [address] 07/12/2024 3:15 PM EDT Office Visit [facility] MEDICINE [address] [place] [address] Saulo Cerna MD [address] [place] [address] 07/24/2024 11:00 AM EDT Office Visit [facility] OPTOMETRY [address] [place] [address] Andra Stanley, STACY [address] [place] [address] documented as of this encounter Visit Diagnoses Not on filedocumented in this encounter Additional Health Concerns Assessment Noted Time PHQ-9 Depression Total Score: 0 07/07/19 23 9:53 AM EDT documented as of this encounter Care Teams Manager Salt Relationship Specialty Start Date End Date Name, MD Abdiel [address] [place] [address] PCP - General Family Medicine 03/20/18 documented as of this encounter
--- OUTSIDE RECORDS SUMMARY | 2024-05-29 13:16 | XMS_ITS | Encounter Summary ---
Author Organization [employer] Address [address] [facility] 7t [place] [address] Care Team Providers Care Breaker Engineer Name Role Phone Name, Abdiel COX Primary Care Provider [phone] Reason for Visit * Reason Comments Med Refill Encounter Details Date Type Department Care Team ([facility] st Contact Info) Description 05/22/2024 Refill [facility] MEDICINE [address] [place], [place] [phone] Name, MD Abdiel [address] [place] [address] Social History Tobacco Use Types Packs/Day Years [...] Description 06/12/2024 10:30 AM EDT Office Visit [facility] MEDICINE [address] [place] [address] Abdiel August MD [address] [place] [address] 07/12/2024 3:15 PM EDT Office Visit [facility] MEDICINE [address] [place] [address] Saulo Cerna MD [address] [place] [address] 07/24/2024 11:00 AM EDT Office Visit [facility] OPTOMETRY [address] [place] [address] Jaden, Andra, OD [address] [place] [address] documented as of this encounter Visit Diagnoses Not on filedocumented in this encounter Additional Health Concerns Assessment Noted Time PHQ-9 Depression Total Score: 0 07/07/19 23 9:53 AM EDT documented as of this encounter Care Teams Breaker Engineer Relationship Specialty Start Date End Date Abdiel August MD [address] [place] [address] PCP - General Family Medicine 03/20/18 documented as of this encounter
--- OUTSIDE RECORDS SUMMARY | 2024-05-29 13:16 | XMS_ITS | Clinical Summary ---
Author Organization [employer] Address [address] [place] [address] [address] [place] [address] Care Team Providers Care Feed Grinder Name Role Phone Name, Abdiel COX Primary Care Provider [phone] Allergies No known active allergies Medications Breo Ellipta 100-25 MCG/ACT aerosol powder INHALE 1 PUFF BY MOUTH DAILY 06/11/19 23 Active albuterol 108 (90 Base) MCG/ACT inhaler Inhale 2 puffs. 04/16/19 19 Active Auryxia 1 GM 210 MG(Fe) tablet TAKE 3 TABLETS BY MOUTH THREE TIMES A DAY WITH MEALS. SWALLOW WHOLE, DO NOT CHEW OR CRUSH MEDICATION 06/21/19 23 Active calcitriol (Rocaltrol) 0.5 MCG capsule Take 3 capsules by mouth every 12 (twelve) hours. 06/24/19 20 Active glucose blood (FREESTYLE LITE) test strip USE TO TEST BLOOD SUGAR ONCE A DAY 100 each 11 01/05/20 23 Active acetaminophen (Tylenol) 325 MG tablet Take 3 tablets by mouth every 6 (six) hours if needed. Active lidocaine (Xylocaine) 5 % ointment Apply topically if needed for mild pain or moderate pain. 50 g 11 06/23/19 24 025 Active tamsulosin (Flomax) 0.4 MG 24 hr capsuleIndicat ions:Benign prostatic hyperplasia, unspecified whether lower urinary tract symptoms present TAKE 1 CAPSULE BY MOUTH EVERY DAY 1/2 HOUR FOLLOWING THE SAME MEAL EACH DAY 90 capsule 1 07/31/19 24 Active atorvastatin (Lipitor) 40 MG tablet Take 1 tablet by mouth Once per day. 10/25/19 24 Active pantoprazole (ProtoNix) 40 MG EC tablet Take 40 mg by mouth Once per day. 10/12/19 Active Docusate Sodium (COLACE PO) Take 2 capsules by mouth Once per day. 10/12/19 Active carvedilol (Coreg) 6.25 MG tablet Take 1 tablet by mouth with breakfast and with evening meal. 10/25/19 Active sennosides (Senokot) 8.6 MG tablet Take 17.2 mg by mouth Once per day. 10/12/19 Active Wound Cleansers (Vashe Cleansing) solution Apply topically Use as directed. Active Continuous Glucose Faculty Neuropsychologist (FreeStyle Franklyn 2 [place]) deviceIndicati ons:Type 2 diabetes mellitus with chronic kidney disease on chronic dialysis, with long-term current use of insulin (CMS/HCC) Scan sensor every 8 hours 1 each 11/01/19 24 Active Continuous Glucose Sensor (FreeStyle Franklyn 2 Sensor) miscIndication s:Type 2 diabetes mellitus with chronic kidney disease on chronic dialysis, with long-term current use of insulin (CMS/HCC) Apply 1 sensor every 14 days 2 each 3 11/01/19 24 Active glucose blood (FreeStyle Precision Elia Test) test stripIndicatio ns:Type 2 diabetes mellitus with chronic kidney disease on chronic dialysis, with long-term current use of insulin (CMS/HCC) Use to test blood sugar 3 times daily 100 each 12 11/01/19 24 025 Active FREESTYLE LITE test stripIndicatio ns:Type 2 diabetes mellitus with chronic kidney disease on chronic dialysis, with long-term current use of insulin (CMS/HCC) Use to test blood sugar 3 times daily 100 each 12 11/01/19 24 025 Active Lancets miscIndication s:Type 2 diabetes mellitus with chronic kidney disease on chronic dialysis, with long-term current use of insulin (CMS/HCC) Use to test blood sugar 3 times daily 100 each 11/01/19 24 Active Alcohol Swabs 70 % padsIndication s:Type 2 diabetes mellitus with chronic kidney disease on chronic dialysis, with long-term current use of insulin (CMS/HCC) Use to test blood sugar 3 times daily 100 each 11/01/19 24 Active Blood Glucose Monitoring Suppl (FreeStyle Clio Lite) w/Device kitIndications :Type 2 diabetes mellitus with chronic kidney disease on chronic dialysis, with long-term current use of insulin ([facility]) Use to test blood sugar 3 times daily 1 kit 11/01/19 24 Active Glucagon 1 MG/0.2ML solutionIndica tions:Type 2 diabetes mellitus with chronic kidney disease on chronic dialysis, with long-term current use of insulin ([facility]) Inject 1 mg under the skin if needed (hypoglycemia ). 1 mL 1 11/01/19 24 Active sevelamer carbonate (Renvela) 800 MG tablet 10/25/19 24 Active pen needle 32G x 4 mm miscIndication s:Type 2 diabetes mellitus with chronic kidney disease on chronic dialysis, with long-term current use of insulin ([facility]) Use with insulin TID as needed 100 each 12 11/01/19 24 Active Insulin Aspart 100 UNIT/ML solution Inject [...] if BG 320 - 369 10 mL 11/08/19 24 Active valsartan (Diovan) 40 MG tablet TAKE 1/2 TABLET ORALLY 2 TIMES A DAY 11/27/19 24 Active diphenhydrAMIN E (BENADryl) 25 MG tablet Take 1 tablet (25 mg) by mouth if needed at bedtime for itching. 30 tablet 2 01/10/20 24 Active aspirin (Aspirin Low Dose) 81 MG EC tablet Take 1 tablet (81 mg) by mouth Once per day. 90 tablet 1 01/24/20 24 Active traZODone (Desyrel) 50 MG tablet Take 0.5 tablets (25 mg) by mouth if needed at bedtime for sleep. 15 tablet 1 05/23/19 25 025 Active traZODone (Desyrel) 50 MG tablet take 0.5 tablets (25 mg) by mouth at bedtime. 02/19/20 24 025 Discontinued(Re order (will not trigger notification to Pharmacy)) Active Problems Problem Noted Date Diagnosed Date Ischemic cardiomyopathy 01/10/2024 History of coronary artery bypass graft x 3 10/18 Assessment & Plan (11/01/2023 7:50 PM EDT): -appears to be recovering well. Weakness and decreased appetite most likely r/t chronic disease and recent surgery. Advised continued movement and physical activity as tolerated. 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 Chronic cough 07/06/2022 [...] Encounters Date Type Department Care Team Description 05/23/2024 Telephone [facility] [address] [place] [address] Oracio Pacheco [place] Appointment Request 05/22/2024 Refill [facility] [address] [place] [address] Abdiel August MD 05/22/2024 Telephone [facility] [address] [place] [address] Abdiel August MD Appointment Request 05/22/2024 Refill [facility] [address] [place] [address] Abdiel August MD 05/21/2024 Telephone [facility] [address] [place] [address] Abdiel August MD Med Refill 03/21/2024 Telephone [facility] [address] [place] [address] Oracio Pacheco [place] Edgardo recalls from Last 3 Months Immunizations Name [...] Description 06/12/2024 10:30 AM EDT Office Visit [facility] [address] [place] [address] Name, MD Abdiel [address] [place] [address] 07/12/2024 3:15 PM EDT Office Visit [facility] [address] [place] [address] Saulo Cerna MD [address] [place] [address] 07/24/2024 11:00 AM EDT Office Visit [facility] [address] [place] [address] JadenAndra fabian, OD [address] [place] [address] Health Maintenance Due Date Last Done Comments Derm Melanoma Skin Check 1940 Alcohol/Substance Use Screening 1954 RSV Patients and Patients Aged 60 years or older (1 - 1-dose 75+ series) 2017 Zoster Vaccines (2 of 2) 02/08/2021 12/14/2020 Lipid Panel 03/03/2022 03/03/2021, 06/17/2020 Depression Screening 07/07/2023 07/06/2022, 07/07/19 23 SDOH Screening 07/30/2023 07/29/2022 Influenza Vaccine (#1) 2023 2, 12/21/2021, 12/14/2020, Additional history exists Diabetes: Hemoglobin [...] dialysis, with long-term current use of insulin ([facility]) LIPID PANEL, STANDARD Routine 03/03/2021 8:39 AM EST from Last 3 Months or Most Recently Relevant to Health Maintenance Results * (ABNORMAL) POCT HGB A1C (11/01/2023 9:05 AM EDT) Hemoglobin A1C 6.3(A) 4.0 - 6.0 % QC Media Lot # [id number] Lot# Expiration Date [id number] Blood 11/01/2023 9:05 AM EDT Valery Mann NP POINT OF CARE TEST ENTER/EDIT O RDERABLES [...] ?? LDL-C is now calculated using the Coral ?? calculation, which is a validated novel method providing ?? better accuracy than the Friedewald equation in the ?? estimation of LDL-C. ?? Jose TREVINO et al. JAZMIN. 2013;310(19): 2315-0576 ?? (http://education.Praccel/faq/HEQ159) Non-HDL Cholesterol 138(H) <130 mg/dL (calc) [facility] [...] 2015;9:129-169. ?? 03/03/2021 8:39 AM EST us Abdiel August MD LAB BLOOD ORDERABLES Final Resul t [facility] [address] [place], [place] [address] from Last 3 Months or Most Recently Relevant to Health Maintenance Insurance [facility] STANDARD [place] [phone] Care Teams Feed Grinder Relationship Specialty Start Date End Date Name, MD Abdiel [address] [place] [phone] PCP - General Family Medicine 03/20/18
--- OUTSIDE RECORDS SUMMARY | 2024-05-29 13:16 | XMS_ITS | Encounter Summary ---
Author Organization [facility], Address [address] [place] [address] Phone Care Team Providers Care Pillowcase Sewer Name Role Phone Name, Abdiel COX Primary Care Provider [phone] Reason for Visit * Reason Comments Med Refill Encounter Details Date Type Department Care Team (Late st Contact Info) Description 05/03/2019 Refill [facility] [address] [place] [phone] Vinay Santiago MD [address] [place] [phone] Social History Tobacco Use Types Packs/Day Years [...] visit [facility] - [facility] [address] [place] [phone] documented as of this encounter Visit Diagnoses Not on filedocumented in this encounter Care Teams Pillowcase Sewer Relationship Specialty Start Date End Date Name, MD Abdiel [address] [place] [address] PCP - General 01/22/19 documented as of this encounter
--- OUTSIDE RECORDS SUMMARY | 2024-05-29 13:16 | XMS_ITS | Encounter Summary ---
Author Organization [facility], Address [address] [place] [address] Phone Care Team Providers Care Boat Diesel Motor Mechanic Name Role Phone Name, Abdiel COX Primary Care Provider [phone] Encounter Details Date Type Department Care Team (Late st Contact Info) Description 05/07/2024 Treatment [facility], [address] [place] [phone] Kadie Slater FNP-C [address] [place] [address] [place] [address] Social History Tobacco Use Types Packs/Day Years [...] Inman Rj, 1940, 84y, M Dialysis Location: [facility] Attending Buffing Machine Operator Semiautomatic: Kolton Ignacio Service Date: 05/07/2024 Service Provider: Kadie Slater NP I met face to face with the patient today. 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
--- OUTSIDE RECORDS SUMMARY | 2024-05-29 13:16 | XMS_ITS | Encounter Summary ---
Author Organization [employer] Address [address] [facility] 7t [place] [address] Care Team Providers Care Hvac Service Tech Name Role Phone Name, Abdiel COX Primary Care Provider [phone] Reason for Visit * Reason Comments Med Refill Encounter Details Date Type Department Care Team ([facility] st Contact Info) Description 05/22/2024 Refill [facility] [address] [place], [place] [phone] Name, MD Abdiel [address] [place] [address] Social History Tobacco Use Types Packs/Day Years [...] Description 06/12/2024 10:30 AM EDT Office Visit [facility] [address] [place] [address] Abdiel August MD [address] [place] [address] 07/12/2024 3:15 PM EDT Office Visit [facility] [address] [place] [address] Saulo Cerna MD [address] [place] [address] 07/24/2024 11:00 AM EDT Office Visit [facility] [address] [place] [address] Jaden, Andra, OD [address] [place] [address] documented as of this encounter Visit Diagnoses Not on filedocumented in this encounter Additional Health Concerns Assessment Noted Time PHQ-9 Depression Total Score: 0 07/07/19 23 9:53 AM EDT documented as of this encounter Care Teams Hvac Service Tech Relationship Specialty Start Date End Date Abdiel August MD [address] [place] [phone] PCP - General Family Medicine 03/20/18 documented as of this encounter
--- OUTSIDE RECORDS SUMMARY | 2024-05-29 13:16 | XMS_ITS | Clinical Summary ---
Author Organization [facility], Address [address] [place] [address] Phone Care Team Providers Care Choke Reamer Name Role Phone Name, Abdiel COX Primary Care Provider [phone] Allergies No known active allergies Medications albuterol [...] tolerated. Eat small meals frequently -followed by [facility] cardiac surgery Andra SHEFFIELD -scheduled to participate in cardiac rehab Atherosclerotic heart diseas e of [place] coronary artery without angina pectoris 10/12/2023 Chronic [...] Encounters Date Type Department Care Team Description 05/28/2024 Treatment [facility], [address] [place] [address] Kadie Slater, RAILWAY SWITCHMAN-Fani End stage renal disease; Dependence on renal dialysis 05/23/2024 Orders Only [facility] [address] [address] Kolton Ignacio MD 05/21/2024 Treatment [facility], [address] [place] [address] Andrew Vincent MD End stage renal disease; Dependence on renal dialysis 05/16/2024 Orders Only [facility] [address] [place] [address] Kolton Ignacio MD 05/14/2024 Treatment [facility], [address] [place] [address] Andrew Vincent MD 05/13/2024 Telephone [facility] - [facility] Center [address] [place] [address] Ellie Virgen post op call 05/10/2024 10:00 AM EST Procedure visit [facility] [address] [place] [address] Luisito Artis MD End stage renal disease (HCC) (Primary Dx); Stenosis of other vascular prosthetic devices, implants and grafts, initial encounter (HCC) 05/09/2024 Orders Only [facility] [address] [address] Kolton Ignacio MD 05/07/2024 Treatment [facility], [address] [place] [address] Kadie Slater FNP-C 05/02/2024 Orders Only [facility] [address] [address] Kolton Ignacio MD 04/30/2024 Treatment [facility], [address] [place] [address] Andrew Vincent MD 04/25/2024 Orders Only [facility] [address] [address] Kolton Ignacio MD 04/23/2024 Treatment [facility], [address] [place] [address] Kadie Slater FNP-C 04/18/2024 Orders Only [facility] [address] [address] Kolton Ignacio MD 04/16/2024 Orders Only [facility] [address] [address] Kolton Ignacio MD 04/16/2024 Treatment [facility], [address] [place] [address] Kadie Slater FNP-C 04/11/2024 Orders Only [facility] [address] [address] Kolton Ignacio MD 04/04/2024 Orders Only [facility] [address] [address] Kolton Ignacio MD 04/04/2024 Treatment [facility] [address] [place] [address] Andrew Vincent MD 03/28/2024 Orders Only [facility] [address] [address] Kolton Ignacio MD 03/28/2024 Treatment [facility] [address] [place] [address] Sara Morin PA 03/21/2024 Orders Only [facility] [address] [address] Kolton Ignacio MD 03/21/2024 Treatment [facility] [address] [place] [address] Sara Morin PA 03/14/2024 Orders Only [facility] [address] [address] Kolton Ignacio MD 03/11/2024 Orders Only [facility] [address] [address] Kolton Ignacio MD 03/07/2024 Orders Only [facility] [address] [address] Kolton Ignacio MD 03/05/2024 Treatment [facility] [address] [place] [address] Sara Morin PA 02/29/2024 Orders Only [facility] [address] [place] [address] Kolton Ignacio MD from Last 3 Months Family History [...] visit [facility] [address] [place] [address] Health Maintenance Due Date Last Done Comments Hepatitis B Vaccine (1 of 5 - Risk Dialysis 4-dose series) 1960 Diabetes: Pedal Pulse Checked 06/07/2019 Diabetes: Sensory Foot Exam 06/07/2019 Diabetes: Visual Foot Exam 06/07/2019 Influenza Vaccine (#1) 2023 2, 12/14/2020, 12/12/2018, Additional history exists Diabetes: Ophthalmology Exam 05/17/2024 05/17/2023 Diabetes: Hemoglobin A1C 07/03/20242 025, 01/04/2024, 11/01/2023, Additional history exists Pneumococcal Vaccine: 65+ Years Completed 11/15/2017, 11/15/2017, 09/30/2016, Additional history exists Procedures Procedure Name Priority Date/Time Associated Diagnosis Comments [facility] RESULTS Routine 05/23/2024 HD KINETICS Routine 05/23/2024 POST CHEMISTRY Routine 05/23/2024 CHEMISTRY Routine 05/23/2024 HEMATOLOGY Routine 05/23/2024 HEMATOLOGY Routine 05/16/2024 IMMUNO CHEMISTRY Routine 05/09/2024 [...] 03/07/2024 CHEMISTRY Routine 03/07/2024 HEMATOLOGY Routine 02/29/2024 from Last 3 Months Results * HD KINETICS (05/23/2024) Only the most recent of3 resultswithin the time period is included. % Urea Reduction 80 65 - 80 % [facility] 05/23/2024 05/27/2024 11: 36 AM EDT Narrative Resulting Agency Comment Specimen source: Plasma us Kolton Ignacio MD LAB BLOOD ORDERABLES Final Re sult [facility] See order comments or contact performing lab Unknown, [place] * POST CHEMISTRY (05/23/2024) Only the most recent of3 resultswithin the time period is included. BUN Post Dialysis 12 6 - 19 mg/dL [facility] 05/23/2024 05/27/2024 11: 36 AM EDT Narrative [facility] - 05/27/2024 Unless otherwise specified, test(s) performed at: [facility], [address] [place], [place] [id number] RADIO ENGINEERING TEACHER: Ben Conklin M.D. For any questions, please call customer service at FREQUENCY:OTHER Resulting Agency Comment Specimen source: Plasma Kolton Ignacio MD LAB BLOOD ORDERABLES Final Re sult Performing Organization Address [facility] Co de Phone Number [employer] See order comments or contact performing lab Unknown, [place] * (ABNORMAL) HEMATOLOGY (05/23/2024) Only the most recent of13 resultswithin the time period is included. Hemoglobin 10.3(L) 14.0 - 18.0 g/dL [facility] Hemoglobin x 3 30.9(L) 42.0 - 54.0 % [facility] 05/23/2024 05/24/2024 10: 15 AM EST Narrative [facility] - 05/24/2024 Unless otherwise specified, test(s) performed at: [facility], [address] [place] [id number] RADIO ENGINEERING TEACHER: Ben Conklin M.D. For any questions, please call customer service at FREQUENCY:OTHER Resulting Agency Comment Specimen source: Blood Kolton Ignacio MD LAB BLOOD ORDERABLES Final Re sult [employer] [employer] [facility] See order comments or contact performing lab Unknown, [place] * (ABNORMAL) [facility] Chemistry (05/23/2024) Only the most recent of10 resultswithin the time period is included. BUN 59(H) 6 - 19 mg/dL [facility] 05/23/2024 05/24/2024 10: 21 AM EST Narrative [facility] - 05/24/2024 Unless otherwise specified, test(s) performed at: [facility], [address] [place] [address] RADIO ENGINEERING TEACHER: Ben Conklin M.D. For any questions, please call customer service at FREQUENCY:OTHER Resulting Agency Comment Specimen source: Serum Kolton Ignacio MD LAB BLOOD ORDERABLES Final Re sult Performing Organization Address City/[facility] Co de Phone Number [employer] See order comments or contact performing lab Unknown, [place] * [facility] Results (05/23/2024) Only the most recent of3 resultswithin the time period is included. Pathologist [facility] eNPCR 1.11 [facility] nPCR_HD 1.17 [facility] eKt/V Gotch 1.71 [facility] spKt/V Gotch 1.97 [facility] Center PCR 63.99 Knowledge Center eKdrt/V 1.71 [facility] spKt/V (Daugirdas II) 1.92 [facility] WSTDKT/V 2.7 [facility] eKt/V (Tattersall) 1.68 [facility] 05/23/2024 05/23/2024 [facility] Ordering Provider LAB BLOOD ORDERABLES Final Result Performing Organization Address [facility] de Phone Number [facility] Contact Performing lab Unknown, [place] * IMMUNO CHEMISTRY (05/09/2024) Only the most recent of3 resultswithin the time period is included. Pathologist [facility] Hep B Surface Ag Negative Negative [facility] 05/09/2024 05/10/2024 9:0 1 AM EST Narrative Resulting Agency Comment Specimen source: Serum Kolton Ignacio MD LAB BLOOD ORDERABLES Final Re sult Performing Organization Address [facility] Co de Phone Number [facility] See order comments or contact performing lab Unknown, [place] * (ABNORMAL) SPECIAL CHEMISTRY (04/16/2024) Only the most recent of2 resultswithin the time period is included. Vitamin D, 25-OH, Total 22.3(L) 30.0 - 100.0 ng/mL [employer] Comment: Please Note:? Effective January 16, 2023, the methodology for this test has changed to the [facility]. 04/16/2024 04/17/2024 8:1 5 AM EST Narrative [facility] - 04/17/2024 Unless otherwise specified, test(s) performed at: [facility], [address] [place] [address] RADIO ENGINEERING TEACHER: Ben Conklin M.D. For any questions, please call customer service at FREQUENCY:OTHER Resulting Agency Comment Specimen source: Serum us Kolton Ignacio MD LAB BLOOD BANK TEST ORDERABLE S Final Result [employer] See order comments or contact performing lab Unknown, [place] from Last 3 Months Insurance MEDICARE MEDICAID [place] Care Teams Choke Reamer Relationship Specialty Start Date End Date Name, MD Abdiel [address] [place] [id number] PCP - General 01/22/19
--- OUTSIDE RECORDS SUMMARY | 2024-05-29 13:16 | XMS_ITS | Encounter Summary ---
Author Organization [employer] Address [address] [facility] 7t [place] [address] Care Team Providers Care Sensor Specialist Name Role Phone Name, Abdiel COX Primary Care Provider [phone] Reason for Visit * Reason Onset Date Comments Med Change Request Med Refill 11/01/2023 Patient son walk ed in stating insulin prescribed yesterday they don't have it in the pharmacy [facility] , Patient son is requesting a different insulin to be sent to [facility] patient needs to insulin today. Any questions call [phone] Christopher Inman Encounter Details Date Type Department Care Team (Late st Contact Info) Description 11/01/2023 Refill [facility] [address] [place], [place] [phone] Name, MD Abdiel [address] [place] [address] Type 2 diabetes mellitus with chronic kidney disease on chronic dialysis, with long-term current use of insulin ([facility]) Social History Tobacco Use Types Packs/Day [...] a different insulin to be sent to [facility] patient needs to insulin today. Any questions call [phone] Christopher Inman documented in this encounter Plan of Treatment Upcoming Encounters Date Type Department Care Team (Late st Contact Info) Description 06/12/2024 10:30 AM EDT Office Visit [facility] [address] [place] [address] Name, MD Abdiel [address] [place] [address] 07/12/2024 3:15 PM EDT Office Visit [facility] [address] [place] [address] Saulo Cerna MD [address] [place] [address] 07/24/2024 11:00 AM EDT Office Visit [facility] OPTOMETRY [address] [place] [address] Andra Stanley, OD [address] [place] [address] documented as of this encounter Visit Diagnoses Diagnosis Type 2 diabetes mellitus with chronic kidney disease on chronic dialysis, with long-term current use of insulin ([facility]) documented in this encounter Additional Health Concerns Assessment Noted Time PHQ-9 Depression Total Score: 0 07/07/19 23 9:53 AM EDT documented as of this encounter Care Teams Sensor Specialist Relationship Specialty Start Date End Date Name, MD Abdiel [address] [place] [address] PCP - General Family Medicine 03/20/18 documented as of this encounter
--- OUTSIDE RECORDS SUMMARY | 2024-05-29 13:16 | XMS_ITS | Encounter Summary ---
Author Organization [employer] Address 75 [facility] 7t [place] [address] Care Team Providers Care Hospital Medicine Director Name Role Phone Name, Abdiel COX Primary Care Provider Encounter Details Date Type Department Care Team (Late st Contact Info) Description 08/03/2023 Telephone [facility] [address] [place], [place] [phone] Name, MD Abdiel [address] [place], [place] [phone] Social History Tobacco Use Types Packs/Day Years [...] Description 06/12/2024 10:30 AM EDT Office Visit [facility] [address] [place] [address] NameAbdiel MD [address] [place] [address] 07/12/2024 3:15 PM EDT Office Visit [facility] [address] [place] [address] Saulo Cerna MD [address] [place] [address] 07/24/2024 11:00 AM EDT Office Visit [facility] OPTOMETRY [address] [place] [address] Jaden, Andra, OD [address] [place] [address] documented as of this encounter Visit Diagnoses Not on filedocumented in this encounter Additional Health Concerns Assessment Noted Time PHQ-9 Depression Total Score: 0 07/07/19 23 9:53 AM EDT documented as of this encounter Care Teams Hospital Medicine Director Relationship Specialty Start Date End Date Abdiel August MD [address] [place] [address] PCP - General Family Medicine 03/20/18 documented as of this encounter
--- OUTSIDE RECORDS SUMMARY | 2024-05-29 13:16 | XMS_ITS | Encounter Summary ---
Author Organization [facility], Address [address] [place] [address] Phone Care Team Providers Care Mass Communications Professor Name Role Phone Name, Abdiel COX Primary Care Provider [phone] Encounter Details Date Type Department Care Team (Late Contact Info) Description 05/02/2024 Orders Only [facility] [address] [place] [phone] Kolton Igancio MD [address] [facility] [place] [phone] Social History Tobacco Use Types Packs/Day Years [...] visit [facility], - V[facility] Access Center [address] [place] [address] [place] [phone] documented as of this encounter Procedures Procedure Name Priority Date/Time Associated Diagnosis Comments HEMATOLOGY Routine 05/02/2024 documented in this encounter Results * (ABNORMAL) HEMATOLOGY (05/02/2024) Hemoglobin 10.4(L) 14.0 - 18.0 g/dL [facility] Hemoglobin x 3 31.2(L) 42.0 - 54.0 % [facility] 05/02/2024 05/04/2024 12: 01 PM EST Narrative [facility] - 05/04/2024 Unless otherwise specified, test(s) performed at: [facility], [address] [place] [address] TARGET MAN: Ben Conklin M.D. For any questions, please call customer service at FREQUENCY:OTHER Resulting Agency Comment Specimen source: Blood us Kol[place] Ignacio MD LAB BLOOD ORDERABLES Final Re sult [facility] See order comments or contact performing lab Unknown, [place] documented in this encounter Visit Diagnoses Not on filedocumented in this encounter Care Teams Mass Communications Professor Relationship Specialty Start Date End Date Name, MD Abdiel [address] [place] [address] PCP - General 01/22/19 documented as of this encounter
--- OUTSIDE RECORDS SUMMARY | 2024-05-29 13:16 | XMS_ITS | Encounter Summary ---
Author Organization [facility], Address [address] [place] [address] Phone Care Team Providers Care Hydraulic Boom Operator Name Role Phone Name, Abdiel COX Primary Care Provider [phone] Reason for Visit * Reason Onset Date Comments post op call 05/13/2024 Encounter Details Date Type Department Care Team (Late st Contact Info) Description 05/13/2024 Telephone [facility] - V[facility] Access Center [address] [facility] [place] [phone] Ellie Virgen [address] [place] [phone] post op call Social History Tobacco Use [...] visit [facility] - [facility] [address] [place] [address] documented as of this encounter Visit Diagnoses Not on filedocumented in this encounter Care Teams Hydraulic Boom Operator Relationship Specialty Start Date End Date Name, MD Abdiel [address] [place] [address] PCP - General 01/22/19 documented as of this encounter
--- OUTSIDE RECORDS SUMMARY | 2024-05-29 13:16 | XMS_ITS | Encounter Summary ---
Author Organization [facility], Address [address] [place] [address] Phone Care Team Providers Care Packing Line Operator Name Role Phone Name, Abdiel COX Primary Care Provider [phone] Encounter Details Date Type Department Care Team (Late Contact Info) Description 05/16/2024 Orders Only [facility] [address] [place] [phone] Kol[place] Ignacio MD [address] [facility] [place] [phone] Social History Tobacco Use Types Packs/Day Years [...] visit [facility], - Vascular Access Center [address] [place] [address] [place] [phone] documented as of this encounter Procedures Procedure Name Priority Date/Time Associated Diagnosis Comments HEMATOLOGY Routine 05/16/2024 documented in this encounter Results * (ABNORMAL) HEMATOLOGY (05/16/2024) Hemoglobin 10.0(L) 14.0 - 18.0 g/dL [facility] Hemoglobin x 3 30(L) 42.0 - 54.0 % [facility] 05/16/2024 05/18/2024 11: 48 AM EST Narrative [facility] - 05/18/2024 Unless otherwise specified, test(s) performed at: [facility], [address] [place] [address] CLINICAL ACCOUNT LIAISON: Ben Conklin M.D. For any questions, please call customer service at FREQUENCY:OTHER Resulting Agency Comment Specimen source: Blood us [place] Ignacio MD LAB BLOOD ORDERABLES Final Re sult [facility] See order comments or contact performing lab Unknown, [place] documented in this encounter Visit Diagnoses Not on filedocumented in this encounter Care Teams Packing Line Operator Relationship Specialty Start Date End Date Name, MD Abdiel [address] [place] [address] PCP - General 01/22/19 documented as of this encounter
--- OUTSIDE RECORDS SUMMARY | 2024-05-29 13:16 | XMS_ITS | Encounter Summary ---
Author Organization [employer] Address [address] [facility] 7t [place] [address] Care Team Providers Care Pie Topper Name Role Phone Name, Abdiel COX Primary Care Provider Encounter Details Date Type Department Care Team (Late st Contact Info) Description 05/23/2022 Orders Only [facility] [address] [place], [place] [phone] Lawanda Blanca LPN Social History Tobacco Use [...] Description 06/12/2024 10:30 AM EDT Office Visit [facility] MEDICINE [address] [place] [address] [phone] Name, MD Abdiel [address] [place] [address] 07/12/2024 3:15 PM EDT Office Visit [address] [address] Saulo Cerna MD [address] [place], [place] [phone] 07/24/2024 11:00 AM EDT Office Visit [facility] OPTOMETRY [address] [place], [place] [phone] Andra Stanley, STACY [address] [place], [place] [phone] documented as of this encounter Visit Diagnoses Not on filedocumented in this encounter Care Teams Pie Topper Relationship Specialty Start Date End Date Name, MD Abdiel [address] [place], [place] [phone] PCP - General Family Medicine 03/20/18 documented as of this encounter
== END 2024-05-29 12:52 | disposition home or self-care (01) ==
LOC: HO.HCS 11:15
PROVIDERS: PCP Internal Medicine Geriatric Medicine; Visit Provider Internal Medicine Cardiovascular Disease
DX: I10 Essential (primary) hypertension (principal); I25.10 Atherosclerotic heart disease of native coronary artery without angina pectoris; I42.9 Cardiomyopathy, unspecified
CPT/HCPCS: 99214; G2211

== ENCOUNTER → 2024-05-29 11:14 | Outpatient (BNVA) | payer MEDICARE, MEDICAID, SELFPAY | PROVIDERS: PCP Internal Medicine Geriatric Medicine; Visit Provider Internal Medicine Cardiovascular Disease | DX: I25.10 Atherosclerotic heart disease of native coronary artery without angina pectoris (principal); I42.9 Cardiomyopathy, unspecified; I10 Essential (primary) hypertension | CPT/HCPCS: 99212 ==

== ENCOUNTER → 2024-06-14 15:04 | Outpatient (BNVA) | payer MEDICARE, MEDICAID, SELFPAY | PROVIDERS: PCP Internal Medicine Geriatric Medicine; Visit Provider Internal Medicine Cardiovascular Disease ==

== ENCOUNTER → 2024-06-28 10:15 | Outpatient (BNVA) | payer MEDICARE, MEDICAID, SELFPAY | PROVIDERS: PCP Internal Medicine Geriatric Medicine; Visit Provider Internal Medicine Cardiovascular Disease | DX: Z13.89 Encounter for screening for other disorder (principal) ==

== ENCOUNTER → 2024-07-26 10:00 | Outpatient (BNVA) | payer MEDICARE, MEDICAID, SELFPAY | PROVIDERS: PCP Internal Medicine Geriatric Medicine; Visit Provider Internal Medicine Cardiovascular Disease ==

== ENCOUNTER → 2024-08-14 09:55 | Outpatient (BNVA) | payer MEDICARE, MEDICAID, SELFPAY | PROVIDERS: PCP Internal Medicine Geriatric Medicine; Visit Provider Internal Medicine Cardiovascular Disease ==

== ENCOUNTER 2024-12-09 10:10 | Outpatient (AMB) | payer MEDICARE, MEDICAID, SELFPAY ==
[2024-12-09 10:17] VITALS: BP 142/64; PULSE 66; BMI 25.0
--- NOTE | 2024-12-09 10:17 | MHC.OFFVIS ---
Vital Signs 12/09/24 10:17 Height 5 ft 7 in Weight 159 lb 9.835 oz BMI 25.0 BP 142/64 H Blood Pressure Location Lt brachial Position Sitting Pulse 66 Pulse Source Monitor Intake Visit Reasons: 6 mth f/up Intake Note: 6 month follow up Escort Service Attendant Services: Escort Service Attendant Offered & Declined Accompanied by: Daughter Allergies No Known Allergies Allergy (Verified 12/09/24 10:21) Medication List - Last Reconciled 12/09/24 by Erickson Muir MD acetaminophen (Tylenol) 325 mg PO QID PRN albuterol sulfate 90 mcg/actuation 0 mcg inhalation amlodipine 10 mg PO DAILY aspirin 81 mg PO DAILY atorvastatin 40 mg PO DAILY calcitriol 0.5 mcg PO 3XW carvedilol 6.25 mg PO BID cinacalcet 60 mg PO 3XW ferric citrate (Auryxia) 630 mg PO TID hydrochlorothiazide 12.5 mg PO DAILY trazodone 25 mg PO BEDTIME PRN HPI Comments Details: David comes for follow-up, accompanied by his daughter. We notice that his carvedilol doses been reduced to 6.25 mg b.i.d. compared to his prior dose of 25 mg b.i.d.. Unsure, and patient not sure as to when this happened. Patient has been noticing elevated blood pressure in the range of 150 systolic most of the time. This happened even including during dialysis. Post dialysis says blood pressure is in the 130s and 140. He has been withheld any significant low blood pressure issues. No lightheadedness. No syncope. No orthopnea, PND, leg edema. No exertional chest pain. He said he walks around is housing complex about 2 times. He said he gets tired after that. No chest pain. No lightheadedness, syncope. No prolonged palpitations. [facility] Medical History Cardiomyopathy Dyspnea Asthma-COPD overlap syndrome Hiatal hernia Diabetes ESRD (end stage renal disease) Chronic restrictive lung disease GERD (gastroesophageal reflux disease) Chronic cough Surgical History (Updated 12/09/24 @ 12:06 by Erickson Muir MD) S/P CABG x 3 Social History Patient Tobacco Use Status: Never used Tobacco Review of Systems Const Denies daytime sleepiness, Denies difficulty sleeping, Denies snoring, Denies stops breathing during sleep and Denies weakness Card Denies chest pain, Denies rapid heart rate, Denies irregular heart rhythm, Denies claudication, Denies leg edema, Denies lightheadedness, Denies palpitations, Denies dyspnea, Denies dyspnea on exertion, Denies orthopnea, Denies paroxysmal nocturnal dyspnea and Denies slow heart rate Resp Denies cough, Denies dyspnea, Denies dyspnea on exertion and Denies snoring GI Reports no additional complaints, Denies hematochezia, Denies change in stool character and Denies dyspepsia Musc Denies abnormal gait, Denies muscle weakness and Denies numbness Neuro Denies abnormal gait, Denies numbness and Denies weakness Endo Denies palpitations Physical Exam Vital Signs: Last Vital Signs Pulse 66 12/09/24 10:17 BP 142/64 H 12/09/24 10:17 BMI result Body Mass Index 25.0 Const General: cooperative, healthy appearing, comfortable and no acute distress Orientation/consciousness: patient oriented x3 Neck Neck: Yes normal visual inspection and Yes no JVD Resp Effort & Inspection: normal respiratory effort Auscultation: clear to auscultation bilaterally, no rales, no rhonchi and no wheezes Cardio Jugular venous distension: no JVD Rate: regular rate Rhythm: regular rhythm Heart sounds: S1 normal heart sound present, S2 normal heart sound present, Murmur heart sound present continuous (Probably related to AV fistula) at the right sternal border and systolic early and no rubs Neuro General: patient oriented x3 Extrem Other: right radial cath site well healed, easily palpable radial pulse, right hand assessment normal General: Yes normal to inspection Psych Appearance: grossly normal Mental Status: mental status grossly normal Speech and movement: Normal speech and movement present Office Procedures EKG Details: EKG shows normal sinus rhythm with first-degree AV block with LVH with repolarization abnormality 12684-[id number], Complete Assessment & Plan Assessment & Plan (1) CAD (coronary artery disease): Code(s): I25.10 - Atherosclerotic heart disease of [place] coronary artery without angina pectoris Category: Medical Plan: Coronary artery disease status post three-vessel coronary artery bypass grafting about a year ago. Doing well from that perspective with no symptoms of angina. Continue aggressive medical therapy. Continue low-dose aspirin therapy for life. Continue high-intensity statin therapy with target goal LDL less than 60 mg/dL. Continue aggressive blood pressure control, see below. Importance of good blood pressure control was discussed. (2) Cardiomyopathy: Code(s): I42.9 - Cardiomyopathy, unspecified Category: Medical Plan: Ischemic cardiomyopathy with auks-or-kbkkorlh LV systolic dysfunction. No signs or symptoms of heart failure. Currently on dialysis 3 days a week. Consider angiotensin receptor antagonist therapy given his cardiomyopathy process although this will need to be cleared by Nephrology. Continue carvedilol and uptitrate carvedilol as tolerated for neurohormonal modulation. Follow-up echocardiogram in 6 months time. (3) Uncontrolled hypertension: Code(s): I10 - Essential (primary) hypertension Category: Medical Plan: Uncontrolled hypertension, currently on low-dose of carvedilol. Will further increase carvedilol to 12.5 mg b.i.d.. Advised to monitor blood pressure at home maintain a log. Goal blood pressure less than 140 systolic. Importance of good blood pressure control was discussed. Low-salt diet was discussed. Advised to call me in 1 month's time to see what his blood pressure readings are at home and at dialysis center. If remains elevated can further uptitrate carvedilol. Will follow up in the clinic otherwise in 6 months time, sooner p.r.n.. Thank you for allowing me to partake in his care Orders: Orders CA echo transthoracic complete 6 Months I42.9 - Cardiomyopathy, unspecified Medications: New carvedilol (Coreg) must administer with a meal/food 12.5 mg PO BID 60 tabs 5RF Coding Level of Care Code Est Pt Level 4 (13490) Complex EM visit Add On G2211 Diagnoses CAD (coronary artery disease) I25.10 Cardiomyopathy I42.9 Uncontrolled hypertension I10 CPT Codes EKG - CPT: 26648-[id number], Complete ([id number])
--- OUTSIDE RECORDS SUMMARY | 2024-12-09 12:30 | XMS_ITS | Encounter Summary ---
Author Organization [facility], Address [address] [place] [address] Phone Care Team Providers Care Compensation Director Name Role Phone Name, Abdiel COX Primary Care Provider [phone] Reason for Visit * Reason Comments Med Refill Encounter Details Date Type Department Care Team ([facility] Contact Info) Description 07/23/2020 Refill [facility] [address] [place] [address] Vinay Santiago MD [address] [place] [address] [place] [phone] Social History Tobacco Use Types Packs/Day Years [...] Department Care Team (Late Contact Info) Description 01/27/2025 10:00 AM EST Procedure visit [facility], - Vascular Access Center [address] [place] [address] [place] [phone] documented as of this encounter Visit Diagnoses Not on filedocumented in this encounter Care Teams Compensation Director Relationship Specialty Start Date End Date Name, MD Abdiel [address] [place] [address] PCP - General 01/22/19 documented as of this encounter
--- OUTSIDE RECORDS SUMMARY | 2024-12-09 12:30 | XMS_ITS | Encounter Summary ---
Author Organization [employer] Address [address] [place] [address] 7t [place] [address] Care Team Providers Care Coding Quality Analyst Name Role Phone Name, Abdiel COX Primary Care Provider [phone] Lenka Antoine PharmD Unavailable Encounter Details Date Type Department Care Team (Late st Contact Info) Description 06/27/2022 Orders Only [facility] MED & PEDS [address] [place] [address] Lawanda Blanca LPN Social History Tobacco Use [...] Care Team (Late st Contact Info) Description 01/06/2025 11:30 AM EDT Medication Management [facility] MEDICINE [address] [place] [address] Lenka Antoine, PharmD [address] [place] [address] documented as of this encounter Visit Diagnoses Not on filedocumented in this encounter Care Teams Coding Quality Analyst Relationship Specialty Start Date End Date Name, MD Abdiel [address] [place] [address] PCP - General Family Medicine 03/20/18 Lenka Antoine, PharmD [address] [place] [address] Pharmacist Pharmacy 11/08/24 documented as of this encounter
--- OUTSIDE RECORDS SUMMARY | 2024-12-09 12:30 | XMS_ITS | Encounter Summary ---
Author Organization [employer] Address [address] [place] [address] 7t [place] [address] Care Team Providers Care Evaporative Cooler Installer Name Role Phone Name, Abdiel COX Primary Care Provider [phone] Lenka Antoine PharmD Unavailable Encounter Details Date Type Department Care Team ([facility] Contact Info) Description 05/23/2022 Orders Only [facility] MED & PEDS [address] [place], [place] [phone] Lawanda Blanca LPN Social History Tobacco Use [...] Upcoming Encounters Date Type Department Care Team ([facility] Contact Info) Description 01/06/2025 11:30 AM EDT Medication Management [facility] MEDICINE [address] [place] [address] PuiaOmairasa, PharmD [address] [place], [place] [phone] documented as of this encounter Visit Diagnoses Not on filedocumented in this encounter Care Teams Evaporative Cooler Installer Relationship Specialty Start Date End Date Name, MD Abdiel [address] [place] [address] PCP - General Family Medicine 03/20/18 Lenka Antoine, Surinder [address] [place] [address] Pharmacist Pharmacy 11/08/24 documented as of this encounter
--- OUTSIDE RECORDS SUMMARY | 2024-12-09 12:31 | XMS_ITS | Encounter Summary ---
Author Organization [facility], Address [address] [place] [address] Phone Care Team Providers Care Computer Support Technician Name Role Phone Name, Abdiel COX Primary Care Provider [phone] Encounter Details Date Type Department Care Team (Late Contact Info) Description 12/05/2024 Documentation Only [facility] [address] [facility] [place] [address] [place] [address] [place] [phone] Social History Tobacco Use Types Packs/Day Years [...] Care Team (Late st Contact Info) Description 01/27/2025 10:00 AM EST Procedure visit [facility] - Vascular Access Center [address] [place] [phone] documented as of this encounter Visit Diagnoses Not on filedocumented in this encounter Care Teams Computer Support Technician Relationship Specialty Start Date End Date Name, MD Abdiel [address] [place] [address] PCP - General 01/22/19 documented as of this encounter
--- OUTSIDE RECORDS SUMMARY | 2024-12-09 12:31 | XMS_ITS | Encounter Summary ---
Author Organization [employer] Address [address] [facility] 7t [place] [address] Care Team Providers Care Release And Technical Records Clerk Name Role Phone Name, Abdiel COX Primary Care Provider [phone] Lenka Antoine PharmD Unavailable [phone] Encounter Details Date Type Department Care Team ([facility] st Contact Info) Description 08/03/2023 Telephone [facility] MEDICINE [address] [place], [place] [phone] Name, MD Abdiel [address] [place], [place] [phone] Social History Tobacco Use Types Packs/Day Years [...] Description 01/06/2025 11:30 AM EDT Medication Management [facility] MEDICINE [address] [place] [address] Lenka Antoine PharmD [address] [place] [address] documented as of this encounter Visit Diagnoses Not on filedocumented in this encounter Additional Health Concerns Assessment Noted Time PHQ-9 Depression Total Score: 0 07/07/19 23 9:53 AM EDT documented as of this encounter Care Teams Release And Technical Records Clerk Relationship Specialty Start Date End Date Name, MD Abdiel [address] [place] [address] PCP - General Family Medicine 03/20/18 Lenka Antoine PharmD [address] [place] [address] Pharmacist Pharmacy 11/08/24 documented as of this encounter
--- OUTSIDE RECORDS SUMMARY | 2024-12-09 12:31 | XMS_ITS ---
Author Organization [facility] Care Team Providers Care Tool Tender Name Role Phone Alexandra Parra Unavailable Unavailable Tamiko Swartz Unavailable Unavailable Lawanda Bone Unavailable Unavailable Dalia Rogers Unavailable Unavailable Richar Beckett Unavailable Unavailable Allergies and adverse reactions No Known Allergies Care Team Name Role Address Phone Organization Dates Richar Beckett PCP [address] [place] [address], [address], [facility] (Office): : [facility] 10/12/2023 - 10/25/2023 Alexandra Parra [address], [address], [facility] (Office): : [facility] 10/12/2023 - 10/25/2023 Tamiko Swartz [address] [place], [address], [facility] (Office): : [facility] 10/12/2023 - 10/25/2023 Lawanda Bone [address] [place] [address], [address], [facility] (Office): : [facility] 10/12/2023 - 10/25/2023 Dalia Rogers [address] [facility] [address], [place], [address], [facility] (Office): : [facility] 10/12/2023 - 10/25/2023 Immunizations Immunization Status Vaccine Details Vaccine Code CodeSystem Tree e Notes Influenza cancelled Influenza, split virus, trivalent, injectable, contains preservative 141 CVX created date: 10/24/2023 consent date: 10/24/2023 Mental Status Section Date Assessment Total Score Description 10/25/2023 BIMS 09 moderate cognit cricket impairment CAM 0 No delirium ind icated PHQ-9 00 10/18/2023 BIMS 09 moderate cognit cricket impairment CAM 0 No delirium ind icated PHQ-9 00 Problems Problem # Description Date of onset Resolved Date Code CodeSystem Concern Status 1 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 10/12/[address] active 2 ATHEROSCLEROTIC HEART DISEASE OF [place] CORONARY ARTERY WITHOUT ANGINA PECTORIS 10/12/[address] active 3 CHRONIC OBSTRUCTIVE PULMONARY DISEASE, UNSPECIFIED 10/12/[address] active 4 DEPENDENCE ON RENAL DIALYSIS 10/12/[address] active 5 END STAGE RENAL DISEASE 10/12/[address] active 6 HEART FAILURE, UNSPECIFIED 10/12/[address] active 7 HYPERGLYCEMIA, UNSPECIFIED 10/12/[address] active 8 ISCHEMIC CARDIOMYOPATHY 10/12/[address] active 9 METABOLIC ENCEPHALOPATHY 10/12/[address] active 10 MUSCLE WASTING AND ATROPHY, NOT ELSEWHERE CLASSIFIED, MULTIPLE SITES 10/12/[address] active 11 PRESENCE OF AORTOCORONARY BYPASS GRAFT 10/12/[address] active 12 TYPE 2 DIABETES MELLITUS WITHOUT COMPLICATIONS 10/12/[address] active 13 UNSPECIFIED PROTEIN-CALORIE MALNUTRITION 10/12/[address] active Reason for Referral No Reasons for Referral Entered Social History Social History Observation Description Start Date End Date Code Code System Current Smoking Status Tobacco smoking consumption unknown 158235701 SNOMED CT Sex Assigned At Male 1940 80747-9 [facility] Gender Identity Sexual Orientation Vital Signs Code Code System Vitals Name Values and Units Timing Information 9279-1 [facility] Respiratory Rate Value=18.0 Units=/m in 10/25/2023 8462-4 [facility] Blood Pressure-Diastolic Value=72 Un its=mmHg 10/25/2023 8480-6 [facility] Blood Pressure-Systolic Fyixk=262 Un its=mmHg 10/25/2023 8310-5 [facility] Body Temperature Value=98.1 Units= F 10/25/2023 8867-4 [facility] Heart rate Value=75.0 Units=/min 09/2023 81682-9 [facility] O2 % BldC Oximetry Value=98.0 Units= % 10/25/2023 86444-9 [facility] Pain Level Value=0.0 10/25/2023 2339-0 [facility] Blood Sugar Oaovf=770.0 Units=mg/dL 10/25/2023 95626-2 [facility] Weight Sxked=488.0 Units=Lbs 08/2023 8302-2 [facility] Height Value=66.0 Units=Inches 10/19/2023
--- OUTSIDE RECORDS SUMMARY | 2024-12-09 12:31 | XMS_ITS | Encounter Summary ---
Author Organization [employer] Address [address] [facility] 7t [place] [address] Care Team Providers Care Charter Boat Operator Name Role Phone Name, Abdiel COX Primary Care Provider [phone] Lenka Antoine PharmD Unavailable [phone] Reason for Visit * Reason Comments Med Refill Encounter Details Date Type Department Care Team (Late st Contact Info) Description 05/22/2024 Refill [facility] MED[facility] [address] [place], [place] [phone] Name, MD Abdiel [address] [place], [place] [phone] Social History Tobacco Use Types Packs/Day Years [...] Description 01/06/2025 11:30 AM EDT Medication Management [facility] [address] [place] [address] Lenka Antoine, PharmD [address] [place] [address] documented as of this encounter Visit Diagnoses Not on filedocumented in this encounter Additional Health Concerns Assessment Noted Time PHQ-9 Depression Total Score: 0 07/07/19 9:53 AM EDT documented as of this encounter Care Teams Charter Boat Operator Relationship Specialty Start Date End Date Name, MD Abdiel [address] [place] [address] PCP - General Family Medicine 03/20/18 Lenka Antoine, PharmD [address] [place] [address] Pharmacist Pharmacy 11/08/24 documented as of this encounter
--- OUTSIDE RECORDS SUMMARY | 2024-12-09 12:31 | XMS_ITS | Encounter Summary ---
Author Organization [employer] Address [address] [facility] 7t [place] [address] Care Team Providers Care A And P Technician Name Role Phone Name, Abdiel COX Primary Care Provider [phone] Lenka Antoine PharmD Unavailable Reason for Visit * Reason Onset Date Comments Call Back Request 11/03/2023 Encounter Details Date Type Department Care Team (Late st Contact Info) Description 11/03/2023 Telephone [facility] [address] [place], [place] [phone] Name, MD Abdiel [address] [place], [place] [phone] Call Back Request Social History Tobacco Use [...] with niacinamide, (Fiasp FlexTouch) 100 UNIT/ML injection teletypewriter installer did talk with pharmacy and the medication is in back order and won't be ready until Monday documented in this encounter Plan of Treatment Upcoming Encounters Date Type Department Care Team (Late st Contact Info) Description 01/06/2025 11:30 AM EDT Medication Management [facility] [address] [place] [address] Lenka Antoine, PharmD [address] [place] [address] documented as of this encounter Visit Diagnoses Not on filedocumented in this encounter Additional Health Concerns Assessment Noted Time PHQ-9 Depression Total Score: 0 07/07/19 23 9:53 AM EDT documented as of this encounter Care Teams A And P Technician Relationship Specialty Start Date End Date Name, MD Abdiel [address] [place] [address] PCP - General Family Medicine 03/20/18 Lenka Antoine, TatiD [address] [place] [address] Pharmacist Pharmacy 11/08/24 documented as of this encounter
--- OUTSIDE RECORDS SUMMARY | 2024-12-09 12:31 | XMS_ITS | Encounter Summary ---
Author Organization [facility], Address [address] [place] [address] Phone Care Team Providers Care Hvac Manager Name Role Phone Name, Abdiel COX Primary Care Provider [phone] Encounter Details Date Type Department Care Team (Late Contact Info) Description 12/05/2024 Orders Only [facility] [address] [place] [phone] Kolton Ignacio MD [address] [facility] [address] [place] [phone] Social History Tobacco Use Types Packs/Day Years [...] visit [facility], - [facility] [address] [place] [address] [place] [phone] documented as of this encounter Procedures Procedure Name Priority Date/Time Associated Diagnosis Comments IMMUNO CHEMISTRY Routine 12/05/2024 HEMATOLOGY Routine 12/05/2024 CHEMISTRY Routine 12/05/2024 CHEMISTRY Routine 12/05/2024 documented in this encounter Results * IMMUNO CHEMISTRY (12/05/2024) Hep B Surface Ag Negative Negative [facility] 12/05/2024 12/06/2024 9:0 8 AM EDT Narrative Resulting Agency Comment Specimen source: Serum Kolton Ignacio MD LAB BLOOD ORDERABLES Final Re sult [facility] See order comments or contact performing lab Unknown, [place] * (ABNORMAL) [facility] (12/05/2024) Creatinine 8.86(H) 0.60 - 1.30 mg/dL [facility] Sodium 138 136 - 145 mEq/L [facility] Potassium 5.4(H) 3.5 - 5.1 mEq/L [facility] Bicarbonate (CO2) 22 22 - 29 mEq/L [facility] Calcium 8.9 8.4 - 10.2 mg/dL [facility] Corrected Calcium 8.6 8.4 - 10.2 mg/dL [facility] Comment: Corrected Calcium is not equivalent to measured Ionized Calcium. Phosphorus 4.4 2.6 - 4.5 mg/dL [facility] Calcium Phosphorus Product 39 0 - 54 [facility] Calcium Phosporus Product, Cor 38 0 - 54 [facility] ALT (SGPT) 25 7 - 52 U/L [facility] Albumin 4.4 3.5 - 5.2 g/dL [facility] Glucose 122(H) 70 - 100 mg/dL [facility] Ferritin 1,154(H) 22 - 322 ng/mL [facility] Iron 94 45 - 160 mcg/dL [facility] UIBC 112(L) 155 - 355 mcg/dL [facility] TIBC 206 185 - 515 mcg/dL [facility] Iron Saturation (TSat) 46 20 - 55 % [facility] 12/05/2024 12/06/2024 9:0 8 AM EDT Narrative [facility] - 12/06/2024 Unless otherwise specified, test(s) performed at: [facility], [address] [place] [id number] POSTMASTER RELIEF: Ben Conklin M.D. For any questions, please call customer service at FREQUENCY:MONTHLY Resulting Agency Comment Specimen source: Serum Kolton Ignacio MD LAB BLOOD ORDERABLES Final Re sult Performing Organization Address City/[facility]/ZIP Co de Phone Number [facility] See order comments or contact performing lab Unknown, [place] * (ABNORMAL) HEMATOLOGY (12/05/2024) WBC 7.02 4.80 - 10.80 1000/mcL [facility] RBC 3.43(L) 4.70 - 6.10 mill/mcL [facility] Hematocrit 32.4(L) 42.0 - 52.0 % [facility] MCV 94 80 - 100 fl [facility] MCH 30.9 27.0 - 31.0 pg [facility] MCHC 32.7 30.0 - 36.0 g/dL [facility] RDW 14.0 11.5 - 14.5 % [facility] Hemoglobin 10.6(L) 14.0 - 18.0 g/dL [facility] Hemoglobin x 3 31.8(L) 42.0 - 54.0 % [facility] 12/05/2024 12/06/2024 10: 07 AM EDT Narrative [facility] - 12/06/2024 Unless otherwise specified, test(s) performed at: [facility], [address] [place] [id number] [employer]MA[employer]IEF: Ben Conklin M.D. For any questions, please call customer service at FREQUENCY:MONTHLY Resulting Agency Comment Specimen source: Blood Kolton Ignacio MD LAB BLOOD ORDERABLES Final Re sult [facility] See order comments or contact performing lab Unknown, [place] * (ABNORMAL) [facility] (12/05/2024) PTH 736(H) 16 - 80 pg/mL [facility] 12/05/2024 12/06/2024 9:3 4 AM EDT Narrative [facility] - 12/06/2024 Unless otherwise specified, test(s) performed at: [facility], [address] [place] [id number] [employer]MASTER RELIEF: Ben Conklin M.D. For any questions, please call customer service at FREQUENCY:MONTHLY Resulting Agency Comment Specimen source: Plasma us Kolton Ignacio MD LAB BLOOD ORDERABLES Final Re sult [facility] See order comments or contact performing lab Unknown, [place] documented in this encounter Visit Diagnoses Not on filedocumented in this encounter Care Teams Hvac Manager Relationship Specialty Start Date End Date Name, MD Abdiel [address] [place] [address] PCP - General 01/22/19 documented as of this encounter
--- OUTSIDE RECORDS SUMMARY | 2024-12-09 12:31 | XMS_ITS | Encounter Summary ---
Author Organization [employer] Address [address] [facility] 7t [place] [address] Care Team Providers Care Plant Chief Name Role Phone Name, Abdiel COX Primary Care Provider [phone] Lenka Antoine PharmD Unavailable Reason for Visit * Reason Onset Date Comments Appointment Request 05/17/2023 Encounter Details Date Type Department Care Team (Late st Contact Info) Description 05/17/2023 Telephone [facility] [address] [place], [place] [phone] Name, MD Abdiel [address] [place], [place] [phone] Appointment Request Social History Tobacco Use Types [...] Description 01/06/2025 11:30 AM EDT Medication Management [facility] [address] [place] [address] Lenka Antoine, PharmD [address] [place] [address] documented as of this encounter Visit Diagnoses Not on filedocumented in this encounter Additional Health Concerns Assessment Noted Time PHQ-9 Depression Total Score: 0 07/07/19 23 9:53 AM EDT documented as of this encounter Care Teams Plant Chief Relationship Specialty Start Date End Date Name, MD Abdiel [address] [place] [address] PCP - General Family Medicine 03/20/18 Lenka Antoine, PharmD [address] [place] [address] Pharmacist Pharmacy 11/08/24 documented as of this encounter
--- OUTSIDE RECORDS SUMMARY | 2024-12-09 12:31 | XMS_ITS | Encounter Summary ---
Author Organization [employer] Address [address] [facility] 7t [place] [address] Care Team Providers Care Dynamics Ax Consultant Name Role Phone Name, Abdiel COX Primary Care Provider [phone] Lenka Antoine PharmD Unavailable [phone] Reason for Visit * Reason Comments Med Refill Encounter Details Date Type Department Care Team (Late st Contact Info) Description 08/17/2024 Refill [facility] [address] [place], [place] [phone] Name, MD Abdiel [address] [place] [address] Hypertension, unspecified type Social History Tobacco Use Types Packs/Day Years [...] Description 01/06/2025 11:30 AM EDT Medication Management [facility] [address] [place] [address] Lenka Antoine PharmD [address] [place] [address] documented as of this encounter Visit Diagnoses Diagnosis Hypertension, unspecified type documented in this encounter Additional Health Concerns Assessment Noted Time PHQ-9 Depression Total Score: 0 07/07/19 23 9:53 AM EDT documented as of this encounter Care Teams Dynamics Ax Consultant Relationship Specialty Start Date End Date Name, MD Abdiel [address] [place] [address] PCP - General Family Medicine 03/20/18 Lenka Antoine, Surinder [address] [place] [address] Pharmacist Pharmacy 11/08/24 documented as of this encounter
--- OUTSIDE RECORDS SUMMARY | 2024-12-09 12:31 | XMS_ITS | Clinical Summary ---
Author Organization [employer] Address [address] [place] [address] [address] [place] [address] Care Team Providers Care Aerobics Teacher Name Role Phone Name, Abdiel COX Primary Care Provider [phone] Lenka Antoine PharmD Unavailable [phone] Allergies No known active allergies Medications * This document contains information received from the source organization and may not represent a complete record from that organization. Auryxia 1 GM 210 MG(Fe) tablet TAKE 3 TABLETS BY MOUTH THREE TIMES A DAY WITH MEALS. SWALLOW WHOLE, DO NOT CHEW OR CRUSH MEDICATION 3 Active calcitriol (Rocaltrol) 0.5 MCG capsule Take 0.5 mcg by mouth 3 (three) times a week. 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 5 Active omeprazole (PriLOSEC) [address] capsule Take 1 capsule by mouth Once per day. 5 Active albuterol 108 (90 Base) MCG/ACT inhalerIndicatio ns:Chronic obstructive pulmonary disease, unspecified COPD type ([facility]) Inhale 2 puffs Every 4-6 hours as needed for wheezing or shortness of breath. 18 g 2 5 Active traZODone (Desyrel) 50 MG tabletIndication s:Insomnia, unspecified type TAKE 1/2 TABLET BY MOUTH AT BEDTIME NEEDED FOR SLEEP 15 tablet 1 5 Active Additional Information Patient taking differently: No details specified, Reason: reports minimal effect w/ 1/2 tab, has taken 1 full tab with good effect, Reported on 12/09/2024 cinacalcet (Sensipar) 60 MG tablet Take 60 mg by mouth 3 (three) times a week. Administered at dialysis Active amLODIPine (Norvasc) 10 MG tabletIndication s:Benign essential hypertension Take 1 tablet (10 mg) by mouth in the morning. 90 tablet 3 5 Active aspirin (Aspirin Low Dose) 81 MG EC tabletIndication s:Hypercholester olemia,Atheroscl erosis of ho-chunk coronary artery of ho-chunk heart without angina pectoris Take 1 tablet (81 mg) by mouth in the morning. 90 tablet 1 5 Active atorvastatin (Lipitor) 40 MG tabletIndication s:Hypercholester olemia,Atheroscl erosis of ho-chunk coronary artery of ho-chunk heart without angina pectoris Take 1 tablet (40 mg) by mouth in the morning. 90 tablet 1 5 Active carvedilol (Coreg) 6.25 MG tabletIndication s:Benign essential hypertension,Ath erosclerosis of ho-chunk coronary artery of ho-chunk heart without angina pectoris Take 1 tablet (6.25 mg) by mouth with breakfast and with evening meal. 180 tablet 3 5 Active Active Problems Problem Noted Date Diagnosed Date Ischemic cardiomyopathy 01/10/2024 Bilateral cataracts 12/29/2023 History of coronary artery bypass graft x 3 10/18 Assessment & Plan (11/01/2023 7:50 PM EDT): -appears to be recovering well. Weakness and decreased appetite most likely r/t chronic disease and recent surgery. Advised continued movement and physical activity as tolerated. Eat small meals frequently -followed by [facility] cardiac surgery Andra SHEFFIELD -scheduled to participate in cardiac rehab History of coronary artery bypass surgery 2023 Overview (09/19/2024): Last Assessment & Plan: -appears to be recovering well. Weakness and decreased appetite most likely r/t chronic disease and recent surgery. Advised continued movement and physical activity as tolerated. 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 Date Type Department Care Team Description 12/09/2024 Travel 11/08/2024 Telephone [facility] [address] [place] [phone] Abdiel August MD 11/08/2024 Telephone [facility] [address] [place] [phone] Lenka Antoine, PharmD 11/08/2024 Refill [facility] [address] [place] [phone] NameAbdiel MD Insomnia, unspecified type (Primary Dx); Chronic obstructive pulmonary disease, unspecified COPD type ([facility]) 11/08/2024 Travel 11/08/2024 Abstract [facility] [address] [place] [phone] Abdiel August MD 10/28/2024 Refill [facility] [address] [place] [phone] Abdiel August MD 09/23/2024 10:00 AM EDT Office Visit [facility] [address] [place] [phone] NameAbdiel MD Type 2 diabetes mellitus with chronic kidney disease on chronic dialysis, with long-term current use of insulin ([facility]) (Primary Dx); Hypertensive heart and renal disease with (congestive) heart failure ([facility]); ESRD on dialysis ([facility]); Ischemic cardiomyopathy 09/23/2024 Travel 09/19/2024 Telephone [facility] [address] [place] [address] Chery Cheung MA Chart Prep 09/09/2024 9:30 AM EDT Office Visit [facility] [address] [place] [address] Andra Stanley, STACY Presbyopia (Primary Dx) 09/09/2024 Travel from Last 3 Months Immunizations Immunization Administration Dates Next Due Influenza Quadrivalent Adjuvanted [...] Answer Date Recorded Patient Health Questionnaire-9 Score 12 09/23/2024 Patient Health Questionnaire-9 Score 12 09/23/2024 Last PHQ-9: Questionnaire Data Not on file 0 09/23/2024 Housing Stability Answer Date Recorded What is your housing situation today? I have gilberto kyleigh 09/23/[address] you li ve. Do you have problems with any of the following? None of the above 09/23/2024 Food Insecurity Answer Date Recorded Within the past 12 months, y ou worried that your food would run out before you got money to buy more: Never True 09/23/2024 Within the past 12 months,th e food you bought just didn't last and you didn't have enough money to get more: Never True 09/2024 Transportation Answer Date Recorded In the past 12 months, has l ack of transportation kept you from medical appts, meetings, work or from getting things needed for daily living? No 09/23/2024 Utilities Answer Date Recorded In the past 12 months, has t he electric, gas, oil or water company threatened to shut off services in your home? No 09/23/2024 Depression Answer Date Recorded Patient Health Questionnaire-2 Score 3 09/23/2024 Internet Access Answer Date Recorded Internet Access Q1 Yes 09/23/2024 Internet Access Q2 Not on file 09/23/2024 Sex and Gender Information Value Date Recorded Sex Assigned at Male 01/17/2022 10:29 AM EDT Legal Sex Male 10:29 AM EDT Gender Identity Choose not to disclose 10:29 AM EDT Sexual Orientation Choose not to disclose 2021 10:29 AM EDT Last Filed Vital Signs Vital Sign Reading Time Taken Comments Blood Pressure 138/62 12/09/2024 9:48 AM EDT Pulse 70 12/09/2024 9:48 AM EDT Temperature 36.6 C (97.8 F) 09/23/2024 10:11 AM EDT Respiratory Rate 18 09/23/2024 10:1 1 AM EDT Oxygen Saturation 97% 09/23/2024 10: 11 AM EDT Inhaled Oxygen Concentration - - Weight 72.5 kg (159 lb 12.8 oz) 025 10:11 AM EDT Height 170.2 cm (5' 7 ) 09/23/2024 10:1 1 AM EDT Body Mass Index 25.03 09/23/2024 10:11 AM EDT Plan of Treatment Upcoming Encounters Date Type Department Care Team (Late st Contact Info) Description 01/06/2025 11:30 AM EDT Medication Management [facility] [address] [place], [place] [phone] Lenka Antoine, PharmD [address] [place] [address] Health Maintenance Due Date Last Done Comments Derm Melanoma Skin Check 1942 RSV Patients and Patients Aged 60 years or older (1 - 1-dose 75+ series) 2017 Zoster Vaccines (2 of 2) 02/08/2021 12/14/2020 Lipid Panel 03/03/2022 03/03/2021, 06/17/2020 COVID-19 Vaccine ( season) 2024 01/10/2024, 12/24/2021, 09/04/2021, Additional history exists Influenza Vaccine (#1) 2024 , 12/21/2021, 12/14/2020, Additional history exists Depression Monitoring 03/26/2025 09/23/2024, 025 Diabetes: Hemoglobin A1C 03/26/2025 025, 11/01/2023, 06/23/2023, Additional history exists Alcohol/Substance Use Screening 09/23/2025 09/23/2024 Diabetes: Foot Exam 09/23/2025 09/23/2024, 09/23/2024, 09/23/2024, Additional history exists SDOH Screening 09/23/2025 09/23/2024 Tobacco Screening 09/23/2025 09/23/2024 DTaP/Tdap/Td Vaccines (2 - Td or Tdap) 02/01/2026 02/02/2016 Eye Exam 07/24/2026 07/24/2024, 05/09/2024, 07/24/2024, Additional history exists Pneumococcal Vaccine: 50+ Years Completed 11/15/2017, 09/30/2016 HIB Vaccines Aged Out No longer eligi [...] patient's age to complete this topic Meningococcal B Vaccine Aged Out No l onger eligible based on patient's age to complete [...] Procedure Name Priority Date/Time Associated Diagnosis Comments CBC AND DIFFERENTIAL - WAM AND NON-WAM Routine 11/03/2024 BASIC METABOLIC PANEL Routine 10/03/2024 POCT GLYCATED HEMOGLOBIN, TOTAL Routine 09/23/2024 10:13 AM EDT Type 2 diabetes mellitus with chronic kidney disease on chronic dialysis, with long-term current use of insulin ([facility]) POCT GLUCOSE Routine 09/23/2024 10:13 AM EDT Type 2 diabetes mellitus with chronic kidney disease on chronic dialysis, with long-term current use of insulin ([facility]) LIPID PANEL, STANDARD Routine 03/03/2021 8:39 AM EST from Last 3 Months or Most Recently Relevant to Health Maintenance Results * (ABNORMAL) CBC and differential (11/03/2024) Pathologist [facility] Hemoglobin 10.7(A) 13.5 - 16.0 g/dL Blood Venous blood specimen / Unknown Historical Provider MD LAB BLOOD ORDERABLES Rona l Result * Basic Metabolic Panel (10/03/2024) Pathologist [facility] Creatinine 9.19 mg/dL Potassium 4.9 3.4 - 5.5 mmol/L Sodium 138 137 - 147 mmol/L Blood Venous blood specimen / Unknown Historical Provider LAB BLOOD ORDERABLES Rona l Result * POCT HGB A1C (09/23/2024 10:13 AM EDT) Pathologist [facility] Hemoglobin A1C 5.6 4.0 - 5.7 % QC Media Lot # [id number] Lot# Expiration Date Blood 09/23/2024 10:1 3 AM EDT us [place] Name POINT OF CARE TEST ENTER/EDIT OR DERABLES Final Result * POCT Glucose (09/23/2024 10:13 AM EDT) Pathologist [facility] Glucose Blood, POC 156 60 - 200 mg/dL QC Media Lot # [id number] Lot# Expiration Date Blood Capillary blood specimen / Unknown 09/23/2024 10:13 AM EDT Abdiel Name POINT OF CARE TEST ENTER/EDIT OR DERABLES Final Result * (ABNORMAL) LIPID PANEL, STANDARD (03/03/2021 8:39 AM EST) Pathologist [facility] Chol/HDLC Ratio 5.6(H) <5.0 (calc) [facility] Cholesterol, Total 168 <200 mg/dL [facility] HDL Cholesterol 30(L) > OR = 40 mg/dL [facility] LDL Cholesterol 97 mg/dL (calc) [facility] Comment: Reference range: <100 Desirable range <100 mg/dL for primary prevention; <70 mg/dL for patients with CHD or diabetic patients with > or = 2 CHD risk factors. LDL-C is now calculated using the Jose-Corcoran calculation, which is a validated novel method providing better accuracy than the Friedewald equation in the estimation of LDL-C. Jose SS et al. JAZMIN. 2013;310(19): 6198-9792 (http://education.[facility].[employer]/faq/HDL220) Non-HDL Cholesterol 138(H) <130 mg/dL (calc) [facility] Comment: For patients with diabetes plus 1 major ASCVD risk factor, treating to a non-HDL-C goal of <100 mg/dL (LDL-C of <70 mg/dL) is considered a therapeutic option. Triglycerides 311(H) <150 mg/dL [facility] Comment: If a non-fasting specimen was collected, consider repeat triglyceride testing on a fasting specimen if clinically indicated. Martina et al. J. of Clin. Lipidol. 2015;9:129-169. 03/03/2021 8:39 AM EST us Abdiel August MD LAB BLOOD ORDERABLES Final Resul t [facility] [address] from Last 3 Months or Most Recently Relevant to Health Maintenance [place] [place] [address] STANDARD MEDICARE Care Teams Aerobics Teacher Relationship Specialty Start Date End Date Name, MD Abdiel [address] [place] [phone] PCP - General Family Medicine 03/20/18 Lenka Antoine, TatiD [address] [place] [address] Pharmacist Pharmacy 11/08/24
--- OUTSIDE RECORDS SUMMARY | 2024-12-09 12:31 | XMS_ITS | Encounter Summary ---
Author Organization [employer] Address [address] [facility] [address] [place] [address] Care Team Providers Care Rocket Test Fire Worker Name Role Phone Name, Abidel COX Primary Care Provider [phone] Lenka Antoine PharmD Unavailable Encounter Details Date Type Department Care Team (Latest Contact Info) Description 12/09/2024 Travel Social History Tobacco Use Types Packs/Day Years [...] housing situation today? I have gilberto arizmendi 09/23/[address] you li [...] Description 01/06/2025 11:30 AM EDT Medication Management [facility] [address] [place] [address] Lenka Antoine PharmD [address] [place] [address] documented as of this encounter Visit Diagnoses Not on filedocumented in this encounter Additional Health Concerns Assessment Noted Time PHQ-9 Depression Total Score: 12 025 10:40 AM EDT documented as of this encounter Care Teams Rocket Test Fire Worker Relationship Specialty Start Date End Date Name, MD Abdiel [address] [place] [phone] PCP - General Family Medicine 03/20/18 Lenka Antoine, TatiD [address] [place] [phone] Pharmacist Pharmacy 11/08/24 documented as of this encounter
--- OUTSIDE RECORDS SUMMARY | 2024-12-09 12:31 | XMS_ITS | Clinical Summary ---
Author Organization [facility], Address [address] [place] [address] Phone Care Team Providers Care Paint Stock Clerk Name Role Phone Name, Abdiel COX Primary Care Provider [phone] Allergies No known active allergies Medications aspirin (ST JACEK) 81 MG EC tablet [...] ORALLY 2 TIMES A DAY 4 Active docusate sodium (COLACE) 100 MG capsule [...] mouth 1 (one) time each day Active traZODone (DESYREL) 50 MG tablet Take 25 mg by mouth at night if needed for sleep 5 Active amLODIPine (NORVASC) 5 MG tablet Take 5 mg by mouth 5 Active hydroCHLOROthia zide 12.5 MG tablet Take 12.5 mg by mouth 1 (one) time each day 5 Active Active Problems Problem Noted Date Diagnosed Date Bilateral cataracts 12/29/2023 History of coronary artery bypass grafting 10/31 Overview (12/29/2023): Last Assessment & Plan: -appears to be recovering well. Weakness and decreased appetite most likely r/t chronic disease and recent surgery. Advised continued movement and physical activity as tolerated. Eat small meals frequently -followed by [facility] cardiac surgery Andra SHEFFIELD -scheduled to participate in cardiac rehab Atherosclerotic heart diseas e of [place] coronary artery without angina pectoris 10/12/2023 Chronic obstructive pulmonary disease 10/12/2023 Heart failure 10/12/2023 Ischemic cardiomyopathy 10/12/2023 Metabolic encephalopathy 10/12/2023 Presence of aortocoronary bypass graft 07/25/202 4 Chronic cough 07/06/2022 Chronic kidney disease stage [...] Encounters Date Type Department Care Team Description 12/05/2024 Orders Only [facility] [address] [address] Kolton Ignacio MD 12/05/2024 Documentation Only [facility], [address] [place] [address] Tana Osorio MA 11/28/2024 Orders Only [facility] [address] [address] Kolton Ignacio MD 11/26/2024 Treatment [facility], [address] [place] [address] Andrew Vincent MD End stage renal disease; Dependence on renal dialysis 11/21/2024 Orders Only [facility] [address] [address] Kolton Ignacio MD 11/19/2024 Treatment [facility], [address] [place] [address] Kadie Slater, LIEUTENANT SHIFT SUPERVISOR-C End stage renal disease; Dependence on renal dialysis 11/14/2024 Orders Only [facility] [address] [address] Kolton Ignacio MD 11/09/2024 Treatment [facility], [address] [place] [address] Kadie Slater, LIEUTENANT SHIFT SUPERVISOR-C End stage renal disease; Dependence on renal dialysis 11/07/2024 Treatment [facility], [address] [place] [address] Andrew Vincent MD End stage renal disease; Dependence on renal dialysis 11/07/2024 Orders Only [facility] [address] [address] Kolton Ignacio MD 10/31/2024 Orders Only [facility] [address] [address] Kolton Ignacio MD 10/31/2024 Treatment [facility], [address] [place] [address] Andrew Vincent MD End stage renal disease; Dependence on renal dialysis 10/29/2024 Telephone [facility] [address] [place] [address] [place] [address] Lori Hummel 10/28/2024 10:00 AM EDT Procedure visit [facility] [address] [place] [address] Akbar Chappell MD End stage renal disease (HCC) (Primary Dx); 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>; Other mechanical complication of surgically created arteriovenous fistula, subsequent encounter 10/25/2024 Telephone [facility] [address] [place] [address] Zaida Maloney 10/24/2024 Orders Only [facility] [address] [address] Kolton Ignacio MD 10/22/2024 Treatment [facility] [address] [place] [address] Kadie Slater FNP-C End stage renal disease; Dependence on renal dialysis 10/17/2024 Orders Only [facility] [address] [address] Kolton Ignacio MD 10/10/2024 Orders Only [facility] [address] [address] Kolton Ignacio MD 10/03/2024 Orders Only [facility] [address] [address] Kolton Ignacio MD 10/01/2024 Treatment [facility] [address] [place] [address] Kadie Slater FNP-C End stage renal disease; Dependence on renal dialysis 09/26/2024 Orders Only [facility] [address] [address] Kolton Ignacio MD 09/26/2024 Treatment [facility] [address] [place] [address] Andrew Vincent MD End stage renal disease; Dependence on renal dialysis 09/24/2024 Treatment [facility] [address] [place] [address] Kadie Slater FNP-C End stage renal disease; Dependence on renal dialysis 09/19/2024 Orders Only [facility] [address] [address] Kolton Ignacio MD 09/17/2024 Treatment [facility] [address] [place] [address] Kadie Slater, GIGI-Fani End stage renal disease; Dependence on renal dialysis 09/12/2024 Orders Only [facility] [address] [place] [address] Kolton Ignacio MD from Last 3 Months [...] Sign Reading Time Taken Comments Blood Pressure 169/73 10/28/2024 8:52 AM EDT Pulse 69 10/28/2024 8:52 AM EDT Temperature 36 C (96.8 F) 10/28/2024 8:52 AM EDT Respiratory Rate 14 10/28/2024 8:52 AM EDT Oxygen Saturation 98% 10/28/2024 8:52 AM EDT Inhaled Oxygen Concentration - - Weight 71.7 kg (158 lb) 10/28/2024 8:52 AM EDT Height 170.2 cm (5' 7 ) 10/28/2024 8:52 AM EDT Body Mass Index 24.75 10/28/2024 8:52 AM EDT Plan of Treatment Upcoming Encounters Date Type Department Care Team (Late st Contact Info) Description 01/27/2025 10:00 AM EST Procedure visit [facility], - [facility] Center [address] [place] [phone] Health Maintenance Due Date Last Done Comments Hepatitis B Vaccine (1 of 5 - Risk Dialysis 4-dose series) 1960 Diabetes: Pedal Pulse Checked 06/07/2019 Diabetes: Sensory Foot Exam 06/07/2019 Diabetes: Visual Foot Exam 06/07/2019 Diabetes: Ophthalmology Exam 05/17/2024 05/17/2023 Influenza Vaccine (#1) 2024 , 12/14/2020, 12/12/2018, Additional history exists Diabetes: Hemoglobin A1C 01/03/2025 025, 09/23/2024, 07/04/2024, Additional history exists Pneumococcal Vaccine: 50+ Years Completed 11/15/2017, 11/15/2017, 09/30/2016, Additional history exists Pneumococcal Vaccine: Peds ( 0 to 5 Years) and At-Risk Patients (6 to 49 Years) Discontinued 11/15/2017, 11/15/2017, 09/30/2016, Additional history exists Procedures Procedure Name Priority Date/Time Associated Diagnosis Comments IMMUNO CHEMISTRY Routine 12/05/2024 CHEMISTRY Routine 12/05/2024 HEMATOLOGY Routine 12/05/2024 CHEMISTRY Routine 12/05/2024 HEMATOLOGY Routine 11/28/2024 [facility] Routine 11/21/2024 HD KINETICS Routine 11/21/2024 CHEMISTRY Routine 11/21/2024 POST CHEMISTRY Routine 11/21/2024 HEMATOLOGY Routine 11/21/2024 HEMATOLOGY Routine 11/14/2024 IMMUNO CHEMISTRY Routine 11/07/2024 CHEMISTRY Routine 11/07/2024 CHEMISTRY Routine 11/07/2024 HEMATOLOGY Routine 11/07/2024 HEMATOLOGY Routine 10/31/2024 [facility] Routine 10/24/2024 HD KINETICS Routine 10/24/2024 POST CHEMISTRY Routine 10/24/2024 CHEMISTRY Routine 10/24/2024 HEMATOLOGY Routine 10/24/2024 HEMATOLOGY Routine 10/17/2024 HEMATOLOGY Routine 10/10/2024 SPECIAL CHEMISTRY Routine 10/03/2024 IMMUNO CHEMISTRY Routine 10/03/2024 CHEMISTRY Routine 10/03/2024 HEMATOLOGY Routine 10/03/2024 CHEMISTRY Routine 10/03/2024 HEMATOLOGY Routine 09/26/2024 [facility] Routine 09/19/2024 HD KINETICS Routine 09/19/2024 POST CHEMISTRY Routine 09/19/2024 CHEMISTRY Routine 09/19/2024 HEMATOLOGY Routine 09/19/2024 HEMATOLOGY Routine 09/12/2024 from Last 3 Months Results * IMMUNO CHEMISTRY (12/05/2024) Only the most recent of3 resultswithin the time period is included. Hep B Surface Ag Negative Negative [facility] 12/05/2024 12/06/2024 9:0 8 AM EDT Narrative Resulting Agency Comment Specimen source: Serum us Kolton Ignacio MD LAB BLOOD ORDERABLES Final Re sul Performing Organization Address [facility] Co de Phone Number [facility] See order comments or contact performing lab Unknown, [place] * (ABNORMAL) HEMATOLOGY (12/05/2024) Only the most recent of13 resultswithin the time period is included. WBC 7.02 4.80 - 10.80 1000/mcL [facility] [...] 12/06/2024 Unless otherwise specified, test(s) performed at: [facility], [address] [place] [address] BALANCE WHEEL ARM BURNISHER: Ben Conklin M.D. For any questions, please call customer service at FREQUENCY:MONTHLY Resulting Agency Comment Specimen source: Blood Kolton Ignacio MD LAB BLOOD ORDERABLES Final [facility] Performing Organization Address [facility]/ZIP Co de Phone Number [facility] See order comments or contact performing lab Unknown, [place] * (ABNORMAL) [facility] (12/05/2024) Only the most recent of9 resultswithin the time period is included. Creatinine 8.86(H) 0.60 - 1.30 mg/dL [facility] [...] 12/05/2024 12/06/2024 9:0 8 AM EDT Narrative [facility] - 12/06/2024 Unless otherwise specified, test(s) performed at: [facility] [address] BALANCE WHEEL ARM BURNISHER: Ben Conklin M.D. For any questions, please call customer service at FREQUENCY:MONTHLY Resulting Agency Comment Specimen source: Serum Kolton Ignacio MD LAB BLOOD ORDERABLES Final Re sult [facility] See order comments or contact performing lab Unknown, [place] * HD KINETICS (11/21/2024) Only the most recent of3 resultswithin the time period is included. % Urea Reduction 77 65 - 80 % [facility] 11/21/2024 11/22/2024 9:2 1 AM EDT Narrative [facility] - 11/22/2024 Unless otherwise specified, test(s) performed at: [facility] [address] BALANCE WHEEL ARM BURNISHER: Ben Conklin M.D. For any questions, please call customer service at FREQUENCY:OTHER Resulting Agency Comment Specimen source: Plasma Kolton Ignacio MD LAB BLOOD ORDERABLES Final Re sult Performing Organization Address [facility]/ZIP Co de Phone Number [facility] See order comments or contact performing lab Unknown, [place] * POST CHEMISTRY (11/21/2024) Only the most recent of3 resultswithin the time period is included. Pathologist [facility] BUN Post Dialysis 17 6 - 19 mg/dL [facility] 11/21/2024 11/22/2024 9:2 1 AM EDT Narrative [facility] - 11/22/2024 Unless otherwise specified, test(s) performed at: [facility], [address] [place] [address] BALANCE WHEEL ARM BURNISHER: Ben Conklin M.D. For any questions, please call customer service at FREQUENCY:OTHER Resulting Agency Comment Specimen source: Plasma Kolton Ignacio MD LAB BLOOD ORDERABLES Final Re sult Performing Organization Address [facility] Co de Phone Number [facility] See order comments or contact performing lab Unknown, [place] * [facility] Results (11/21/2024) Only the most recent of3 resultswithin the time period is included. Pathologist [facility] eKt/V (Tattersall) 1.55 [facility] spKt/V Gotch 1.80 [facility] eKdrt/V 1.57 [facility] WSTDKT/V 2.6 [facility] nPCR_HD 1.47 [facility] eKt/V Gotch 1.57 [facility] eNPCR 1.30 [facility] spKt/V (Daugirdas II) 1.78 [facility] Center PCR 81.59 [facility] 11/21/2024 11/21/2024 [facility] [place] LAB BLOOD ORDERABLES Final Result [facility] Contact Performing lab Unknown, [place] * SPECIAL CHEMISTRY (10/03/2024) Pathologist [facility] Hemoglobin A1C 5.9 4.8 - 5.9 % [facility] 10/03/2024 10/04/2024 3:0 3 PM EDT Narrative [facility] - 10/04/2024 Unless otherwise specified, test(s) performed at: [facility], [address] [place] [address] BALANCE WHEEL ARM BURNISHER: Ben Conklin M.D. For any questions, please call customer service at FREQUENCY:MONTHLY Resulting Agency Comment Specimen source: Blood Kolton Ignacio MD LAB BLOOD BANK TEST ORDERABLE S Final Result [employer] See order comments or contact performing lab Unknown, [place] from Last 3 Months Insurance Medicare Medicaid [place] Care Teams Paint Stock Clerk Relationship Specialty Start Date End Date Name, MD Abdiel [address] [place] [address] PCP - General 01/22/19
--- OUTSIDE RECORDS SUMMARY | 2024-12-09 12:31 | XMS_ITS | Encounter Summary ---
Author Organization [facility], Address [address] [place] [address] Phone Care Team Providers Care Lockstitch Machine Operator Name Role Phone Name, Abdiel COX Primary Care Provider [phone] Reason for Visit * Reason Comments Med Refill Encounter Details Date Type Department Care Team (Late st Contact Info) Description 05/03/2019 Refill [facility] [address] [place] [phone] Vinay Santiago MD [address] [place] [phone] Social History Tobacco Use Types Packs/Day Years [...] visit [facility] - [facility] [address] [facility] [place] [phone] documented as of this encounter Visit Diagnoses Not on filedocumented in this encounter Care Teams Lockstitch Machine Operator Relationship Specialty Start Date End Date Name, MD Abdiel [address] [place] [address] PCP - General 01/22/19 documented as of this encounter
--- OUTSIDE RECORDS SUMMARY | 2024-12-09 12:31 | XMS_ITS | Encounter Summary ---
Author Organization [facility], Address [address] [place] [address] Phone Care Team Providers Care Quality Assurance Supervisor Final Name Role Phone Name, Abdiel COX Primary Care Provider [phone] Encounter Details Date Type Department Care Team (Late Contact Info) Description 08/26/2024 Documentation Only [facility] [address] [place] [address] [place] [address] [place] [phone] Social History Tobacco Use Types Packs/Day Years [...] visit [facility] - [facility] Center [address] [place] [phone] documented as of this encounter Visit Diagnoses Not on filedocumented in this encounter Care Teams Quality Assurance Supervisor Final Relationship Specialty Start Date End Date Name, MD Abdiel [address] [place] [address] PCP - General 01/22/19 documented as of this encounter
--- OUTSIDE RECORDS SUMMARY | 2024-12-09 12:31 | XMS_ITS | Encounter Summary ---
Author Organization [employer] Address [address] [facility] 7t [place] [address] Care Team Providers Care Director Of Solutions Architecture Name Role Phone Name, Abdiel COX Primary Care Provider [phone] Lenka Antoine PharmD Unavailable Reason for Visit * Reason Onset Date Comments Med Change Request Med Refill 11/01/2023 Patient son walk ed in stating insulin prescribed yesterday they don't have it in [facility] , Patient son is requesting a different insulin to be sent to [facility] patient needs to insulin today. Any questions call [phone] Christopher Inman Encounter Details Date Type Department Care Team (Late st Contact Info) Description 11/01/2023 Refill [facility] [address] [place] [address] Name, MD Abdiel [address] [place], [place] [phone] Type 2 diabetes mellitus with chronic kidney disease on chronic dialysis, with long-term current use of insulin ([facility]) Social History Tobacco Use [...] a different insulin to be sent to [facility] patient needs to insulin today. Any questions call [phone] Christopher Inman documented in this encounter Plan of Treatment Upcoming Encounters Date Type Department Care Team (Late st Contact Info) Description 01/06/2025 11:30 AM EDT Medication Management [facility] [address] [place] [address] Lenka Antoine, PharmD [address] [place] [address] documented as of this encounter Visit Diagnoses Diagnosis Type 2 diabetes mellitus with chronic kidney disease on chronic dialysis, with long-term current use of insulin ([facility]) documented in this encounter Additional Health Concerns Assessment Noted Time PHQ-9 Depression Total Score: 0 07/07/19 23 9:53 AM EDT documented as of this encounter Care Teams Director Of Solutions Architecture Relationship Specialty Start Date End Date Name, MD Abdiel [address] [place] [address] PCP - General Family Medicine 03/20/18 Lenka Antoine, Surinder [address] [place] [address] Pharmacist Pharmacy 11/08/24 documented as of this encounter
--- OUTSIDE RECORDS SUMMARY | 2024-12-09 12:32 | XMS_ITS | Encounter Summary ---
Author Organization [facility], Address [address] [place] [address] Phone Care Team Providers Care Event Management Consultant Name Role Phone Name, Abdiel COX Primary Care Provider [phone] Reason for Visit * Reason Comments Med Refill Encounter Details Date Type Department Care Team (Late Contact Info) Description 04/09/2020 Refill [facility] [address] [place] [phone] Vinay Santiago MD [address] [place] [phone] Social History Tobacco Use Types Packs/Day Years [...] visit [facility] - [facility] [address] [place] [phone] documented as of this encounter Visit Diagnoses Not on filedocumented in this encounter Care Teams Event Management Consultant Relationship Specialty Start Date End Date Name, MD Abdiel [address] [place] [address] PCP - General 01/22/19 documented as of this encounter
--- OUTSIDE RECORDS SUMMARY | 2024-12-09 12:32 | XMS_ITS | Encounter Summary ---
Author Organization [employer] Address [address] [facility] 7t [place] [address] Care Team Providers Care Rate Manager Name Role Phone Name, Abdiel COX Primary Care Provider [phone] Lenka Antoine PharmD Unavailable [phone] Reason for Visit * Reason Comments Med Change Request Encounter Details Date Type Department Care Team (Late st Contact Info) Description 06/14/2024 Refill [facility] [address] [place], [place] [phone] Name, MD Abdiel [address] [place], [place] [phone] Social History Tobacco Use Types Packs/Day Years [...] Description 01/06/2025 11:30 AM EDT Medication Management [facility] [address] [place] [phone] Lenka Antoine, PharmD [address] [place] [address] documented as of this encounter Visit Diagnoses Not on filedocumented in this encounter Additional Health Concerns Assessment Noted Time PHQ-9 Depression Total Score: 0 07/07/19 9:53 AM EDT documented as of this encounter Care Teams Rate Manager Relationship Specialty Start Date End Date Name, MD Abdiel [address] [place] [address] PCP - General Family Medicine 03/20/18 Lenka Antoine, PharmD [address] [place] [address] Pharmacist Pharmacy 11/08/24 documented as of this encounter
--- OUTSIDE RECORDS SUMMARY | 2024-12-09 12:32 | XMS_ITS | Encounter Summary ---
Author Organization [email or web address] Address [address] [facility] 7t [place] [address] Care Team Providers Care Loan Auditor Name Role Phone Name, Abdiel COX Primary Care Provider [phone] Lenka Antoine PharmD Unavailable [phone] Reason for Visit * Reason Comments Med Refill Encounter Details Date Type Department Care Team (Late st Contact Info) Description 05/22/2024 Refill [facility] [address] [place], [place] [phone] Name, MD Abdiel [address] [place], [place] [phone] Social History Tobacco Use Types Packs/Day Years [...] Description 01/06/2025 11:30 AM EDT Medication Management [facility] [address] [place] [address] Lenka Antoine, PharmD [address] [place] [address] documented as of this encounter Visit Diagnoses Not on filedocumented in this encounter Additional Health Concerns Assessment Noted Time PHQ-9 Depression Total Score: 0 07/07/19 9:53 AM EDT documented as of this encounter Care Teams Loan Auditor Relationship Specialty Start Date End Date Name, MD Abdiel [address] [place] [phone] PCP - General Family Medicine 03/20/18 Lenka Antoine, PharmD [address] [place] [address] Pharmacist Pharmacy 11/08/24 documented as of this encounter
--- OUTSIDE RECORDS SUMMARY | 2024-12-09 12:32 | XMS_ITS | Clinical Summary ---
Author Organization [facility] Address [address] [place] [phone] Phone Care Team Providers Care Banquet Pilot Name Role Phone Name, Abdiel COX Primary Care Provider [phone] Allergies No known active allergies Medications amLODIPine (NORVASC) 5 MG tablet Take 10 mg by mouth daily. 3 Active atorvastatin (LIPITOR) 20 MG tablet Take 1 tablet by mouth daily. 3 Active carvedilol (COREG) 25 MG tablet Take 25 mg by mouth 2 (two) times a day with meals. Active benzonatate (TESSALON) 200 MG capsule TAKE 1 CAPSULE BY MOUTH TWICE A DAY NEEDED FOR COUGH FOR 30 DAYS 3 Active fluticasone furoate-vilante roL (BREO ELLIPTA) 100-25 mcg/dose inhaler Inhale 1 puff into the lungs daily. 3 Active AURYXIA 210 mg iron Tab TAKE 3 TABLETS BY MOUTH THREE TIMES A DAY WITH MEALS. SWALLOW WHOLE, DO NOT CHEW OR CRUSH MEDICATION 3 Active hydrOXYzine (VISTARIL) 25 MG capsule TAKE 1 CAPSULE (25 MG TOTAL) BY MOUTH 3 (THREE) TIMES A DAY IF NEEDED FOR ITCHING 3 Active tamsulosin (FLOMAX) 0.4 mg Cap TAKE 1 CAPSULE BY MOUTH EVERY DAY 1/2 HOUR FOLLOWING THE SAME MEAL EACH DAY Active mirtazapine (REMERON) 15 MG tablet TAKE 1 TABLET BY MOUTH EVERY DAY BEFORE BEDTIME 4 Active INSULIN ASPART U-100 SUBQ Pt states he take it once in a while Active aspirin 81 MG EC tablet Take 1 tablet by mouth. 2 Active acetaminophen (TYLENOL) 325 mg tablet Take 650 mg by mouth every 6 (six) hours as needed. 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 Not on christy e 05/02/2023 Are you concerned about learning? Not on file 05/02/2023 No 05/02/2023 No 05/02/2023 Digital Access Answer Date Recorded No 05/02/2023 No 05/02/2023 Reliable internet access at home? Not on file 05/02/2023 Device with a working camera? Not on file Sex and Gender Information Value Date Recorded Sex Assigned at Not on file Legal Sex Male 10:58 AM EST Gender Identity Not on file Sexual Orientation Not on file Plan of Treatment Health Maintenance Due Date Last Done Comments BLOOD PRESSURE 1942 DEPRESSION SCREENING 1954 ZOSTER VACCINES (1 of 2) 1961 RSV VACCINE (1 - 1-dose 75+ series) 2017 PNEUMOCOCCAL VACCINES (50+ years) (2 of 2 - PCV) 11/15/2018 11/15/2017 INFLUENZA VACCINE (#1) 2024 COVID-19 VACCINE ( season) 2024 HEMOGLOBIN A1C 03/26/2025 09/23/2024, 0409/2024, 04/04/2024, Additional history exists DIABETIC EYE EXAM 07/24/2025 07/24/2024, , 05/17/2023, Additional history exists Adult Td,Tdap Booster 02/01/2026 02/02/2016 HEPATITIS A VACCINES Aged Out No long er eligible based on patient's age to complete this topic HIB VACCINES Aged Out No longer eligi ble based on patient's age to complete this topic MENINGOCOCCAL VACCINES (ACWY) Aged Out No longer eligible based on patient's age to complete this topic MENINGOCOCCAL VACCINES (B) Aged Out N o longer eligible based on patient's age to complete this topic Medical Devices Not on file Procedures Procedure Name Priority Date/Time Associated Diagnosis Comments EXTERNAL PHOTOGRAPHY - OU - BOTH EYES Routine 09/25/2024 11:53 AM EDT Conjunctival pigmentation, bilateral from Last 3 Months Results * External Photography - OU - Both Eyes (09/25/2024 11:53 AM EDT) Anatomical Region Laterality Modality Head Other Narrative 09/25/2024 11:53 AM EDT diffuse conjunctival pigmentation both eyes stable both eyes Phi Gonsales MD, PhD OPHTHALMOLOGY IMAGING F inal Result from Last 3 Months Insurance MEDICARE PART A & [place] [facility] [place] & B HEALTH MEDICARE PART A & [place] Care Teams Banquet Pilot Relationship Specialty Start Date End Date Name, MD Abdiel [address] [place] [address] PCP - General Internal Medicine 04/17/23 Additional Source Comments The information contained in this document represents components of the legal health record. It is not the complete legal health record.[facility]
--- OUTSIDE RECORDS SUMMARY | 2024-12-09 12:32 | XMS_ITS | Encounter Summary ---
Author Organization [facility] Address [address] [place] [address] [place] [address] Care Team Providers Care Auxiliary Power Equipment Operator Name Role Phone Name, Abdiel COX Primary Care Provider [phone] Lenka Antoine PharmD Unavailable [phone] Encounter Details Date Type Department Care Team (Late st Contact Info) Description 04/18/2022 Orders Only [facility] [address] [place] [id number] Dodie Bacon LPN Social History Tobacco Use [...] Description 01/06/2025 11:30 AM EDT Medication Management [facility] [address] [place] [phone] Lenka Antoine, PharmD [address] [place] [address] documented as of this encounter Visit Diagnoses Not on filedocumented in this encounter Care Teams Auxiliary Power Equipment Operator Relationship Specialty Start Date End Date Name, MD Abdiel [address] [place] [address] PCP - General Family Medicine 03/20/18 Lenka Antoine, TatiD [address] [place] [phone] Pharmacist Pharmacy 11/08/24 documented as of this encounter
--- OUTSIDE RECORDS SUMMARY | 2024-12-09 12:32 | XMS_ITS | Encounter Summary ---
Author Organization [employer] Address [address] [facility] [address] [place] [address] Care Team Providers Care Spanish Tutor Name Role Phone Name, Abdiel COX Primary Care Provider [phone] Lenka Antoine PharmD Unavailable [phone] Reason for Visit * Reason Onset Date Comments Appointment Request 05/22/2024 Encounter Details Date Type Department Care Team (Late st Contact Info) Description 05/22/2024 Telephone [facility] [address] [place], [place] [phone] Name, MD Abdiel [address] [place], [place] [phone] Appointment Request Social History Tobacco Use Types [...] Tuesdays or . Contact pt Son at [phone] documented in this encounter Plan of Treatment Upcoming Encounters Date Type Department Care Team (Late st Contact Info) Description 01/06/2025 11:30 AM EDT Medication Management [facility] [address] [place] [address] Lenka Antoine PharmD [address] [place] [address] documented as of this encounter Visit Diagnoses Not on filedocumented in this encounter Additional Health Concerns Assessment Noted Time PHQ-9 Depression Total Score: 0 07/07/19 23 9:53 AM EDT documented as of this encounter Care Teams Spanish Tutor Relationship Specialty Start Date End Date Name, MD Abdiel [address] [place] [address] PCP - General Family Medicine 03/20/18 Lenka Antoine, PharmD [address] [place] [address] Pharmacist Pharmacy 11/08/24 documented as of this encounter
== END 2024-12-09 10:50 | disposition home or self-care (01) ==
LOC: HO.HCS 10:10
PROVIDERS: PCP Internal Medicine Geriatric Medicine; Visit Provider Internal Medicine Cardiovascular Disease
DX: I25.10 Atherosclerotic heart disease of native coronary artery without angina pectoris (principal); I42.9 Cardiomyopathy, unspecified; I10 Essential (primary) hypertension
CPT/HCPCS: 93010; 99214; G2211

== ENCOUNTER → 2024-12-09 10:10 | Outpatient (BNVA) | payer MEDICARE, MEDICAID, SELFPAY | PROVIDERS: PCP Internal Medicine Geriatric Medicine; Visit Provider Internal Medicine Cardiovascular Disease | DX: I25.10 Atherosclerotic heart disease of native coronary artery without angina pectoris (principal); I42.9 Cardiomyopathy, unspecified; I10 Essential (primary) hypertension; I44.0 Atrioventricular block, first degree; I51.7 Cardiomegaly; R94.31 Abnormal electrocardiogram [ECG] [EKG] | CPT/HCPCS: 93005; 99212 ==